=== PATIENT | male | born 1940 | race Caucasian/White ===

== ENCOUNTER 2020-05-16 15:42 | Observation (INO) | payer MEDICARE, BC ==
[2020-05-16] MEDS ORDERED: Glucagon,Human Recombinant 1 MG Vial IM PRN ×2 (16:26)
[2020-05-16] MEDS ORDERED: 50% Dextrose in Water 50 ML Syringe IV PRN (16:26)
[2020-05-16] MEDS ORDERED: Ondansetron 4 MG Tab.DIS PO PRN (16:26)
[2020-05-16] MEDS ORDERED: Ondansetron 4 MG/2 ML SDV IVPUSH PRN (16:26)
[2020-05-16] MEDS ORDERED: 50% Dextrose in Water 50 ML Syringe IVPUSH PRN (16:26)
[2020-05-16] MEDS ORDERED: Albuterol 0.083% 2.5 MG/3 ML Neb Soln NEB PRN (16:26)
[2020-05-16] MEDS ORDERED: Acetaminophen 325 MG Tab PO PRN (16:26)
[2020-05-16] MEDS ORDERED: LORazepam 1 MG Tab PO PRN (16:33)
[2020-05-16] MEDS ORDERED: Piperacillin/Tazobactam 3.375 GM in Sodium Chloride 0.9% 100 ML IV ONE (17:00)
--- NOTE | 2020-05-16 17:08 | PCM.HP ---
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 Patient reports that his symptoms started yesterday around about afternoon. States that he has felt weak and also started feeling bilateral lower abdominal pain last night that was about 5/10, constant, and nonradiating. Reports that he went to the bathroom multiple times to pee but could not empty his bladder. Reports that at baseline, he normally uses the bathroom twice a night. Denies any hematuria, dysuria, fevers, chills, cough, shortness of breath, chest pain, nausea, vomiting, rhinorrhea, sore throat, vision changes, lightheadedness, focal weakness, or focal loss of sensation. He reports that at baseline he has had tingling sensation in his fingers for 15 years. He otherwise denies any acute focal neurologic symptoms. Reports that he drinks 1 or 2 beers occasionally. Denies tobacco or illicit drug use. Per chart review, patient has MS with spasticity and was last seen by his neurologist about 3 and half years ago. Has no recent hospitalization. In the clinic, CT abdomen pelvis showed symmetric mild enlargement inhomogeneously dense prostate gland with dense midline calcifications elevating the base of the bladder and associated with mild ureterectasis bilaterally. Also showed distended urinary bladder with concern for bladder outlet obstruction. UA was negative for nitrites or leukocytes. CBC showed WBC count of 16.81 with neutrophil count of 84.3 and absolute neutrophil count of 14.19. Renal function was stable with creatinine of 1.2 which is baseline. Bicarb normal at 24.5 and anion gap normal at 12.5. LFTs were normal. - Related Data Allergies/Adverse Reactions: Allergies Allergy/AdvReac Type Severity Reaction Status Date / Time No Known Allergies Allergy Verified 02/01/17 10:26 Home Medications: Home Meds Ascorbic Acid [Vitamin C] 500 mg PO DAILY 05/16/20 [History] Aspirin [Aspirin EC] 81 mg PO DAILY 05/16/20 [History] Baclofen 10 mg PO TID 05/16/20 [History] Calcium Carb, Citrate/Vit D3 [Citracal + D ER] 1 tab PO DAILY 05/16/20 [History] Cyanocobalamin (Vitamin B-12) [Vitamin B12] 2,500 mcg PO DAILY 05/16/20 [History] Folic Acid 0.8 mg PO DAILY 05/16/20 [History] LORazepam [Lorazepam] 1 mg PO BEDTIME PRN 05/16/20 [History] Omeprazole 20 mg PO ACBREAKFAST 05/16/20 [History] Pravastatin [Pravachol] 20 mg PO BEDTIME 05/16/20 [History] Sulfamethoxazole/Trimethoprim [Bactrim Ds Tablet] 1 tab PO BID 05/16/20 [History] Vitamin B Complex [B Complex] 1 tab PO DAILY 05/16/20 [History] amLODIPine [Norvasc] 5 mg PO DAILY 05/16/20 [History] metFORMIN [Glucophage XR] 1,000 mg PO BIDMEALS 05/16/20 [History] H&P Review of Systems - Review of Systems: Review Of Systems: Comprehensive ROS is negative, except as noted in HPI. Exam - Exam Exam: See Below - Exam General: Alert, Oriented, Cooperative HEENT: Conjunctiva Clear, EOMI, Hearing Intact, Mucosa Moist & [place] Neck: Supple, Trachea Midline Lungs: Clear to Auscultation, Normal Respiratory Effort Cardiovascular: Regular Rate, Regular Rhythm GI/Abdominal Exam: Normal Bowel Sounds, Soft, Non-Tender, No Distention Extremities: Normal Inspection, Normal Range of Motion, Non-Tender, No Pedal Edema Peripheral Pulses: 2+: Radial (L), Radial (R), Dorsalis Pedis (L), Dorsalis Pedis (R) Skin: Warm, Dry, Intact Neuro Extensive - Mental Status: Alert, Oriented x3, Normal Mood/Affect Psychiatric: Alert, Normal Affect, Normal Mood - Patient Data Lab Results Last 24 hrs: Laboratory Results - last 24 hr 05/16/20 Range/Units 15:55 SARS-CoV-2 RNA ([facility]O) Negative (NEGATIVE) - Problem List (1) Acute urinary retention SNOMED Code(s): 625055631 ICD Code: R33.8 - OTHER RETENTION OF URINE Status: Acute Current Visit: Yes (2) SIRS (systemic inflammatory response syndrome) SNOMED Code(s): 585900684 ICD Code: R65.10 - SIRS OF NON-INFECTIOUS ORIGIN W/O ACUTE ORGAN DYSFUNCTION Status: Acute Current Visit: Yes (3) Multiple sclerosis SNOMED Code(s): 02965887 ICD Code: G35 - MULTIPLE SCLEROSIS Status: Acute Current Visit: Yes (4) Type II diabetes mellitus SNOMED Code(s): 68225028 ICD Code: E11.9 - TYPE 2 DIABETES MELLITUS WITHOUT COMPLICATIONS Status: Acute Current Visit: Yes (5) REGINO (obstructive sleep apnea) SNOMED Code(s): 53095525 ICD Code: G47.33 - OBSTRUCTIVE SLEEP APNEA (ADULT) (PEDIATRIC) Status: Acute Current Visit: Yes (6) Hypercholesteremia SNOMED Code(s): 43905500 ICD Code: E78.00 - PURE HYPERCHOLESTEROLEMIA, UNSPECIFIED Status: Acute Current Visit: Yes (7) Essential hypertension SNOMED Code(s): 86437628 ICD Code: I10 - ESSENTIAL (PRIMARY) HYPERTENSION Status: Acute Current Visit: Yes Problem List Initiated/Reviewed/Updated: Yes Orders Last 24hrs: Active Orders 24 hr Category Date Time Status Patient Status [ADT] Routine ADT 05/16/20 15:46 Active Blood Glucose Check, Bedside [RC] QIDACANDBED Care 05/16/20 16:26 Ordered Diabetes Education [RC] Click to Edit Care 05/16/20 16:28 Ordered Insert Urinary Catheter [OM.PC] Q24H Care 05/16/20 16:45 Ordered Notify Provider [RC] PRN Care 05/16/20 16:28 Ordered Oxygen Therapy [RC] PRN Care 05/16/20 16:28 Ordered RT Aerosol Therapy [RC] ASDIRECTED Care 05/16/20 16:32 Ordered Urinary Catheter Assessment [RC] ASDIRECTED Care 05/16/20 16:42 Ordered VTE/DVT Education [RC] PER UNIT ROUTINE Care 05/16/20 16:28 Ordered Vital Signs [RC] Q4H Care 05/16/20 16:28 Ordered OT Evaluation and Treatment [CONS] Routine Cons 05/16/20 16:26 Ordered PT Evaluation and Treatment [CONS] Routine Cons 05/16/20 16:26 Ordered Consistent Carbohydrate Diet [DIET] Diet 05/16/20 Dinner Ordered Lumbar Spine Comp w wo Cont [MR] Routine Exams 05/16/20 16:36 Ordered CULTURE BLOOD [BC] Stat Lab 05/16/20 16:42 Ordered CULTURE BLOOD [BC] Stat Lab 05/16/20 16:42 Ordered Acetaminophen [TylenoL] Med 05/16/20 16:26 Ordered 650 mg PO Q4H PRN Albuterol [Proventil Neb Soln] Med 05/16/20 16:26 Ordered 2.5 mg NEB Q2H PRN Ascorbic Acid [Vitamin C] Med 05/17/20 09:00 Ordered 500 mg PO DAILY Aspirin [Halfprin] Med 05/17/20 09:00 Ordered 81 mg PO DAILY Baclofen [Lioresal] Med 05/16/20 21:00 Ordered 10 mg PO TID Calcium Carb, Citrate/Vit D3 [Citracal + D ER] Med 05/17/20 09:00 Ordered 1 tab PO DAILY Cyanocobalamin (Vitamin B-12) [Vitamin B12] Med 05/17/20 09:00 Ordered 2,500 mcg PO DAILY Dextrose 50% in Water Med 05/16/20 16:26 Ordered 25 ml IVPUSH ASDIRECTED PRN Dextrose 50% in Water Med 05/16/20 16:26 Ordered 50 ml IV ASDIRECTED PRN Docusate Sodium/Sennosides [Senna Plus] Med 05/16/20 16:26 Ordered 1 tab PO BEDTIME PRN Enoxaparin [Lovenox] Med 05/17/20 09:00 Ordered 40 mg SUBCUT DAILY Folic Acid [Folic Acid] Med 05/17/20 09:00 Ordered 0.8 mg PO DAILY Glucagon,Human Recombinant [GlucaGen] Med 05/16/20 16:26 Ordered 1 mg IM ASDIRECTED PRN Insulin Lispro [HumaLOG] Med 05/16/20 21:00 Ordered See Protocol SUBCUT ACBED LORazepam [Ativan] Med 05/16/20 16:33 Ordered 1 mg PO BEDTIME PRN Omeprazole Med 05/17/20 06:00 Ordered 20 mg PO ACBREAKFAST Ondansetron [Zofran ODT] Med 05/16/20 16:26 Ordered 4 mg PO Q6H PRN Ondansetron [Zofran] Med 05/16/20 16:26 Ordered 4 mg IVPUSH Q6H PRN Piperacillin/Tazobactam [Zosyn] 3.375 gm Med 05/16/20 16:54 Ordered Sodium Chloride 0.9% [Normal Saline] 100 ml IV ONETIME Pravastatin [Pravachol] Med 05/16/20 21:00 Ordered 20 mg PO BEDTIME Vitamin B Complex [B Complex] Med 05/17/20 09:00 Ordered 1 tab PO DAILY amLODIPine [Norvasc] Med 05/17/20 09:00 Ordered 5 mg PO DAILY Blood Culture x2 Reflex Set [OM.PC] Stat Oth 05/16/20 16:35 Ordered Resuscitation Status Routine Resus Stat 05/16/20 16:26 Ordered Medication Orders Acetaminophen (Tylenol) 650 mg PO Q4H PRN PRN Reason: Pain Albuterol (Proventil Neb Soln) 2.5 mg NEB Q2H PRN PRN Reason: shortness of breath/wheezing Amlodipine Besylate (Norvasc) 5 mg PO DAILY [facility] Aspirin (Halfprin) 81 mg PO DAILY [facility] Baclofen (Lioresal) 10 mg PO TID [facility] Dextrose/Water (Dextrose 50% In Water) 25 ml IVPUSH ASDIRECTED PRN PRN Reason: Hypoglycemia Dextrose/Water (Dextrose 50% In Water) 50 ml IV ASDIRECTED PRN PRN Reason: Hypoglycemia Enoxaparin Sodium (Lovenox) 40 mg SUBCUT DAILY [facility] Glucagon (Glucagen) 1 mg IM ASDIRECTED PRN PRN Reason: Hypoglycemia Piperacillin Sod/Tazobactam (Sod 3.375 gm/ Sodium Chloride) 100 mls @ 200 mls/hr IV ONETIME ONE Stop: 05/16/20 17:29 Insulin Human Lispro (Humalog) 0 unit SUBCUT QIDACANDBED [facility]; Protocol Lorazepam (Ativan) 1 mg PO BEDTIME PRN PRN Reason: Sleep Non-Formulary Medication (Ascorbic Acid [Vitamin C]) 500 mg PO DAILY [facility] Non-Formulary Medication (Calcium Carb, Citrate/Vit D3 [Citracal + D Er]) 1 tab PO DAILY [facility] Non-Formulary Medication (Cyanocobalamin (Vitamin B-12) [Vitamin B12]) 2,500 mcg PO DAILY [facility] Non-Formulary Medication (Folic Acid [Folic Acid]) 0.8 mg PO DAILY [facility] Non-Formulary Medication (Vitamin B Complex [B Complex]) 1 tab PO DAILY [facility] Omeprazole (Omeprazole) 20 mg PO ACBREAKFAST [facility] Ondansetron HCl (Zofran Odt) 4 mg PO Q6H PRN PRN Reason: nausea, able to take PO Ondansetron HCl (Zofran) 4 mg IVPUSH Q6H PRN PRN Reason: Nausea/Vomiting Pravastatin Sodium (Pravachol) 20 mg PO BEDTIME [facility] Senna/Docusate Sodium (Senna Plus) 1 tab PO BEDTIME PRN PRN Reason: Constipation Assessment/Plan Comment:: Patient is a 80-year-old male with medical history significant for multiple sclerosis, 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 No definitive source of infection on physical exam, his tory, or imaging. #Acute urinary tension #Probable MS flare: Patient with urinary retention with dribbling and urinary frequency. CT scan shows mild prostate enlargement out of proportion with patient symptoms. He also reports weakness. UA is negative for leukocytes or nitrites. Patient had leukocytosis and tachycardia in clinic. Espinoza catheter placement Due to patient's presentation with acute urinary retention and negative UA and CT with no significant planning to explain his urinary retention, there was concern of probable MS flare. Especially given the context of weakness that started around the same time as his urinary retention. However, I am unable to obtain MRI and there is no neurology service available. Therefore patient needs to be transferred to higher level of care. #SIRS: Patient with WBC count of 16 and heart rate of 100 in the clinic. UA is negative. CT abdomen pelvis negative for source of infection. Lungs are clear. Patient denies any upper respiratory symptoms. He has been afebrile. Obtain blood cultures Empiric antibiotics #Type 2 diabetes Hold Metformin Cover with sliding scale insulin hypoglycemia protocol #Multiple sclerosis: Continue baclofen and Klonopin #REGINO: CPAP at night #Hypertension Continue home medication DVT prophylaxis: Heparin GI prophylaxis: Diabetic diet CODE STATUS: Full code per patient preference
--- NOTE | 2020-05-16 17:53 | PCM.DCSUM1 ---
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 Patient reports that his symptoms started yesterday around about afternoon. States that he has felt weak and also started feeling bilateral lower abdominal pain last night that was about 5/10, constant, and nonradiating. Reports that he went to the bathroom multiple times to pee but could not empty his bladder. Reports that at baseline, he normally uses the bathroom twice a night. Denies any hematuria, dysuria, fevers, chills, cough, shortness of breath, chest pain, nausea, vomiting, rhinorrhea, sore throat, vision changes, lightheadedness, focal weakness, or focal loss of sensation. In the clinic, CT abdomen pelvis showed symmetric mild enlargement inhomogeneously dense prostate gland with dense midline calcifications elevating the base of the bladder and associated with mild ureterectasis bilaterally. Also showed distended urinary bladder with concern for bladder outlet obstruction. UA was negative for nitrites or leukocytes. CBC showed WBC count of 16.81 with neutrophil count of 84.3 and absolute neutrophil count of 14.19. Renal function was stable with creatinine of 1.2 which is baseline. Bicarb normal at 24.5 and anion gap normal at 12.5. LFTs were normal. Patient was admitted for possible MS flare resulting in urinary retention. Also has leukocytosis with tachycardia. Blood cultures obtained. Unable to obtain MRI locally and there is no neurology service available. Espinoza was placed and patient was started on Zosyn. He is being transferred to higher level of care. 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 Patient reports that his symptoms started yesterday around about afternoon. States that he has felt weak and also started feeling bilateral lower abdominal pain last night that was about 5/10, constant, and nonradiating. Reports that he went to the bathroom multiple times to pee but could not empty his bladder. Reports that at baseline, he normally uses the bathroom twice a night. Denies any hematuria, dysuria, fevers, chills, cough, shortness of breath, chest pain, nausea, vomiting, rhinorrhea, sore throat, vision changes, lightheadedness, focal weakness, or focal loss of sensation. He reports that at baseline he has had tingling sensation in his fingers for 15 years. He otherwise denies any acute focal neurologic symptoms. Reports that he drinks 1 or 2 beers occasionally. Denies tobacco or illicit drug use. Per chart review, patient has MS with spasticity and was last seen by his neurologist about 3 and half years ago. Has no recent hospitalization. In the clinic, CT abdomen pelvis showed symmetric mild enlargement inhomogeneously dense prostate gland with dense midline calcifications elevating the base of the bladder and associated with mild ureterectasis bilaterally. Also showed distended urinary bladder with concern for bladder outlet obstructi on. UA was negative for nitrites or leukocytes. CBC showed WBC count of 16.81 with neutrophil count of 84.3 and absolute neutrophil count of 14.19. Renal function was stable with creatinine of 1.2 which is baseline. Bicarb normal at 24.5 and anion gap normal at 12.5. LFTs were normal. Diagnosis: Stroke: No - Discharge Data Discharge Date: 05/16/20 Discharge Disposition: DC/Tfer to Acute Hospital 02 Condition: Good - Referral to Home Health Primary Care Physician: Vandana Robertson NP - Discharge Diagnosis/Problem(s) (1) Acute urinary retention SNOMED Code(s): 452269295 ICD Code: R33.8 - OTHER RETENTION OF URINE Status: Acute Current Visit: Yes (2) SIRS (systemic inflammatory response syndrome) SNOMED Code(s): 167157338 ICD Code: R65.10 - SIRS OF NON-INFECTIOUS ORIGIN W/O ACUTE ORGAN DYSFUNCTION Status: Acute Current Visit: Yes (3) Multiple sclerosis SNOMED Code(s): 24879093 ICD Code: G35 - MULTIPLE SCLEROSIS Status: Acute Current Visit: Yes (4) Type II diabetes mellitus SNOMED Code(s): 27925729 ICD Code: E11.9 - TYPE 2 DIABETES MELLITUS WITHOUT COMPLICATIONS Status: Acute Current Visit: Yes (5) REGINO (obstructive sleep apnea) SNOMED Code(s): 25679012 ICD Code: G47.33 - OBSTRUCTIVE SLEEP APNEA (ADULT) (PEDIATRIC) Status: Acute Current Visit: Yes (6) Hypercholesteremia SNOMED Code(s): 78085096 ICD Code: E78.00 - PURE HYPERCHOLESTEROLEMIA, UNSPECIFIED Status: Acute Current Visit: Yes (7) Essential hypertension SNOMED Code(s): 52177709 ICD Code: I10 - ESSENTIAL (PRIMARY) HYPERTENSION Status: Acute Current Visit: Yes - Patient Summary/Data Consults: Consultations 05/16/20 16:26 OT Evaluation and Treatment [CONS] Routine PT Evaluation and Treatment [CONS] Routine - Discharge Plan *PRESCRIPTION DRUG MONITORING PROGRAM REVIEWED*: No *COPY OF PRESCRIPTION DRUG MONITORING REPORT IN PATIENT SASCHA: No Home Medications: Home Meds Ascorbic Acid [Vitamin C] 500 mg PO DAILY 05/16/20 [History] Aspirin [Aspirin EC] 81 mg PO DAILY 05/16/20 [History] Baclofen 10 mg PO TID 05/16/20 [History] Calcium Carb, Citrate/Vit D3 [Citracal + D ER] 1 tab PO DAILY 05/16/20 [History] Cyanocobalamin (Vitamin B-12) [Vitamin B12] 2,500 mcg PO DAILY 05/16/20 [History] Folic Acid 0.8 mg PO DAILY 05/16/20 [History] LORazepam [Lorazepam] 1 mg PO BEDTIME PRN 05/16/20 [History] Omeprazole 20 mg PO ACBREAKFAST 05/16/20 [History] Pravastatin [Pravachol] 20 mg PO BEDTIME 05/16/20 [History] Sulfamethoxazole/Trimethoprim [Bactrim Ds Tablet] 1 tab PO BID 05/16/20 [History] Vitamin B Complex [B Complex] 1 tab PO DAILY 05/16/20 [History] amLODIPine [Norvasc] 5 mg PO DAILY 05/16/20 [History] metFORMIN [Glucophage XR] 1,000 mg PO BIDMEALS 05/16/20 [History] Referrals: Vandana Robertson NP [Primary Care Provider] - - Discharge Summary/Plan Comment DC Time >30 min.: Yes - General Info Date of Service: 05/16/20 Admission Dx/Problem (Free Text: Admission Diagnosis/Problem Admission Diagnosis/Problem Urinary retention due to benign prostatic hyperplasia - Patient Data Vitals - Most Recent: Last Vital Signs Temp 98.9 F 05/16/20 16:28 Pulse 89 05/16/20 16:28 Resp 16 05/16/20 16:28 BP 155/66 H 05/16/20 16:28 Pulse Ox 98 05/16/20 16:28 Lab Results - Last 24 hrs: Laboratory Results - last 24 hr 05/16/20 05/16/20 Range/Units 15:55 17:23 POC Glucose 162 H (83-110) mg/dl SARS-CoV-2 RNA ([facility]) Negative (NEGATIVE) Med Orders - Current: Current Medications Acetaminophen (Tylenol) 650 mg PO Q4H PRN PRN Reason: Pain Albuterol (Proventil Neb Soln) 2.5 mg NEB Q2H PRN PRN Reason: shortness of breath/wheezing Amlodipine Besylate (Norvasc) 5 mg PO DAILY [facility] Aspirin (Halfprin) 81 mg PO DAILY [facility] Baclofen (Lioresal) 10 mg PO TID [facility] Dextrose/Water (Dextrose 50% In Water) 25 ml IVPUSH ASDIRECTED PRN PRN Reason: Hypoglycemia Dextrose/Water (Dextrose 50% In Water) 50 ml IV ASDIRECTED PRN PRN Reason: Hypoglycemia Enoxaparin Sodium (Lovenox) 40 mg SUBCUT DAILY [facility] Glucagon (Glucagen) 1 mg IM ASDIRECTED PRN PRN Reason: Hypoglycemia Insulin Human Lispro (Humalog) 0 unit SUBCUT QIDACANDBED [facility]; Protocol Lorazepam (Ativan) 1 mg PO BEDTIME PRN PRN Reason: Sleep Non-Formulary Medication (Ascorbic Acid [Vitamin C]) 500 mg PO DAILY [facility] Non-Formulary Medication (Calcium Carb, Citrate/Vit D3 [Citracal + D Er]) 1 tab PO DAILY [facility] Non-Formulary Medication (Cyanocobalamin (Vitamin B-12) [Vitamin B12]) 2,500 mcg PO DAILY [facility] Non-Formulary Medication (Folic Acid [Folic Acid]) 0.8 mg PO DAILY [facility] Non-Formulary Medication (Vitamin B Complex [B Complex]) 1 tab PO DAILY [facility] Omeprazole (Omeprazole) 20 mg PO ACBREAKFAST [facility] Ondansetron HCl (Zofran Odt) 4 mg PO Q6H PRN PRN Reason: nausea, able to take PO Ondansetron HCl (Zofran) 4 mg IVPUSH Q6H PRN PRN Reason: Nausea/Vomiting Pravastatin Sodium (Pravachol) 20 mg PO BEDTIME [facility] Senna/Docusate Sodium (Senna Plus) 1 tab PO BEDTIME PRN PRN Reason: Constipation Discontinued Medications Glucagon (Glucagen) 1 mg IM ONETIME PRN PRN Reason: Hypoglycemia Piperacillin Sod/Tazobactam (Sod 3.375 gm/ Sodium Chloride) 100 mls @ 200 mls/hr IV ONETIME ONE Stop: 05/16/20 17:29 - Exam General: Reports: Alert, Oriented, Cooperative, No Acute Distress HEENT: Reports: Pupils Equal, Pupils Reactive, Mucous Membr. Moist/[place] Neck: Reports: Supple Lungs: Reports: Clear to Auscultation, Normal Respiratory Effort Cardiovascular: Reports: Regular Rate, Regular Rhythm, No Murmurs GI/Abdominal Exam: Normal Bowel Sounds, Soft, Non-Tender, No Distention Extremities: Normal Inspection, Non-Tender, No Pedal Edema Skin: Reports: Warm, Dry, Intact Neurological: Reports: No New Focal Deficit Psy/Mental Status: Reports: Alert, Normal Affect, Normal Mood
[2020-05-16] MEDS ORDERED: Insulin Lispro 100 Units/ML 3 ML Vial SUBCUT SCH (21:00)
[2020-05-16] MEDS ORDERED: Pravastatin 20 MG Tab PO SCH (21:00)
[2020-05-16] MEDS ORDERED: Baclofen 10 MG Tab PO SCH (21:00)
[2020-05-17] MEDS ORDERED: Omeprazole 20 MG Cap.CR PO SCH (06:00)
[2020-05-17] MEDS ORDERED: VIT D3 PO SCH (09:00)
[2020-05-17] MEDS ORDERED: CALCIUM CARB CITRATE PO SCH (09:00)
[2020-05-17] MEDS ORDERED: VITAMIN B COMPLEX PO SCH (09:00)
[2020-05-17] MEDS ORDERED: Non-Formulary Medication 1 Each (Ascorbic Acid [Vitamin C] 500 MG) PO SCH (09:00)
[2020-05-17] MEDS ORDERED: Enoxaparin 40 MG/0.4 ML Syringe SUBCUT SCH (09:00)
[2020-05-17] MEDS ORDERED: amLODIPine 5 MG Tab PO SCH (09:00)
[2020-05-17] MEDS ORDERED: Aspirin 81 MG Tab.EC PO SCH (09:00)
[2020-05-17] MEDS ORDERED: Non-Formulary Medication 1 Each (Folic Acid [Folic Acid] 0.8 MG) PO SCH (09:00)
[2020-05-17] MEDS ORDERED: CYANOCOBALAMIN 2500 MCG PO SCH (09:00)
== END 2020-05-16 19:30 ==
LOC: DL.MS 15:42
PROVIDERS: ADMIT Internal Medicine; ATTEND Internal Medicine
DX: R33.9 Retention of urine, unspecified (principal); R65.10 Systemic inflammatory response syndrome (SIRS) of non-infectious origin without acute organ dysfunction; G35 Multiple sclerosis; I10 Essential (primary) hypertension; K21.9 Gastro-esophageal reflux disease without esophagitis; E11.9 Type 2 diabetes mellitus without complications; E78.00 Pure hypercholesterolemia, unspecified; G47.33 Obstructive sleep apnea (adult) (pediatric); E53.8 Deficiency of other specified B group vitamins; D72.829 Elevated white blood cell count, unspecified; Z20.828 Contact with and (suspected) exposure to other viral communicable diseases; Z79.82 Long term (current) use of aspirin; Z79.899 Other long term (current) drug therapy; Z79.84 Long term (current) use of oral hypoglycemic drugs
CPT/HCPCS: 36415; 51702; 82962; 87040; 87077; 87186; 96365; G0378; G0379; J2543; J7050; U0002

== ENCOUNTER 2021-02-05 23:06 | Emergency (ER) | payer MEDICARE, BC ==
--- NOTE | 2021-02-05 23:41 | EDM.PDOC ---
ED HPI GENERAL MEDICAL PROBLEM - General Chief Complaint: Fever Stated Complaint: PAIN IN NECK,HAD TEMP 104 AT HOME Time Seen by Provider: 02/05/21 23:16 Source of Information: Reports: Patient, Family, RN Notes Reviewed History Limitations: Reports: No Limitations - History of Present Illness INITIAL COMMENTS - FREE TEXT/NARRATIVE: Pt is here for a fever that started this evening. He was sitting in his recliner when he noted a pain in his neck. His gave him an aspirin. A little while later, his noted that he was flushed and glassy eyes. She called her sons to bring a thermometer and noted his temperature was 104*F temporally. She made him drink several large glasses of cold water and gave him 1000mg of tylenol. On arrival his temperature is 100.1 and he is looking and feeling better per him and his . He denies any pain anywhere. He has a suprapubic catheter that was placed in may of last year for a neurogenic bladder. He notes this is still draining properly. No cough or shortness of breath. No runny or stuffy nose. No cold symptoms. No diarrhea or constipation, no abdominal pain. No known exposure to COVID. He has been vaccinated. Onset: Today Onset Time: 21:00 Treatments SUPERINTENDENT OF GENERATION: Reports: Acetaminophen, Aspirin - Related Data Allergies Allergy/AdvReac Type Severity Reaction Status Date / Time No Known Allergies Allergy Verified 02/01/17 10:26 Home Meds: Home Meds Ascorbic Acid [Vitamin C] 500 mg PO DAILY 05/16/20 [History] Aspirin [Aspirin EC] 81 mg PO DAILY 05/16/20 [History] Baclofen 10 mg PO TID 05/16/20 [History] Calcium Carb, Citrate/Vit D3 [Citracal + D ER] 1 tab PO DAILY 05/16/20 [History] Cyanocobalamin (Vitamin B-12) [Vitamin B12] 2,500 mcg PO DAILY 05/16/20 [History] Folic Acid 0.8 mg PO DAILY 05/16/20 [History] LORazepam [Lorazepam] 1 mg PO BEDTIME PRN 05/16/20 [History] Omeprazole 20 mg PO ACBREAKFAST 05/16/20 [History] Pravastatin [Pravachol] 20 mg PO BEDTIME 05/16/20 [History] Sulfamethoxazole/Trimethoprim [Bactrim Ds Tablet] 1 tab PO BID 05/16/20 [History] Vitamin B Complex [B Complex] 1 tab PO DAILY 05/16/20 [History] amLODIPine [Norvasc] 5 mg PO DAILY 05/16/20 [History] metFORMIN [Glucophage XR] 1,000 mg PO BIDMEALS 05/16/20 [History] Past Medical History - Past Health History Medical/Surgical History: Denies Medical/Surgical History Gastrointestinal History: Reports: Chronic Constipation Genitourinary History: Reports: Neurogenic Bladder, Retention, Urinary, Urinary Incontinence Musculoskeletal History: Reports: Other (See Below) Other Musculoskeletal History: MS Neurological History: Reports: MS Endocrine/Metabolic History: Reports: Diabetes, Type I - Infectious Disease History Infectious Disease History: Reports: Chicken Pox, Measles, Mumps, Rubella - Past Surgical History Musculoskeletal Surgical History: Reports: None Dermatological Surgical History: Reports: None Social & Family History - Family History Family Medical History: No Pertinent Family History - Caffeine Use Caffeine Use: Reports: Coffee ED ROS GENERAL - Review of Systems Review Of Systems: Comprehensive ROS is negative, except as noted in HPI. ED EXAM, GENERAL - Physical Exam Exam: See Below Exam Limited By: No Limitations General Appearance: Alert, WD/WN, No Apparent Distress Eye Exam: Bilateral Eye: Normal Inspection Ears: Normal External Exam Throat/Mouth: Normal Inspection, Normal Voice, No Airway Compromise Head: Atraumatic, Normocephalic Neck: Normal Inspection, Supple, Non-Tender Respiratory/Chest: No Respiratory Distress, Lungs Clear, Normal Breath Sounds, No Accessory Muscle Use. No: Rales, Rhonchi, Wheezing Cardiovascular: Normal Peripheral Pulses, Regular Rate, Rhythm, No Murmur GI/Abdominal: Soft, Non-Tender, No Distention, Other (suprapubic catheter in place, no noted surrounding erythema, warmth or induration). No: Guarding, Rebound (Male) Exam: Deferred Rectal (Males) Exam: Deferred Back Exam: Normal Inspection, Full Range of Motion Extremities: Normal Inspection, No Pedal Edema, Normal Capillary Refill Neurological: Alert, Oriented, Normal Cognition, No Motor/Sensory Deficits Psychiatric: Normal Affect, Normal Mood Skin Exam: Warm, Dry, Intact, Normal Color, No Rash Lymphatic: No Adenopathy Course - Vital Signs Last Recorded V/S: Last Vital Signs Temp 100.1 F 02/05/21 23:28 Pulse 89 02/05/21 23:28 Resp 16 02/05/21 23:28 BP 126/49 L 02/05/21 23:28 Pulse Ox 95 02/05/21 23:28 - Orders/Labs/Meds Orders: Active Orders 24 hr Category Date Time Status CULTURE BLOOD [BC] Stat Lab 02/05/21 23:36 Ordered CULTURE BLOOD [BC] Stat Lab 02/05/21 23:36 Ordered CULTURE URINE [RM] Stat Lab 02/05/21 23:39 Received cefTRIAXone [Rocephin] 1 gm Med 02/06/21 00:37 Ordered Sodium Chloride 0.9% [Normal Saline] 50 ml IV ONETIME Blood Culture x2 Reflex Set [OM.PC] Stat Oth 02/05/21 23:35 Ordered Medication Orders Ceftriaxone Sodium 1 gm/ (Sodium Chloride) 50 mls @ 100 mls/hr IV ONETIME ONE Stop: 02/06/21 01:06 Labs: Laboratory Tests 02/05/21 02/05/21 02/05/21 Range/Units 23:39 23:50 23:50 WBC 15.0 H (5.0-10.0) 10^3/uL RBC 3.27 L (4.6-6.2) 10^6/uL Hgb 11.3 L (14.0-18.0) g/dL Hct 33.7 L (40.0-54.0) % MCV 103.1 H (80-100) fL MCH 34.6 H (27.0-34.0) pg MCHC 33.5 (33.0-35.0) g/dL Plt Count 162 (150-450) 10^3/uL Neut % (Auto) 80.2 H (42.2-75.2) % Lymph % (Auto) 8.3 L (20.5-50.1) % Haines % (Auto) 11.1 H (2-8) % Eos % (Auto) 0.1 L (1.0-3.0) % Baso % (Auto) 0.3 (0.0-1.0) % Sodium 136 (136-145) mmol/L Potassium 4.1 (3.5-5.1) mmol/L Chloride 100 (98-107) mmol/L Carbon Dioxide 26 (21-32) mmol/L Anion Gap 14.1 H (7-13) mEq/L BUN 18 (7-18) mg/dL Creatinine 1.23 (0.70-1.30) mg/dL Est Cr Clr Drug Dosing 54.33 mL/min Estimated GFR (MDRD) 57 BUN/Creatinine Ratio 14.6 (No establ ref range) Glucose 141 H (70-99) mg/dL Lactic Acid (0.4-2.0) mmol/L Calcium 8.0 L (8.5-10.1) mg/dL Total Bilirubin 0.5 (0.2-1.0) mg/dL AST 11 L (15-37) U/L ALT 17 (16-63) U/L Alkaline Phosphatase 63 (46-116) U/L Total Protein 6.2 L (6.4-8.2) g/dL Albumin 3.5 (3.4-5.0) g/dL Globulin 2.7 Albumin/Globulin Ratio 1.3 Urine Color Yellow (YELLOW) Urine Appearance Cloudy (CLEAR) Urine pH 6.0 (5.0-9.0) Ur Specific [place] 1.020 (1.005-1.030) Urine Protein 100 H (NEGATIVE) Urine Glucose (UA) Negative (NEGATIVE) Urine Ketones Negative (NEGATIVE) Urine Occult Blood Moderate H (NEGATIVE) Urine Nitrite Positive H (NEGATIVE) Urine Bilirubin Negative (NEGATIVE) Urine Urobilinogen 0.2 (0.2-1.0) mg/dL Ur Leukocyte Esterase Large H (NEGATIVE) Urine RBC 5-10 H (0-5) /HPF Urine WBC 75-100 H (0-5/HPF) /HPF Ur Epithelial Cells Rare (NOT SEEN) /HPF Amorphous Sediment Moderate (NOT SEEN) /HPF Urine Bacteria Many H (0-FEW/HPF) /HPF Urine Mucus Few H (NOT SEEN) /LPF 02/05/ Range/Units 23:50 WBC (5.0-10.0) 10^3/uL RBC (4.6-6.2) 10^6/uL Hgb (14.0-18.0) g/dL Hct (40.0-54.0) % MCV (80-100) fL MCH (27.0-34.0) pg MCHC (33.0-35.0) g/dL Plt Count (150-450) 10^3/uL Neut % (Auto) (42.2-75.2) % Lymph % (Auto) (20.5-50.1) % [place]aines % (Auto) (2-8) % Eos % (Auto) (1.0-3.0) % Baso % (Auto) (0.0-1.0) % Sodium (136-145) mmol/L Potassium (3.5-5.1) mmol/L Chloride (98-107) mmol/L Carbon Dioxide (21-32) mmol/L Anion Gap (7-13) mEq/L BUN (7-18) mg/dL Creatinine (0.70-1.30) mg/dL Est Cr Clr Drug Dosing mL/min Estimated GFR (MDRD) BUN/Creatinine Ratio (No establ ref range) Glucose (70-99) mg/dL Lactic Acid 1.7 (0.4-2.0) mmol/L Calcium (8.5-10.1) mg/dL Total Bilirubin (0.2-1.0) mg/dL AST (15-37) U/L ALT (16-63) U/L Alkaline Phosphatase (46-116) U/L Total Protein (6.4-8.2) g/dL Albumin (3.4-5.0) g/dL Globulin Albumin/Globulin Ratio Urine Color (YELLOW) Urine Appearance (CLEAR) Urine pH (5.0-9.0) Ur Specific [place] (1.005-1.030) Urine Protein (NEGATIVE) Urine Glucose (UA) (NEGATIVE) Urine Ketones (NEGATIVE) Urine Occult Blood (NEGATIVE) Urine Nitrite (NEGATIVE) Urine Bilirubin (NEGATIVE) Urine Urobilinogen (0.2-1.0) mg/dL Ur Leukocyte Esterase (NEGATIVE) Urine RBC (0-5) /HPF Urine WBC (0-5/HPF) /HPF Ur Epithelial Cells (NOT SEEN) /HPF Amorphous Sediment (NOT SEEN) /HPF Urine Bacteria (0-FEW/HPF) /HPF Urine Mucus (NOT SEEN) /LPF Meds: Medications Generic Name Dose Route Start Last Admin Trade Name Freq PRN Reason Stop Dose Admin Ceftriaxone Sodium 1 gm/ 50 mls @ 100 mls/hr 02/06/21 00:37 Sodium Chloride IV 02/06/21 01:06 ONETIME ONE - Re-Assessments/Exams Free Text/Narrative Re-Assessment/Exam: Reviewed labs and imaging with the pt and his . Rocephin given in the ER, sent home with Rx for keflex. 02/06/21 00:38 Departure - Departure Time of Disposition: 00:39 Disposition: Home, Self-Care 01 Condition: Fair Clinical Impression: UTI (urinary tract infection) Qualifiers: Urinary tract infection type: catheter-associated UTI Indwelling urinary catheter type: cystostomy catheter Encounter type: initial encounter Qualified Code(s): T83.510A - Infection and inflammatory reaction due to cystostomy catheter, initial encounter; N39.0 - Urinary tract infection, site not specified - Discharge Information *PRESCRIPTION DRUG MONITORING PROGRAM REVIEWED*: Not Applicable *COPY OF PRESCRIPTION DRUG MONITORING REPORT IN PATIENT SASCHA: Not Applicable Instructions: Urinary Tract Infection, Adult, [id number] Forms: ED Department Discharge Additional Instructions: Rocephin given in the ER Keflex three times daily for 10 days Over the counter medications as needed to keep down fevers Follow up with primary care provider and specialists as previously arranged, or sooner if needed. Sepsis Event Note (ED) - Evaluation Sepsis Screening Result: Possible Sepsis Risk - Focused Exam Vital Signs: Vital Signs Temp Pulse Resp BP Pulse Ox 02/05/21 23:28 100.1 F 89 16 126/49 L 95 - My Orders Last 24 Hours: My Active Orders 02/05/21 23:35 Blood Culture x2 Reflex Set [OM.PC] Stat 02/05/21 23:36 CULTURE BLOOD [BC] Stat CULTURE BLOOD [BC] Stat 02/05/21 23:39 CULTURE URINE [RM] Stat 02/06/21 00:37 cefTRIAXone [Rocephin] 1 gm Sodium Chloride 0.9% [Normal Saline] 50 ml IV ONETIME - Assessment/Plan Last 24 Hours: My Active Orders 02/05/21 23:35 Blood Culture x2 Reflex Set [OM.PC] Stat 02/05/21 23:36 CULTURE BLOOD [BC] Stat CULTURE BLOOD [BC] Stat 02/05/21 23:39 CULTURE URINE [RM] Stat 02/06/21 00:37 cefTRIAXone [Rocephin] 1 gm Sodium Chloride 0.9% [Normal Saline] 50 ml IV ONETIME
[2021-02-06 00:19] LABS: ANION GAP 14.1 mEq/L (7-13)
--- NOTE | 2021-02-06 00:26 | CR ---
PROCEDURE INFORMATION: Exam: XR Chest Exam date and time: 02/05/2021 11:56 PM Age: 80 years old Clinical indication: Fever TECHNIQUE: Imaging protocol: XR of the chest. Views: 1 view. COMPARISON: No relevant prior studies available. FINDINGS: Lungs: Small areas increased density at the lung bases consistent with subsegmental atelectasis. The remainder of the lung hernandez are clear. Pleural spaces: Slight pleural tenting is seen in the left base presumed from previous inflammatory changes. Heart/Mediastinum: Unremarkable. No cardiomegaly. Bones/joints: Unremarkable. IMPRESSION: Minimal changes at the lung bases only as above
[2021-02-06] MEDS ORDERED: cefTRIAXone 1 GM in Sodium Chloride 0.9% 50 ML IV ONE (00:37)
== END 2021-02-06 00:59 | disposition home or self-care (01) ==
LOC: DL.ED 23:06
DX: T83.510A Infection and inflammatory reaction due to cystostomy catheter, initial encounter (principal); N39.0 Urinary tract infection, site not specified; E10.9 Type 1 diabetes mellitus without complications; Z79.82 Long term (current) use of aspirin; Z79.899 Other long term (current) drug therapy
CPT/HCPCS: 36415; 71045; 80053; 81001; 83605; 85025; 87040; 87086; 87088; 87186; 96374; 99284; J0696

== ENCOUNTER 2021-02-08 23:45 | Emergency (ER) | payer MEDICARE, BC ==
--- NOTE | 2021-02-09 00:29 | EDM.PDOC ---
ED HPI GENERAL MEDICAL PROBLEM - General Chief Complaint: Genitourinary Problem Stated Complaint: BLADDER INFECTION, HIGH TEMP Time Seen by Provider: 02/09/21 00:27 Source of Information: Reports: Patient History Limitations: Reports: No Limitations - History of Present Illness INITIAL COMMENTS - FREE TEXT/NARRATIVE: ED with , reports continued fever. Seen on Saturday with UTI, Suprapubic catheter changed on Saturday. Hx MS and neurogenic bladder. Multiple UTIS in past but this is first since suprapubic catheter placed in May. Appetite fair. Tylenol not much relief today but ibuprofen helped tonight . notes diaphoresis. Patient denies significant c/o - Related Data Allergies Allergy/AdvReac Type Severity Reaction Status Date / Time No Known Allergies Allergy Verified 02/01/17 10:26 Home Meds: Home Meds Ascorbic Acid [Vitamin C] 500 mg PO DAILY 05/16/20 [History] Aspirin [Aspirin EC] 81 mg PO DAILY 05/16/20 [History] Baclofen 10 mg PO TID 05/16/20 [History] Calcium Carb, Citrate/Vit D3 [Citracal + D ER] 1 tab PO DAILY 05/16/20 [History] Cyanocobalamin (Vitamin B-12) [Vitamin B12] 2,500 mcg PO DAILY 05/16/20 [History] Folic Acid 0.8 mg PO DAILY 05/16/20 [History] LORazepam [Lorazepam] 1 mg PO BEDTIME PRN 05/16/20 [History] Omeprazole 20 mg PO ACBREAKFAST 05/16/20 [History] Pravastatin [Pravachol] 20 mg PO BEDTIME 05/16/20 [History] Sulfamethoxazole/Trimethoprim [Bactrim Ds Tablet] 1 tab PO BID 05/16/20 [History] Vitamin B Complex [B Complex] 1 tab PO DAILY 05/16/20 [History] amLODIPine [Norvasc] 5 mg PO DAILY 05/16/20 [History] metFORMIN [Glucophage XR] 1,000 mg PO BIDMEALS 05/16/20 [History] Past Medical History - Past Health History Medical/Surgical History: Denies Medical/Surgical History HEENT History: Reports: None Cardiovascular History: Reports: High Cholesterol, Hypertension Respiratory History: Reports: None Gastrointestinal History: Reports: Chronic Constipation Genitourinary History: Reports: Neurogenic Bladder, Retention, Urinary, Urinary Incontinence Musculoskeletal History: Reports: Other (See Below) Other Musculoskeletal History: MS Neurological History: Reports: MS Psychiatric History: Reports: None Endocrine/Metabolic History: Reports: Diabetes, Type I Hematologic History: Reports: None Immunologic History: Reports: None Oncologic (Cancer) History: Reports: None - Infectious Disease History Infectious Disease History: Reports: Chicken Pox, Measles, Mumps, Rubella - Past Surgical History Head Surgeries/Procedures: Reports: None Male Surgical History: Reports: Suprapubic Catheter Placement Musculoskeletal Surgical History: Reports: None Dermatological Surgical History: Reports: None Social & Family History - Family History Family Medical History: No Pertinent Family History - Tobacco Use Tobacco Use Status *Q: Never Tobacco User Second Hand Smoke Exposure: No - Caffeine Use Caffeine Use: Reports: Coffee - Recreational Drug Use Recreational Drug Use: No ED ROS GENERAL - Review of Systems Review Of Systems: Comprehensive ROS is negative, except as noted in HPI. ED EXAM, GI/ABD - Physical Exam Exam: See Below Exam Limited By: No Limitations General Appearance: Alert, No Apparent Distress Ears: Normal External Exam, Hearing Grossly Normal Nose: Normal Inspection Throat/Mouth: Normal Inspection, Normal Oropharynx, Inflammation Head: Normocephalic Neck: Normal Inspection, Supple, Full Range of Motion Respiratory/Chest: No Respiratory Distress, Lungs Clear, Normal Breath Sounds Cardiovascular: Regular Rate, Rhythm GI/Abdominal Exam: Normal Bowel Sounds, Soft. No: Distended, Guarding, Rebound, Tender, Abnormal Bowel Sounds Back Exam: No: CVA Tenderness (L), CVA Tenderness (R) Neurological: Alert, Oriented, Normal Cognition Psychiatric: Normal Affect Skin Exam: Warm, Dry, Normal Color Course - Vital Signs Last Recorded V/S: Last Vital Signs Temp 98.5 F 02/09/21 02:05 Pulse 88 02/09/21 00:04 Resp 18 02/09/21 00:04 BP 121/52 L 02/09/21 00:04 Pulse Ox 94 L 02/09/21 00:04 - Orders/Labs/Meds Orders: Active Orders 24 hr Category Date Time Status CULTURE BLOOD [BC] Stat Lab 02/09/21 00:40 Received CULTURE BLOOD [BC] Stat Lab 02/09/21 00:44 Received Blood Culture x2 Reflex Set [OM.PC] Stat Oth 02/09/21 00:27 Ordered Labs: Laboratory Tests 02/09/21 02/09/2102/09/21 Range/Units 00:40 00:40 00:40 WBC 6.1 (5.0-10.0) 10^3/uL RBC 3.37 L (4.6-6.2) 10^6/uL Hgb 11.7 L (14.0-18.0) g/dL Hct 34.3 L (40.0-54.0) % MCV 101.8 H (80-100) fL MCH 34.7 H (27.0-34.0) pg MCHC 34.1 (33.0-35.0) g/dL Plt Count 138 L (150-450) 10^3/uL Neut % (Auto) 80.1 H (42.2-75.2) % Lymph % (Auto) 11.1 L (20.5-50.1) % [place] % (Auto) 7.8 (2-8) % Eos % (Auto) 0.5 L (1.0-3.0) % Baso % (Auto) 0.5 (0.0-1.0) % Sodium 135 L (136-145) mmol/L Potassium 4.0 (3.5-5.1) mmol/L Chloride 99 (98-107) mmol/L Carbon Dioxide 24 (21-32) mmol/L Anion Gap 16.0 H (7-13) mEq/L BUN 19 H (7-18) mg/dL Creatinine 1.13 (0.70-1.30) mg/dL Est Cr Clr Drug Dosing 48.62 mL/min Estimated GFR (MDRD) > 60 BUN/Creatinine Ratio 16.8 (No establ ref range) Glucose 117 H (70-99) mg/dL Lactic Acid 1.1 (0.4-2.0) mmol/L Calcium 8.2 L (8.5-10.1) mg/dL Total Bilirubin 0.3 (0.2-1.0) mg/dL AST 32 (15-37) U/L ALT 35 (16-63) U/L Alkaline Phosphatase 75 (46-116) U/L Total Protein 6.5 (6.4-8.2) g/dL Albumin 3.1 L (3.4-5.0) g/dL Globulin 3.4 Albumin/Globulin Ratio 0.91 Amylase 73 (25-115) U/L Lipase 241 (73-393) U/L Meds: Medications Discontinued Medications Generic Name Dose Route Start Last Admin Trade Name Lyssa PRN Reason Stop Dose Admin Levofloxacin/Dextrose 500 mg/ 100 mls @ 100 mls/hr 02/09/21 00:44 02/09/21 00:52 Premix IV 02/09/21 01:43 100 mls/hr ONETIME ONE Administration Departure - Departure Time of Disposition: 01:40 Disposition: Home, Self-Care 01 Condition: Good Clinical Impression: UTI, Urinary tract infectious disease, History of urinary retention, Hx of multiple sclerosis - Discharge Information *PRESCRIPTION DRUG MONITORING PROGRAM REVIEWED*: No *COPY OF PRESCRIPTION DRUG MONITORING REPORT IN PATIENT SASCHA: No Instructions: Urinary Tract Infection, Adult, [id number] Forms: ED Department Discharge Additional Instructions: encourage fluids continue to monitor temperature tylenol 500mg every 4 hours as needed for fever/ discomfort, do not exceed 3000mg in 24 hour period limited use ibuprofen , may alternate with tylenol Clinic recheck on Saturday, sooner if symptoms worsen Sepsis Event Note (ED) - Focused Exam Vital Signs: Vital Signs Temp Pulse Resp BP Pulse Ox 02/09/21 02:05 98.5 F 02/09/21 00:04 98.5 F 88 18 121/52 L 94 L - My Orders Last 24 Hours: My Active Orders 02/09/21 00:27 Blood Culture x2 Reflex Set [OM.PC] Stat 02/09/21 00:40 CULTURE BLOOD [BC] Stat 02/09/21 00:44 CULTURE BLOOD [BC] Stat - Assessment/Plan Last 24 Hours: My Active Orders 02/09/21 00:27 Blood Culture x2 Reflex Set [OM.PC] Stat 02/09/21 00:40 CULTURE BLOOD [BC] Stat 02/09/21 00:44 CULTURE BLOOD [BC] Stat
[2021-02-09] MEDS ORDERED: Levofloxacin/Dextrose 5%-Water 500 MG in Premix Bag 1 BAG IV ONE (00:44)
[2021-02-09 01:27] LABS: CHLORIDE,CL 99 mmol/L (98-107); SODIUM,NA 135 mmol/L (136-145)
== END 2021-02-09 02:05 | disposition home or self-care (01) ==
LOC: DL.ED 23:45
DX: N39.0 Urinary tract infection, site not specified (principal); Z79.82 Long term (current) use of aspirin; E78.00 Pure hypercholesterolemia, unspecified; I10 Essential (primary) hypertension; E10.8 Type 1 diabetes mellitus with unspecified complications; Z79.899 Other long term (current) drug therapy; Z87.448 Personal history of other diseases of urinary system; Z86.69 Personal history of other diseases of the nervous system and sense organs
CPT/HCPCS: 36415; 80053; 82150; 83605; 83690; 85025; 87040; 96365; 99284; J1956

== ENCOUNTER 2021-03-14 17:17 | Emergency (ER) | payer MEDICARE, BC | END 2021-03-14 19:00 | disposition left against medical advice (07) | LOC: DL.ED 17:17 | DX: Z53.21 Procedure and treatment not carried out due to patient leaving prior to being seen by health care provider (principal) ==

== ENCOUNTER 2021-05-22 00:12 | Inpatient (IN) | payer MEDICARE, BC ==
--- NOTE | 2021-05-22 00:48 | CR ---
PROCEDURE INFORMATION: Exam: XR Chest Exam date and time: 05/22/2021 12:28 AM Age: 81 years old Clinical indication: Other: Fever TECHNIQUE: Imaging protocol: XR of the chest. Views: 1 view. COMPARISON: CR Chest 1V Frontal 02/05/2021 11:56 PM FINDINGS: Lungs: Unremarkable. No consolidation. Pleural spaces: Unremarkable. No pleural effusion. No pneumothorax. Heart/Mediastinum: Unremarkable. No cardiomegaly. Bones/joints: Unremarkable. IMPRESSION: No acute findings.
[2021-05-22 01:16] LABS: CHLORIDE,CL 96 mmol/L (98-107); SODIUM,NA 131 mmol/L (136-145)
[2021-05-22] MEDS ORDERED: Sodium Chloride 0.9% 1,000 ML IV ONE (01:28)
[2021-05-22] MEDS ORDERED: Levofloxacin/Dextrose 5%-Water 750 MG in Premix Bag 1 BAG IV ONE (01:32)
--- NOTE | 2021-05-22 01:45 | EDM.PDOC ---
ED HPI GENERAL MEDICAL PROBLEM - General Chief Complaint: General Stated Complaint: WEAKNESS, HIGH TEMP Time Seen by Provider: 05/22/21 01:05 Source of Information: Reports: Family, RN History Limitations: Reports: No Limitations - History of Present Illness INITIAL COMMENTS - FREE TEXT/NARRATIVE: ED with report of high fevers today up to 104.9. Hx MS, Supra pubic catheter x one year. Decreased urine output 2 days prior, , had to flush today to get to drain. Noted concentrated and lots of sediment. Due to change catheter tomorrow in clinic. reports past few times symptoms being noticed around 4-5 weeks and catheter due to be changed every 5 weeks. Increased weakness today. Usually able to walk on own or with walker, Required 2 tonight. Symptoms consistent with prior UTI's. Vomting this adán. No cough or difficulty breathing, Unsure if BM yesterday so care stool softner and mirlax. - Related Data Allergies Allergy/AdvReac Type Severity Reaction Status Date / Time No Known Allergies Allergy Verified 05/22/21 01:02 Home Meds: Home Meds Ascorbic Acid [Vitamin C] 500 mg PO DAILY 05/16/20 [History] Aspirin [Aspirin EC] 81 mg PO DAILY 05/16/20 [History] Baclofen 10 mg PO BID 05/16/20 [History] Calcium Carb, Citrate/Vit D3 [Citracal + D ER] 1 tab PO DAILY 05/16/20 [History] Cyanocobalamin (Vitamin B-12) [Vitamin B12] 2,500 mcg PO DAILY 05/16/20 [History] Folic Acid 0.8 mg PO DAILY 05/16/20 [History] LORazepam [Lorazepam] 0.5 tab PO BEDTIME PRN 05/16/20 [History] Omeprazole 20 mg PO BEDTIME 05/16/20 [History] Pravastatin [Pravachol] 20 mg PO BEDTIME 05/16/20 [History] Vitamin B Complex [B Complex] 1 tab PO DAILY 05/16/20 [History] amLODIPine [Norvasc] 5 mg PO DAILY 05/16/20 [History] metFORMIN [Glucophage XR] 1,000 mg PO BIDMEALS 05/16/20 [History] Past Medical History - Past Health History Medical/Surgical History: Denies Medical/Surgical History HEENT History: Reports: None Cardiovascular History: Reports: High Cholesterol, Hypertension Respiratory History: Reports: None Gastrointestinal History: Reports: Chronic Constipation Genitourinary History: Reports: Neurogenic Bladder, Retention, Urinary, Urinary Incontinence Musculoskeletal History: Reports: Other (See Below) Other Musculoskeletal History: MS Neurological History: Reports: MS Psychiatric History: Reports: None Endocrine/Metabolic History: Reports: Diabetes, Type I Hematologic History: Reports: None Immunologic History: Reports: None Oncologic (Cancer) History: Reports: None - Infectious Disease History Infectious Disease History: Reports: Chicken Pox, Measles, Mumps, Rubella - Past Surgical History Head Surgeries/Procedures: Reports: None Male Surgical History: Reports: Suprapubic Catheter Placement Musculoskeletal Surgical History: Reports: None Dermatological Surgical History: Reports: None Social & Family History - Family History Family Medical History: No Pertinent Family History - Tobacco Use Tobacco Use Status *Q: Former Tobacco User Used Tobacco, but Quit: Yes Month/Year Tobacco Last Used: 06/1961 - Caffeine Use Caffeine Use: Reports: Coffee Caffeine Use Comment: 1 cup coffee daily, then decaf. - Recreational Drug Use Recreational Drug Use: No ED ROS GENERAL - Review of Systems Constitutional: Reports: Fever, Chills, Malaise, Weakness, Fatigue, Decreased Appetite HEENT: Reports: No Symptoms Respiratory: Reports: No Symptoms. Denies: Cough Cardiovascular: Reports: No Symptoms GI/Abdominal: Reports: Constipation : Reports: Urinary Retention, Other (supropubic catheter.) Musculoskeletal: Reports: Muscle Stiffness Neurological: Reports: Weakness, Other (MS, sx worse when ill. more foregetful, seaker generalized stiffness following same pattern with prior infections sx worse when fever elevated. ) ED EXAM, GENERAL - Physical Exam Exam: See Below Exam Limited By: No Limitations General Appearance: Alert, Mild Distress, Other (movements stiff slow) Eye Exam: Bilateral Eye: Normal Fundi, PERRL Ears: Normal External Exam, Hearing Grossly Normal Nose: Normal Inspection Throat/Mouth: Normal Inspection Head: Atraumatic, Normocephalic Neck: Normal Inspection Cardiovascular: Normal Peripheral Pulses, Regular Rate, Rhythm GI/Abdominal: Normal Bowel Sounds, Soft, Other (suprapubic catheter) (Male) Exam: Other (indwelling ) Extremities: Limited Range of Motion Neurological: Alert, Oriented, Slow to Respond Psychiatric: Flat Affect Skin Exam: Warm, Dry, Intact, Increased Warmth, Pallor #1 Interpretation EKG Date: 05/22/21 Time: 00:38 Rhythm: NSR Rate (Beats/Min): 86 [place]: Normal P-Wave: Present QRS: Normal ST-T: Normal Comparison: NA - No Prior EKG Course - Vital Signs Last Recorded V/S: Last Vital Signs Temp 98.4 F 05/22/21 01:49 Pulse 80 05/22/21 02:00 Resp 16 05/22/21 02:00 BP 105/46 L 05/22/21 02:00 Pulse Ox 94 L 05/22/21 02:00 - Orders/Labs/Meds Orders: Active Orders 24 hr Category Date Time Status CULTURE BLOOD [BC] Stat Lab 05/22/21 00:40 Received CULTURE BLOOD [BC] Stat Lab 05/22/21 00:45 Received CULTURE URINE [RM] Routine Lab 05/22/21 02:05 Received Levofloxacin/Dextrose 5%-Water [Levaquin in D5W 750 MG/ Med 05/22/21 01:32 Active 150 ML] 750 mg Premix Bag 1 bag IV ONETIME Sodium Chloride 0.9% [Normal Saline] 1,000 ml Med 05/22/21 01:28 Active IV .BOLUS Blood Culture x2 Reflex Set [OM.PC] Stat Oth 05/22/21 00:18 Ordered Medication Orders Sodium Chloride (Normal Saline) 1,000 mls @ 200 mls/hr IV .BOLUS ONE Stop: 05/22/21 06:27 Last Admin: 05/22/21 01:38 Dose: 200 mls/hr Documented by: ERIN Levofloxacin/Dextrose 750 mg/ (Premix) 150 mls @ 100 mls/hr IV ONETIME ONE Stop: 05/22/21 03:01 Last Admin: 05/22/21 02:06 Dose: 100 mls/hr Documented by: ERIN Labs: Laboratory Tests 05/22/21 05/22/21 05/22/21 Range/Units 00:30 00:45 00:45 WBC 22.2 H (5.0-10.0) 10^3/uL RBC 3.07 L (4.6-6.2) 10^6/uL Hgb 10.4 L (14.0-18.0) g/dL Hct 31.6 L (40.0-54.0) % MCV 102.9 H (80-100) fL MCH 33.9 (27.0-34.0) pg MCHC 32.9 L (33.0-35.0) g/dL Plt Count 165 (150-450) 10^3/uL Neut % (Auto) 85.3 H (42.2-75.2) % Lymph % (Auto) 3.4 L (20.5-50.1) % [place] % (Auto) 11.0 H (2-8) % Eos % (Auto) 0.0 L (1.0-3.0) % Baso % (Auto) 0.3 (0.0-1.0) % PT (9.0-12.0) SEC INR (0.9-1.2) Sodium 131 L (136-145) mmol/L Potassium 4.0 (3.5-5.1) mmol/L Chloride 96 L (98-107) mmol/L Carbon Dioxide 25 (21-32) mmol/L Anion Gap 14.0 H (7-13) mEq/L BUN 20 H (7-18) mg/dL Creatinine 1.25 (0.70-1.30) mg/dL Est Cr Clr Drug Dosing TNP Estimated GFR (MDRD) 56 BUN/Creatinine Ratio 16.0 (No establ ref range) Glucose 176 H (70-99) mg/dL Lactic Acid (0.4-2.0) mmol/L Calcium 8.5 (8.5-10.1) mg/dL Magnesium 1.7 L (1.8-2.4) mg/dL Total Bilirubin 0.5 (0.2-1.0) mg/dL AST 11 L (15-37) U/L ALT 15 L (16-63) U/L Alkaline Phosphatase 64 (46-116) U/L Troponin I High Sens 18 (<=76) pg/mL B-Natriuretic Peptide 92 (0-100) pg/ml Total Protein 6.4 (6.4-8.2) g/dL Albumin 3.3 L (3.4-5.0) g/dL Globulin 3.1 Albumin/Globulin Ratio 1.06 Amylase 54 (25-115) U/L Lipase 168 (73-393) U/L Urine Color (YELLOW) Urine Appearance (CLEAR) Urine pH (5.0-9.0) Ur Specific [place] (1.005-1.030) Urine Protein (NEGATIVE) Urine Glucose (UA) (NEGATIVE) Urine Ketones (NEGATIVE) Urine Occult Blood (NEGATIVE) Urine Nitrite (NEGATIVE) Urine Bilirubin (NEGATIVE) Urine Urobilinogen (0.2-1.0) mg/dL Ur Leukocyte Esterase (NEGATIVE) Urine RBC (0-5) /HPF Urine WBC (0-5/HPF) /HPF Ur Epithelial Cells (NOT SEEN) /HPF Urine Bacteria (0-FEW/HPF) /HPF SARS-CoV-2 RNA ([place]) Negative (NEGATIVE) 05/22/21 05/22/21 05/22/21 Range/Units 00:45 00:45 02:05 WBC (5.0-10.0) 10^3/uL RBC (4.6-6.2) 10^6/uL Hgb (14.0-18.0) g/dL Hct (40.0-54.0) % MCV (80-100) fL MCH (27.0-34.0) pg MCHC (33.0-35.0) g/dL Plt Count (150-450) 10^3/uL Neut % (Auto) (42.2-75.2) % Lymph % (Auto) (20.5-50.1) % [place] % (Auto) (2-8) % Eos % (Auto) (1.0-3.0) % Baso % (Auto) (0.0-1.0) % PT 10.4 (9.0-12.0) SEC INR 1.0 (0.9-1.2) Sodium (136-145) mmol/L Potassium (3.5-5.1) mmol/L Chloride (98-107) mmol/L Carbon Dioxide (21-32) mmol/L Anion Gap (7-13) mEq/L BUN (7-18) mg/dL Creatinine (0.70-1.30) mg/dL Est Cr Clr Drug Dosing Estimated GFR (MDRD) BUN/Creatinine Ratio (No establ ref range) Glucose (70-99) mg/dL Lactic Acid 1.6 (0.4-2.0) mmol/L Calcium (8.5-10.1) mg/dL Magnesium (1.8-2.4) mg/dL Total Bilirubin (0.2-1.0) mg/dL AST (15-37) U/L ALT (16-63) U/L Alkaline Phosphatase (46-116) U/L Troponin I High Sens (<=76) pg/mL B-Natriuretic Peptide (0-100) pg/ml Total Protein (6.4-8.2) g/dL Albumin (3.4-5.0) g/dL Globulin Albumin/Globulin Ratio Amylase (25-115) U/L Lipase (73-393) U/L Urine Color Yellow (YELLOW) Urine Appearance Cloudy (CLEAR) Urine pH 5.5 (5.0-9.0) Ur Specific [place] 1.020 (1.005-1.030) Urine Protein 100 H (NEGATIVE) Urine Glucose (UA) Negative (NEGATIVE) Urine Ketones Negative (NEGATIVE) Urine Occult Blood Large H (NEGATIVE) Urine Nitrite Positive H (NEGATIVE) Urine Bilirubin Negative (NEGATIVE) Urine Urobilinogen 0.2 (0.2-1.0) mg/dL Ur Leukocyte Esterase Large H (NEGATIVE) Urine RBC 5-10 H (0-5) /HPF Urine WBC Packed H (0-5/HPF) /HPF Ur Epithelial Cells Occasional (NOT SEEN) /HPF Urine Bacteria Many H (0-FEW/HPF) /HPF SARS-CoV-2 RNA ([place]) (NEGATIVE) Meds: Medications Generic Name Dose Route Start Last Admin Trade Name Freq PRN Reason Stop Dose Admin Sodium Chloride 1,000 mls @ 200 mls/hr 05/22/21 01:28 05/22/21 01:38 Normal Saline IV 05/22/21 06:27 200 mls/hr .BOLUS ONE Administration Levofloxacin/Dextrose 750 mg/ 150 mls @ 100 mls/hr 05/22/21 01:32 05/22/21 02:06 Premix IV 05/22/21 03:01 100 mls/hr ONETIME ONE Administration - Re-Assessments/Exams Free Text/Narrative Re-Assessment/Exam: 05/22/21 02:[address] Aleman, agreeable patient is appropriate for admission. Departure - Departure Time of Disposition: 02:30 Disposition: Admitted As Inpatient 68 Condition: Fair Clinical Impression: UTI, Urinary tract infectious disease, Multiple sclerosis, Hypomagnesemia, Indwelling catheter present on admission - Discharge Information *PRESCRIPTION DRUG MONITORING PROGRAM REVIEWED*: No *COPY OF PRESCRIPTION DRUG MONITORING REPORT IN PATIENT SASCHA: No Forms: ED Department Discharge Sepsis Event Note (ED) - Focused Exam Vital Signs: Vital Signs Temp Pulse Resp BP Pulse Ox 05/22/21 02:00 80 16 105/46 L 94 L 05/22/21 01:49 98.4 F 05/22/21 01:15 82 19 107/47 L 93 L 05/22/21 01:01 86 20 105/48 L 93 L 05/22/21 00:50 98.9 F 88 22 H 102/46 L 92 L - My Orders Last 24 Hours: My Active Orders 05/22/21 00:18 Blood Culture x2 Reflex Set [OM.PC] Stat 05/22/21 00:40 CULTURE BLOOD [BC] Stat 05/22/21 00:45 CULTURE BLOOD [BC] Stat 05/22/21 01:28 Sodium Chloride 0.9% [Normal Saline] 1,000 ml IV .BOLUS 05/22/21 01:32 Levofloxacin/Dextrose 5%-Water [Levaquin in D5W 750 MG/150 ML] 750 mg Premix Bag 1 bag IV ONETIME 05/22/21 02:05 CULTURE URINE [RM] Routine - Assessment/Plan Last 24 Hours: My Active Orders 05/22/21 00:18 Blood Culture x2 Reflex Set [OM.PC] Stat 05/22/21 00:40 CULTURE BLOOD [BC] Stat 05/22/21 00:45 CULTURE BLOOD [BC] Stat 05/22/21 01:28 Sodium Chloride 0.9% [Normal Saline] 1,000 ml IV .BOLUS 05/22/21 01:32 Levofloxacin/Dextrose 5%-Water [Levaquin in D5W 750 MG/150 ML] 750 mg Premix Bag 1 bag IV ONETIME 05/22/21 02:05 CULTURE URINE [RM] Routine
[2021-05-22] MEDS ORDERED: Sodium Chloride 0.9% 1,000 ML IV SCH (03:00)
--- NOTE | 2021-05-22 03:05 | PCM.HP ---
H&P History of Present Illness - General Date of Service: 05/22/21 Admit Problem/Dx: Admission Diagnosis/Problem Admission Diagnosis/Problem UTI, Urinary tract infectious disease Source of Information: Patient, EMS History Limitations: Reports: Altered Mental Status - History of Present Illness Initial Comments - Free Text/Narative: Patient is a 81-year-old male with a history of MS, urinary retention secondary to MS, suprapubic catheter with recurrent urinary tract infections, type 2 diabetes mellitus not on insulin, hypertension who presents with weakness, fever and was found to have a UTI giving a second. When I talk to patient he was orientated to person, was able to have the year 2020 but thought he was in [facility] and could not tell me the month. Patient could not tell me why he was in the hospital. Attempted to call patient's but was unable to get a hold of her. Per EMS reports patient had been having increased malaise for last 3 to 4 days with increasing fevers over the last 24 to 48 hours per patient's . She brought him in for further evaluation. Patient denies any current abdominal pain, nausea, vomiting. States he does not ever having fevers at home. States that he does have his suprapubic catheter for at least 5 years. States he does gets frequent urinary tract infections and remembers being in the hospital within the last year for this. He does not know his home medications. Patient denies any chest pains or pressures, shortness of breath, back pain. Remainder review systems negative except as listed above. Patient arrived emergency department he was hypotensive blood pressure 105/46, heart rate regular at 80, oxygen saturation 94 to 95% on room air. Laboratory values included a WBC of 22 with most recent being 6, hemoglobin of 10.4, sodium 131, potassium 4.0, creatinine 1.25, AST and ALT within normal notes, troponin XVIII, lipase 168, lactate 1.6, UA concerning for infection with positive n itrates, positive leukocyte esterase, large number of WBCs. Patient was given IV Levaquin given his weakness, elevated white count request was made for admission. - Related Data Allergies/Adverse Reactions: Allergies Allergy/AdvReac Type Severity Reaction Status Date / Time No Known Allergies Allergy Verified 05/22/21 03:09 Home Medications: Home Meds Ascorbic Acid [Vitamin C] 500 mg PO DAILY 05/16/20 [History] Aspirin [Aspirin EC] 81 mg PO DAILY 05/16/20 [History] Baclofen 10 mg PO BID 05/16/20 [History] Calcium Carb, Citrate/Vit D3 [Citracal + D ER] 1 tab PO DAILY 05/16/20 [History] Cyanocobalamin (Vitamin B-12) [Vitamin B12] 2,500 mcg PO DAILY 05/16/20 [History] Folic Acid 0.8 mg PO DAILY 05/16/20 [History] LORazepam [Lorazepam] 0.5 tab PO BEDTIME PRN 05/16/20 [History] Omeprazole 20 mg PO BEDTIME 05/16/20 [History] Pravastatin [Pravachol] 20 mg PO BEDTIME 05/16/20 [History] Vitamin B Complex [B Complex] 1 tab PO DAILY 05/16/20 [History] amLODIPine [Norvasc] 5 mg PO DAILY 05/16/20 [History] metFORMIN [Glucophage XR] 1,000 mg PO BIDMEALS 05/16/20 [History] Sennosides/Docusate Sodium [Senna-Docusate Sodium Tablet] 1 tab PO BID 05/22/21 [History] Past Medical History - Past Health History Medical/Surgical History: Denies Medical/Surgical History HEENT History: Reports: None Cardiovascular History: Reports: High Cholesterol, Hypertension Respiratory History: Reports: None Gastrointestinal History: Reports: Chronic Constipation Genitourinary History: Reports: Neurogenic Bladder, Retention, Urinary, Urinary Incontinence Musculoskeletal History: Reports: Other (See Below) Other Musculoskeletal History: MS Neurological History: Reports: MS Psychiatric History: Reports: None Endocrine/Metabolic History: Reports: Diabetes, Type I Hematologic History: Reports: None Immunologic History: Reports: None Oncologic (Cancer) History: Reports: None - Infectious Disease History Infectious Disease History: Reports: Chicken Pox, Measles, Mumps, Rubella - Past Surgical History Head Surgeries/Procedures: Reports: None Male Surgical History: Reports: Suprapubic Catheter Placement Musculoskeletal Surgical History: Reports: None Dermatological Surgical History: Reports: None Social & Family History - Family History Family Medical History: No Pertinent Family History - Tobacco Use Tobacco Use Status *Q: Former Tobacco User Used Tobacco, but Quit: Yes Month/Year Tobacco Last Used: 06/1961 - Caffeine Use Caffeine Use: Reports: Coffee Caffeine Use Comment: 1 cup coffee daily, then decaf. - Recreational Drug Use Recreational Drug Use: No H&P Review of Systems - Review of Systems: Review Of Systems: Comprehensive ROS is negative, except as noted in HPI. Exam - Exam Exam: See Below - Vital Signs Vital Signs: Last Vital Signs Temp 98.4 F 05/22/21 01:49 Pulse 80 05/22/21 02:00 Resp 16 05/22/21 02:00 BP 105/46 L 05/22/21 02:00 Pulse Ox 94 L 05/22/21 02:00 Weight: 169 lb - Exam General: Alert, Other (Orientated to person, year, not orientated to month and believe you were in [place] and could not tell you why he was in the hospital. Unclear baseline mental status, was unable to go to the patient's ) HEENT: Conjunctiva Clear Neck: Supple Lungs: Clear to Auscultation, Normal Respiratory Effort Cardiovascular: Regular Rate, Regular Rhythm GI/Abdominal Exam: Normal Bowel Sounds, Other (Suprapubic catheter placement, no obvious pus or erythema noted, no significant abdominal pain on palpation) Back Exam: Normal Inspection Extremities: Normal Inspection, Normal Range of Motion Peripheral Pulses: 2+: Radial (L), Radial (R) Skin: Warm Neurological: Cranial Nerves Intact, Normal Tone (Slightly increased tone and decreased strength) Neuro Extensive - Mental Status: Alert Neuro Extensive - Motor, Sensory, Reflexes: CN II-XII Intact Psychiatric: Alert - Patient Data Lab Results Last 24 hrs: Laboratory Results - last 24 hr 05/22/21 05/22/21 05/22/21 Range/Units 00:30 00:45 00:45 WBC 22.2 H (5.0-10.0) 10^3/uL RBC 3.07 L (4.6-6.2) 10^6/uL Hgb 10.4 L (14.0-18.0) g/dL Hct 31.6 L (40.0-54.0) % MCV 102.9 H (80-100) fL MCH 33.9 (27.0-34.0) pg MCHC 32.9 L (33.0-35.0) g/dL Plt Count 165 (150-450) 10^3/uL Neut % (Auto) 85.3 H (42.2-75.2) % Lymph % (Auto) 3.4 L (20.5-50.1) % [place] % (Auto) 11.0 H (2-8) % Eos % (Auto) 0.0 L (1.0-3.0) % Baso % (Auto) 0.3 (0.0-1.0) % PT (9.0-12.0) SEC INR (0.9-1.2) Sodium 131 L (136-145) mmol/L Potassium 4.0 (3.5-5.1) mmol/L Chloride 96 L (98-107) mmol/L Carbon Dioxide 25 (21-32) mmol/L Anion Gap 14.0 H (7-13) mEq/L BUN 20 H (7-18) mg/dL Creatinine 1.25 (0.70-1.30) mg/dL Est Cr Clr Drug Dosing TNP Estimated GFR (MDRD) 56 BUN/Creatinine Ratio 16.0 (No establ ref range) Glucose 176 H (70-99) mg/dL Lactic Acid (0.4-2.0) mmol/L Calcium 8.5 (8.5-10.1) mg/dL Magnesium 1.7 L (1.8-2.4) mg/dL Total Bilirubin 0.5 (0.2-1.0) mg/dL AST 11 L (15-37) U/L ALT 15 L (16-63) U/L Alkaline Phosphatase 64 (46-116) U/L Troponin I High Sens 18 (<=76) pg/mL B-Natriuretic Peptide 92 (0-100) pg/ml Total Protein 6.4 (6.4-8.2) g/dL Albumin 3.3 L (3.4-5.0) g/dL Globulin 3.1 Albumin/Globulin Ratio 1.06 Amylase 54 (25-115) U/L Lipase 168 (73-393) U/L Urine Color (YELLOW) Urine Appearance (CLEAR) Urine pH (5.0-9.0) Ur Specific Martin (1.005-1.030) Urine Protein (NEGATIVE) Urine Glucose (UA) (NEGATIVE) Urine Ketones (NEGATIVE) Urine Occult Blood (NEGATIVE) Urine Nitrite (NEGATIVE) Urine Bilirubin (NEGATIVE) Urine Urobilinogen (0.2-1.0) mg/dL Ur Leukocyte Esterase (NEGATIVE) Urine RBC (0-5) /HPF Urine WBC (0-5/HPF) /HPF Ur Epithelial Cells (NOT SEEN) /HPF Urine Bacteria (0-FEW/HPF) /HPF SARS-CoV-2 RNA (SONIDO) Negative (NEGATIVE) 05/22/21 05/22/21 05/22/21 Range/Units 00:45 00:45 02:05 WBC (5.0-10.0) 10^3/uL RBC (4.6-6.2) 10^6/uL Hgb (14.0-18.0) g/dL Hct (40.0-54.0) % MCV (80-100) fL MCH (27.0-34.0) pg MCHC (33.0-35.0) g/dL Plt Count (150-450) 10^3/uL Neut % (Auto) (42.2-75.2) % Lymph % (Auto) (20.5-50.1) % [place] % (Auto) (2-8) % Eos % (Auto) (1.0-3.0) % Baso % (Auto) (0.0-1.0) % PT 10.4 (9.0-12.0) SEC INR 1.0 (0.9-1.2) Sodium (136-145) mmol/L Potassium (3.5-5.1) mmol/L Chloride (98-107) mmol/L Carbon Dioxide (21-32) mmol/L Anion Gap (7-13) mEq/L BUN (7-18) mg/dL Creatinine (0.70-1.30) mg/dL Est Cr Clr Drug Dosing Estimated GFR (MDRD) BUN/Creatinine Ratio (No establ ref range) Glucose (70-99) mg/dL Lactic Acid 1.6 (0.4-2.0) mmol/L Calcium (8.5-10.1) mg/dL Magnesium (1.8-2.4) mg/dL Total Bilirubin (0.2-1.0) mg/dL AST (15-37) U/L ALT (16-63) U/L Alkaline Phosphatase (46-116) U/L Troponin I High Sens (<=76) pg/mL B-Natriuretic Peptide (0-100) pg/ml Total Protein (6.4-8.2) g/dL Albumin (3.4-5.0) g/dL Globulin Albumin/Globulin Ratio Amylase (25-115) U/L Lipase (73-393) U/L Urine Color Yellow (YELLOW) Urine Appearance Cloudy (CLEAR) Urine pH 5.5 (5.0-9.0) Ur Specific Martin 1.020 (1.005-1.030) Urine Protein 100 H (NEGATIVE) Urine Glucose (UA) Negative (NEGATIVE) Urine Ketones Negative (NEGATIVE) Urine Occult Blood Large H (NEGATIVE) Urine Nitrite Positive H (NEGATIVE) Urine Bilirubin Negative (NEGATIVE) Urine Urobilinogen 0.2 (0.2-1.0) mg/dL Ur Leukocyte Esterase Large H (NEGATIVE) Urine RBC 5-10 H (0-5) /HPF Urine WBC Packed H (0-5/HPF) /HPF Ur Epithelial Cells Occasional (NOT SEEN) /HPF Urine Bacteria Many H (0-FEW/HPF) /HPF SARS-CoV-2 RNA (SONIDO) (NEGATIVE) Result Diagrams: 05/22/21 00:45 05/22/21 00:45 - Problem List (1) Essential hypertension SNOMED Code(s): 10977882 ICD Code: I10 - ESSENTIAL (PRIMARY) HYPERTENSION Status: Acute Current Visit: No (2) History of urinary retention SNOMED Code(s): 683790028 ICD Code: Z87.898 - PERSONAL HISTORY OF OTHER SPECIFIED CONDITIONS Status: Acute Current Visit: No (3) Hx of multiple sclerosis SNOMED Code(s): 945382008 ICD Code: G35 - MULTIPLE SCLEROSIS Status: Acute Current Visit: Yes (4) Hypercholesteremia SNOMED Code(s): 00526559 ICD Code: E78.00 - PURE HYPERCHOLESTEROLEMIA, UNSPECIFIED Status: Acute Current Visit: No (5) Indwelling catheter present on admission SNOMED Code(s): 212666408 ICD Code: Z96.0 - PRESENCE OF UROGENITAL IMPLANTS Status: Acute Current Visit: Yes (6) Type II diabetes mellitus SNOMED Code(s): 57066997 ICD Code: E11.9 - TYPE 2 DIABETES MELLITUS WITHOUT COMPLICATIONS Status: Acute Current Visit: Yes (7) UTI (urinary tract infection) SNOMED Code(s): 98047979 ICD Code: N39.0 - URINARY TRACT INFECTION, SITE NOT SPECIFIED Status: Acute Current Visit: Yes Qualifiers: Urinary tract infection type: catheter-associated UTI Indwelling urinary catheter type: cystostomy catheter Encounter type: initial encounter Qualified Code(s): T83.510A - Infection and inflammatory reaction due to cystostomy catheter, initial encounter; N39.0 - Urinary tract infection, site not specified Problem List Initiated/Reviewed/Updated: Yes Orders Last 24hrs: Active Orders 24 hr Category Date Time Status Admission Diagnosis [ADT] Stat ADT 05/22/21 02:27 Ordered Admission Status [Patient Status] [ADT] Stat ADT 05/22/21 02:27 Active Oxygen Therapy [RC] PRN Care 05/22/21 02:56 Ordered Up With Assistance [RC] ASDIRECTED Care 05/22/21 02:56 Ordered VTE/DVT Education [RC] PER UNIT ROUTINE Care 05/22/21 02:56 Ordered Vital Signs [RC] Q4H Care 05/22/21 02:56 Ordered Consistent Carbohydrate Diet [DIET] Diet 05/22/21 Breakfast Ordered CULTURE BLOOD [BC] Stat Lab 05/22/21 00:40 Received CULTURE BLOOD [BC] Stat Lab 05/22/21 00:45 Received CULTURE URINE [RM] Routine Lab 05/22/21 02:05 Received Acetaminophen [TylenoL] Med 05/22/21 02:56 Ordered 650 mg PO Q4H PRN Enoxaparin [Lovenox] Med 05/22/21 09:00 Ordered 40 mg SUBCUT DAILY Levofloxacin/Dextrose 5%-Water [Levaquin in D5W 750 MG/ Med 05/22/21 01:32 Active 150 ML] 750 mg Premix Bag 1 bag IV ONETIME Levofloxacin/Dextrose 5%-Water [Levaquin in D5W 750 MG/ Med 05/23/21 05:00 Ordered 150 ML] 750 mg Premix Bag 1 bag IV Q24H Sodium Chloride 0.9% @ 75 MLS/HR(1000ml) Med 05/22/21 03:00 Ordered Sodium Chloride 0.9% [Normal Saline] 1,000 ml IV ASDIRECTED Sodium Chloride 0.9% [Normal Saline] 1,000 ml Med 05/22/21 01:28 Active IV .BOLUS Blood Culture x2 Reflex Set [OM.PC] Stat Oth 05/22/21 00:18 Ordered Code Status [Resuscitation Status] Stat Resus Stat 05/22/21 02:39 Ordered Medication Orders Acetaminophen (Acetaminophen 325 Mg Tab) 650 mg PO Q4H PRN PRN Reason: Pain (Mild 1-3)/fever Enoxaparin Sodium (Enoxaparin 40 Mg/0.4 Ml Syringe) 40 mg SUBCUT DAILY [facility] Sodium Chloride (Normal Saline) 1,000 mls @ 200 mls/hr IV .BOLUS ONE Stop: 05/22/21 06:27 Last Admin: 05/22/21 01:38 Dose: 200 mls/hr Documented by: DIERSAM Levofloxacin/Dextrose 750 mg/ (Premix) 150 mls @ 100 mls/hr IV ONETIME ONE Stop: 05/22/21 03:01 Last Admin: 05/22/21 02:06 Dose: 100 mls/hr Documented by: DIERSAM Levofloxacin/Dextrose 750 mg/ (Premix) 150 mls @ 100 mls/hr IV Q24H [facility] Assessment/Plan Comment:: Patient is a 81-year-old male with a history of multiple sclerosis, urinary retention secondary to multiple sclerosis status post chronic suprapubic catheter placement, history of recurrent UTIs, type 2 diabetes not on insulin, hypertension who presents with fevers, chills and was found to have a urinary tract infection. # UTI, complicated -Patient noted to have fevers at home, change in urine color, UA obviously suspicious for infection given suprapubic catheter -Blood cultures in process, patient was given a dose of IV Levaquin in the emergency department -pressures softer this appears chronic not tachycardic, lactic acid normal -Patient has a history of Pseudomonas noted in urine cultures, based on sensitivities I agree with Levaquin 750 mg every 24 hours, likely transition to p.o. after 24 to 48 hours and negative blood cultures for a total of 5 to 7 days of therapy -Recommended changing of suprapubic catheter although nursing staff nathan is not comfortable currently with this, will discuss with nursing staff during a.m. or attempt change once brings in supplies # Multiple sclerosis -Continue baclofen, PT/OT given patient's worsening weakness likely secondary to above # Type 2 diabetes mellitus -Hold Metformin, carb controlled diet twice daily glucose checks #Chronic medical conditions #GERDcontinue omeprazole #Hypertensionhold amlodipine #Hyperlipidemiacontinue simvastatin [id number] mL an hour NS Electrolyteswithin normal limits Dietcarb controlled DVT prophylaxis- Lovenox
--- NOTE | 2021-05-22 06:35 | PCM.PN ---
- General Info Date of Service: 05/22/21 Admission Dx/Problem (Free Text): Admission Diagnosis/Problem Admission Diagnosis/Problem UTI, Urinary tract infectious disease Subjective Update: Patient is alert this a.m. Again believed he was in [place] which was simil ar to the prior night. Was able to tell me the month however today which is improved. Again patient does not recall why he is in the hospital. He denies any fevers or chills overnight, denies any abdominal pain, back pain, nausea, vomiting, diarrhea. Again will discuss with family when they get here if patient is close to baseline mental status. Remainder review systems negative except those listed above. - Patient Data Vitals - Most Recent: Last Vital Signs Temp 98.2 F 05/22/21 03:00 Pulse 82 05/22/21 03:00 Resp 18 05/22/21 03:00 BP 109/50 L 05/22/21 03:00 Pulse Ox 95 05/22/21 03:00 Weight - Most Recent: 167 lb 1.6 oz I&O - Last 24 Hours: Intake & Output 05/21/21 05/21/21 05/22/21 14:59 22:59 06:59 Output Total 1025 Balance -1025 Lab Results Last 24 Hours: Laboratory Results - last 24 hr 05/22/21 05/22/21 05/22/21 Range/Units 00:30 00:45 00:45 WBC 22.2 H (5.0-10.0) 10^3/uL RBC 3.07 L (4.6-6.2) 10^6/uL Hgb 10.4 L (14.0-18.0) g/dL Hct 31.6 L (40.0-54.0) % MCV 102.9 H (80-100) fL MCH 33.9 (27.0-34.0) pg MCHC 32.9 L (33.0-35.0) g/dL Plt Count 165 (150-450) 10^3/uL Neut % (Auto) 85.3 H (42.2-75.2) % Lymph % (Auto) 3.4 L (20.5-50.1) % [place] % (Auto) 11.0 H (2-8) % Eos % (Auto) 0.0 L (1.0-3.0) % Baso % (Auto) 0.3 (0.0-1.0) % PT (9.0-12.0) SEC INR (0.9-1.2) Sodium 131 L (136-145) mmol/L Potassium 4.0 (3.5-5.1) mmol/L Chloride 96 L (98-107) mmol/L Carbon Dioxide 25 (21-32) mmol/L Anion Gap 14.0 H (7-13) mEq/L BUN 20 H (7-18) mg/dL Creatinine 1.25 (0.70-1.30) mg/dL Est Cr Clr Drug Dosing TNP Estimated GFR (MDRD) 56 BUN/Creatinine Ratio 16.0 (No establ ref range) Glucose 176 H (70-99) mg/dL Lactic Acid (0.4-2.0) mmol/L Calcium 8.5 (8.5-10.1) mg/dL Magnesium 1.7 L (1.8-2.4) mg/dL Total Bilirubin 0.5 (0.2-1.0) mg/dL AST 11 L (15-37) U/L ALT 15 L (16-63) U/L Alkaline Phosphatase 64 (46-116) U/L Troponin I High Sens 18 (<=76) pg/mL B-Natriuretic Peptide 92 (0-100) pg/ml Total Protein 6.4 (6.4-8.2) g/dL Albumin 3.3 L (3.4-5.0) g/dL Globulin 3.1 Albumin/Globulin Ratio 1.06 Amylase 54 (25-115) U/L Lipase 168 (73-393) U/L Urine Color (YELLOW) Urine Appearance (CLEAR) Urine pH (5.0-9.0) Ur Specific [place] (1.005-1.030) Urine Protein (NEGATIVE) Urine Glucose (UA) (NEGATIVE) Urine Ketones (NEGATIVE) Urine Occult Blood (NEGATIVE) Urine Nitrite (NEGATIVE) Urine Bilirubin (NEGATIVE) Urine Urobilinogen (0.2-1.0) mg/dL Ur Leukocyte Esterase (NEGATIVE) Urine RBC (0-5) /HPF Urine WBC (0-5/HPF) /HPF Ur Epithelial Cells (NOT SEEN) /HPF Urine Bacteria (0-FEW/HPF) /HPF SARS-CoV-2 RNA ([facility]) Negative (NEGATIVE) 05/22/21 05/22/21 05/22/21 Range/Units 00:45 00:45 02:05 WBC (5.0-10.0) 10^3/uL RBC (4.6-6.2) 10^6/uL Hgb (14.0-18.0) g/dL Hct (40.0-54.0) % MCV (80-100) fL MCH (27.0-34.0) pg MCHC (33.0-35.0) g/dL Plt Count (150-450) 10^3/uL Neut % (Auto) (42.2-75.2) % Lymph % (Auto) (20.5-50.1) % [place] % (Auto) (2-8) % Eos % (Auto) (1.0-3.0) % Baso % (Auto) (0.0-1.0) % PT 10.4 (9.0-12.0) SEC INR 1.0 (0.9-1.2) Sodium (136-145) mmol/L Potassium (3.5-5.1) mmol/L Chloride (98-107) mmol/L Carbon Dioxide (21-32) mmol/L Anion Gap (7-13) mEq/L BUN (7-18) mg/dL Creatinine (0.70-1.30) mg/dL Est Cr Clr Drug Dosing Estimated GFR (MDRD) BUN/Creatinine Ratio (No establ ref range) Glucose (70-99) mg/dL Lactic Acid 1.6 (0.4-2.0) mmol/L Calcium (8.5-10.1) mg/dL Magnesium (1.8-2.4) mg/dL Total Bilirubin (0.2-1.0) mg/dL AST (15-37) U/L ALT (16-63) U/L Alkaline Phosphatase (46-116) U/L Troponin I High Sens (<=76) pg/mL B-Natriuretic Peptide (0-100) pg/ml Total Protein (6.4-8.2) g/dL Albumin (3.4-5.0) g/dL Globulin Albumin/Globulin Ratio Amylase (25-115) U/L Lipase (73-393) U/L Urine Color Yellow (YELLOW) Urine Appearance Cloudy (CLEAR) Urine pH 5.5 (5.0-9.0) Ur Specific [place] 1.020 (1.005-1.030) Urine Protein 100 H (NEGATIVE) Urine Glucose (UA) Negative (NEGATIVE) Urine Ketones Negative (NEGATIVE) Urine Occult Blood Large H (NEGATIVE) Urine Nitrite Positive H (NEGATIVE) Urine Bilirubin Negative (NEGATIVE) Urine Urobilinogen 0.2 (0.2-1.0) mg/dL Ur Leukocyte Esterase Large H (NEGATIVE) Urine RBC 5-10 H (0-5) /HPF Urine WBC Packed H (0-5/HPF) /HPF Ur Epithelial Cells Occasional (NOT SEEN) /HPF Urine Bacteria Many H (0-FEW/HPF) /HPF SARS-CoV-2 RNA ([facility]) (NEGATIVE) Med Orders - Current: Current Medications Acetaminophen (Acetaminophen 325 Mg Tab) 650 mg PO Q4H PRN PRN Reason: Pain (Mild 1-3)/fever Aspirin (Aspirin 81 Mg Tab.Ec) 81 mg PO DAILY [facility] Baclofen (Baclofen 10 Mg Tab) 10 mg PO BID [facility] Enoxaparin Sodium (Enoxaparin 40 Mg/0.4 Ml Syringe) 40 mg SUBCUT DAILY [facility] Levofloxacin/Dextrose 750 mg/ (Premix) 150 mls @ 100 mls/hr IV Q24H [facility] Sodium Chloride (Normal Saline) 1,000 mls @ 75 mls/hr IV ASDIRECTED [facility] Magnesium Sulfate 2 gm/ Premix 50 mls @ 25 mls/hr IV ONETIME ONE Stop: 05/22/21 09:59 Omeprazole (Omeprazole 20 Mg Cap.Cr) 20 mg PO BEDTIME [facility] Pravastatin Sodium (Pravastatin 20 Mg Tab) 20 mg PO BEDTIME [facility] Senna/Docusate Sodium (Docusate Sodium/Sennosides 50-8.6 Mg Tab) 1 tab PO BID [facility] Discontinued Medications Sodium Chloride (Normal Saline) 1,000 mls @ 200 mls/hr IV .BOLUS ONE Stop: 05/22/21 06:27 Last Admin: 05/22/21 01:38 Dose: 200 mls/hr Documented by: Levofloxacin/Dextrose 750 mg/ (Premix) 150 mls @ 100 mls/hr IV ONETIME ONE Stop: 05/22/21 03:01 Last Admin: 05/22/21 02:06 Dose: 100 mls/hr Documented by: - Exam General: Alert HEENT: Pupils Equal Neck: Supple Lungs: Clear to Auscultation, Normal Respiratory Effort Cardiovascular: Regular Rate, Regular Rhythm GI/Abdominal Exam: Normal Bowel Sounds, Soft, Non-Tender, Other (suprapubic catheter - no erythema ) Back Exam: Normal Inspection Extremities: Normal Inspection Peripheral Pulses: 2+: Radial (L), Radial (R) Skin: Warm, Dry Neurological: No New Focal Deficit Psy/Mental Status: Alert - Patient Data Lab Results Last 24 hrs: Laboratory Results - last 24 hr 05/22/21 05/22/21 05/22/21 Range/Units 00:30 00:45 00:45 WBC 22.2 H (5.0-10.0) 10^3/uL RBC 3.07 L (4.6-6.2) 10^6/uL Hgb 10.4 L (14.0-18.0) g/dL Hct 31.6 L (40.0-54.0) % MCV 102.9 H (80-100) fL MCH 33.9 (27.0-34.0) pg MCHC 32.9 L (33.0-35.0) g/dL Plt Count 165 (150-450) 10^3/uL Neut % (Auto) 85.3 H (42.2-75.2) % Lymph % (Auto) 3.4 L (20.5-50.1) % [place] % (Auto) 11.0 H (2-8) % Eos % (Auto) 0.0 L (1.0-3.0) % Baso % (Auto) 0.3 (0.0-1.0) % PT (9.0-12.0) SEC INR (0.9-1.2) Sodium 131 L (136-145) mmol/L Potassium 4.0 (3.5-5.1) mmol/L Chloride 96 L (98-107) mmol/L Carbon Dioxide 25 (21-32) mmol/L Anion Gap 14.0 H (7-13) mEq/L BUN 20 H (7-18) mg/dL Creatinine 1.25 (0.70-1.30) mg/dL Est Cr Clr Drug Dosing TNP Estimated GFR (MDRD) 56 BUN/Creatinine Ratio 16.0 (No establ ref range) Glucose 176 H (70-99) mg/dL Lactic Acid (0.4-2.0) mmol/L Calcium 8.5 (8.5-10.1) mg/dL Magnesium 1.7 L (1.8-2.4) mg/dL Total Bilirubin 0.5 (0.2-1.0) mg/dL AST 11 L (15-37) U/L ALT 15 L (16-63) U/L Alkaline Phosphatase 64 (46-116) U/L Troponin I High Sens 18 (<=76) pg/mL B-Natriuretic Peptide 92 (0-100) pg/ml Total Protein 6.4 (6.4-8.2) g/dL Albumin 3.3 L (3.4-5.0) g/dL Globulin 3.1 Albumin/Globulin Ratio 1.06 Amylase 54 (25-115) U/L Lipase 168 (73-393) U/L Urine Color (YELLOW) Urine Appearance (CLEAR) Urine pH (5.0-9.0) Ur Specific [place] (1.005-1.030) Urine Protein (NEGATIVE) Urine Glucose (UA) (NEGATIVE) Urine Ketones (NEGATIVE) Urine Occult Blood (NEGATIVE) Urine Nitrite (NEGATIVE) Urine Bilirubin (NEGATIVE) Urine Urobilinogen (0.2-1.0) mg/dL Ur Leukocyte Esterase (NEGATIVE) Urine RBC (0-5) /HPF Urine WBC (0-5/HPF) /HPF Ur Epithelial Cells (NOT SEEN) /HPF Urine Bacteria (0-FEW/HPF) /HPF SARS-CoV-2 RNA ([place]) Negative (NEGATIVE) 05/22/21 05/22/21 05/22/21 Range/Units 00:45 00:45 02:05 WBC (5.0-10.0) 10^3/uL RBC (4.6-6.2) 10^6/uL Hgb (14.0-18.0) g/dL Hct (40.0-54.0) % MCV (80-100) fL MCH (27.0-34.0) pg MCHC (33.0-35.0) g/dL Plt Count (150-450) 10^3/uL Neut % (Auto) (42.2-75.2) % Lymph % (Auto) (20.5-50.1) % [place] % (Auto) (2-8) % Eos % (Auto) (1.0-3.0) % Baso % (Auto) (0.0-1.0) % PT 10.4 (9.0-12.0) SEC INR 1.0 (0.9-1.2) Sodium (136-145) mmol/L Potassium (3.5-5.1) mmol/L Chloride (98-107) mmol/L Carbon Dioxide (21-32) mmol/L Anion Gap (7-13) mEq/L BUN (7-18) mg/dL Creatinine (0.70-1.30) mg/dL Est Cr Clr Drug Dosing Estimated GFR (MDRD) BUN/Creatinine Ratio (No establ ref range) Glucose (70-99) mg/dL Lactic Acid 1.6 (0.4-2.0) mmol/L Calcium (8.5-10.1) mg/dL Magnesium (1.8-2.4) mg/dL Total Bilirubin (0.2-1.0) mg/dL AST (15-37) U/L ALT (16-63) U/L Alkaline Phosphatase (46-116) U/L Troponin I High Sens (<=76) pg/mL B-Natriuretic Peptide (0-100) pg/ml Total Protein (6.4-8.2) g/dL Albumin (3.4-5.0) g/dL Globulin Albumin/Globulin Ratio Amylase (25-115) U/L Lipase (73-393) U/L Urine Color Yellow (YELLOW) Urine Appearance Cloudy (CLEAR) Urine pH 5.5 (5.0-9.0) Ur Specific [place] 1.020 (1.005-1.030) Urine Protein 100 H (NEGATIVE) Urine Glucose (UA) Negative (NEGATIVE) Urine Ketones Negative (NEGATIVE) Urine Occult Blood Large H (NEGATIVE) Urine Nitrite Positive H (NEGATIVE) Urine Bilirubin Negative (NEGATIVE) Urine Urobilinogen 0.2 (0.2-1.0) mg/dL Ur Leukocyte Esterase Large H (NEGATIVE) Urine RBC 5-10 H (0-5) /HPF Urine WBC Packed H (0-5/HPF) /HPF Ur Epithelial Cells Occasional (NOT SEEN) /HPF Urine Bacteria Many H (0-FEW/HPF) /HPF SARS-CoV-2 RNA ([facility]) (NEGATIVE) Result Diagrams: 05/22/21 00:45 05/22/21 00:45 Sepsis Event Note - Evaluation Sepsis Screening Result: No Definite Risk - Focused Exam Vital Signs: Vital Signs Temp Pulse Resp BP Pulse Ox 05/22/21 03:00 98.2 F 82 18 109/50 L 95 05/22/21 02:00 80 16 105/46 L 94 L 05/22/21 01:49 98.4 F 05/22/21 01:15 82 19 107/47 L 93 L 05/22/21 01:01 86 20 105/48 L 93 L 05/22/21 00:50 98.9 F 88 22 H 102/46 L 92 L - Problem List & Annotations (1) Essential hypertension SNOMED Code(s): 03360235 Code(s): I10 - ESSENTIAL (PRIMARY) HYPERTENSION Status: Acute Current Visit: No (2) History of urinary retention SNOMED Code(s): 616005803 Code(s): Z87.898 - PERSONAL HISTORY OF OTHER SPECIFIED CONDITIONS Status: Acute Current Visit: No (3) Hx of multiple sclerosis SNOMED Code(s): 983969321 Code(s): G35 - MULTIPLE SCLEROSIS Status: Acute Current Visit: Yes (4) Hypercholesteremia SNOMED Code(s): 82469634 Code(s): E78.00 - PURE HYPERCHOLESTEROLEMIA, UNSPECIFIED Status: Acute Current Visit: No (5) Indwelling catheter present on admission SNOMED Code(s): 620718267 Code(s): Z96.0 - PRESENCE OF UROGENITAL IMPLANTS Status: Acute Current Visit: Yes (6) Type II diabetes mellitus SNOMED Code(s): 93477402 Code(s): E11.9 - TYPE 2 DIABETES MELLITUS WITHOUT COMPLICATIONS Status: Acute Current Visit: Yes (7) UTI (urinary tract infection) SNOMED Code(s): 09669128 Code(s): N39.0 - URINARY TRACT INFECTION, SITE NOT SPECIFIED Status: Acute Current Visit: Yes Qualifiers: Urinary tract infection type: catheter-associated UTI Indwelling urinary catheter type: cystostomy catheter Encounter type: initial encounter Qualified Code(s): T83.510A - Infection and inflammatory reaction due to cystostomy catheter, initial encounter; N39.0 - Urinary tract infection, site not specified - Problem List Review Problem List Initiated/Reviewed/Updated: Yes - My Orders Last 24 Hours: My Active Orders 05/22/21 02:56 Oxygen Therapy [RC] PRN Up With Assistance [RC] ASDIRECTED VTE/DVT Education [RC] 10 Vital Signs [RC] Q4H Acetaminophen [TylenoL] 650 mg PO Q4H PRN 05/22/21 03:00 Sodium Chloride 0.9% [Normal Saline] 1,000 ml IV ASDIRECTED 05/22/21 03:19 POC Glucose [Blood Glucose Check, Bedside] [RC] BIDMEALS 05/22/21 03:29 Consult to Occupational Therapy [OT Evaluation and Treatment] [CONS] Routine PT Evaluation and Treatment [CONS] Routine 05/22/21 Breakfast Consistent Carbohydrate Diet [DIET] 05/22/21 08:00 Magnesium Sulfate/Water [Magnesium Sulfate in Water 2 GM/50 ML] 2 gm Premix Bag 1 bag IV ONETIME 05/22/21 09:00 Aspirin [Halfprin] 81 mg PO DAILY Baclofen [Lioresal] 10 mg PO BID Docusate Sodium/Sennosides [Senna Plus] 1 tab PO BID Enoxaparin [Lovenox] 40 mg SUBCUT DAILY 05/22/21 21:00 Omeprazole 20 mg PO BEDTIME Pravastatin [Pravachol] 20 mg PO BEDTIME 05/23/21 05:00 Levofloxacin/Dextrose 5%-Water [Levaquin in D5W 750 MG/150 ML] 750 mg Premix Bag 1 bag IV Q24H - Plan Plan:: Patient is a 81-year-old male with a history of multiple sclerosis, urinary retention secondary to multiple sclerosis status post chronic suprapubic catheter placement, history of recurrent UTIs, type 2 diabetes not on insulin, hypertension who presents with fevers, chills and was found to have a urinary tract infection. # UTI, complicated -Patient noted to have fevers at home, change in urine color, UA obviously suspicious for infection given suprapubic catheter -Blood cultures in process, patient was given a dose of IV Levaquin in the emergency department -lactic acid normal on admission -Patient has a history of Pseudomonas noted in urine cultures, based on sensitivities I agree with Levaquin 750 mg every 24 hours, likely transition to p.o. after 24 to 48 hours and negative blood cultures for a total of 5 to 7 days of therapy -Recommended changing of suprapubic catheter -currently nursing staff is working with insurance to get supplies # Multiple sclerosis -Continue baclofen, PT/OT given patient's worsening weakness likely secondary to above # Type 2 diabetes mellitus -Hold Metformin, carb controlled diet twice daily glucose checks #Chronic medical conditions #GERDcontinue omeprazole #Hypertensionhold amlodipine #Hyperlipidemiacontinue simvastatin [id number] mL an hour NS - will d/c if good oral intake Electrolyteswithin normal limits Dietcarb controlled DVT prophylaxis- Lovenox
[2021-05-22] MEDS ORDERED: Magnesium Sulfate/Water 2 GM in Premix Bag 1 BAG IV ONE (08:00)
[2021-05-22] MEDS: Acetaminophen 325 MG Tab PO PRN ×2 (08:23→16:13)
[2021-05-22] MEDS: Enoxaparin 40 MG/0.4 ML Syringe SUBCUT SCH (09:14)
[2021-05-22] MEDS: Aspirin 81 MG Tab.EC PO SCH (09:14)
[2021-05-22] MEDS: Baclofen 10 MG Tab PO SCH ×2 (09:14→21:30)
[2021-05-22] MEDS: Omeprazole 20 MG Cap.CR PO SCH (22:47)
[2021-05-22] MEDS: Pravastatin 20 MG Tab PO SCH (22:47)
[2021-05-23] MEDS: Acetaminophen 325 MG Tab PO PRN (00:22)
[2021-05-23] MEDS: Levofloxacin/Dextrose 5%-Water 150 ML IV ONE ×2 (04:37→05:32)
--- NOTE | 2021-05-23 05:12 | PCM.PN ---
- General Info Date of Service: 05/23/21 Admission Dx/Problem (Free Text): Admission Diagnosis/Problem Admission Diagnosis/Problem UTI, Urinary tract infectious disease Subjective Update: Patient is alert this a.m. patient is more oriented this a.m. and knows that he is in [place]. States that he was able to remember he was here for an infection. . Again patient does not recall why he is in the hospital. He denies any fevers or chills overnight, denies any abdominal pain, back pain, nausea, vomiting, diarrhea. Remainder review systems negative except those listed above. - Patient Data Vitals - Most Recent: Last Vital Signs Temp 98.2 F 05/23/21 00:52 Pulse 101 H 05/23/21 00:00 Resp 18 05/23/21 00:00 BP 110/58 L 05/23/21 00:00 Pulse Ox 96 05/23/21 00:00 Weight - Most Recent: 167 lb 1.6 oz I&O - Last 24 Hours: Intake & Output 05/22/21 05/22/21 05/23/21 14:59 22:59 06:59 Intake Total 50 Output Total 700 25 Balance -650 -25 Lab Results Last 24 Hours: Laboratory Results - last 24 hr 05/22/21 Range/Units 07:57 POC Glucose 124 H (70-99) mg/dL [facility] Results Last 24 Hours: Microbiology 05/22/21 00:40 Aerobic Blood Culture - Preliminary Blood - Arm, Right NO GROWTH AFTER 1 DAY Anaerobic Blood Culture - Preliminary NO GROWTH AFTER 1 DAY 05/22/21 00:45 Aerobic Blood Culture - Preliminary Blood - Arm, Left NO GROWTH AFTER 1 DAY Anaerobic Blood Culture - Preliminary NO GROWTH AFTER 1 DAY Med Orders - Current: Current Medications Acetaminophen (Acetaminophen 325 Mg Tab) 650 mg PO Q4H PRN PRN Reason: Pain (Mild 1-3)/fever Last Admin: 05/23/21 00:22 Dose: 650 mg Documented by: Aspirin (Aspirin 81 Mg Tab.Ec) 81 mg PO DAILY [facility] Last Admin: 05/22/21 09:14 Dose: 81 mg Documented by: Baclofen (Baclofen 10 Mg Tab) 10 mg PO BID [facility] Last Admin: 05/22/21 21:30 Dose: 10 mg Documented by: Enoxaparin Sodium (Enoxaparin 40 Mg/0.4 Ml Syringe) 40 mg SUBCUT DAILY [facility] Last Admin: 05/22/21 09:14 Dose: 40 mg Documented by: Levofloxacin/Dextrose 750 mg/ (Premix) 150 mls @ 100 mls/hr IV Q24H [facility] Last Admin: 05/23/21 04:39 Dose: 100 mls/hr Documented by: Omeprazole (Omeprazole 20 Mg Cap.Cr) 20 mg PO BEDTIME [facility] Last Admin: 05/22/21 22:47 Dose: 20 mg Documented by: Pravastatin Sodium (Pravastatin 20 Mg Tab) 20 mg PO BEDTIME [facility] Last Admin: 05/22/21 22:47 Dose: 20 mg Documented by: Senna/Docusate Sodium (Docusate Sodium/Sennosides 50-8.6 Mg Tab) 1 tab PO BID [facility] Last Admin: 05/22/21 22:47 Dose: 1 tab Documented by: Discontinued Medications Sodium Chloride (Normal Saline) 1,000 mls @ 200 mls/hr IV .BOLUS ONE Stop: 05/22/21 06:27 Last Admin: 05/22/21 01:38 Dose: 200 mls/hr Documented by: Levofloxacin/Dextrose 750 mg/ (Premix) 150 mls @ 100 mls/hr IV ONETIME ONE Stop: 05/22/21 03:01 Last Admin: 05/22/21 02:06 Dose: 100 mls/hr Documented by: Sodium Chloride (Normal Saline) 1,000 mls @ 75 mls/hr IV ASDIRECTED [facility] Stop: 05/22/21 14:00 Magnesium Sulfate 2 gm/ Premix 50 mls @ 25 mls/hr IV ONETIME ONE Stop: 05/22/21 09:59 Last Admin: 05/22/21 08:24 Dose: 25 mls/hr Documented by: Levofloxacin/Dextrose (Levaquin In D5w 750 Mg/150 Ml) Confirm Administered Dose 150 mls @ as directed IV .STK-MED ONE Stop: 05/23/21 04:30 Last Admin: 05/23/21 04:37 Dose: 100 mls/hr Documented by: - Exam Urinary Catheter Total Time: 0Days 10Hours General: Alert, No Acute Distress HEENT: Pupils Equal, Pupils Reactive Neck: Supple Lungs: Clear to Auscultation, Normal Respiratory Effort Cardiovascular: Regular Rate, Regular Rhythm GI/Abdominal Exam: Normal Bowel Sounds, Soft, Non-Tender, Other (suprapubic catheter - no erythema or pain on palpation ) Back Exam: Normal Inspection Extremities: Normal Inspection Peripheral Pulses: 2+: Radial (L), Radial (R) Skin: Warm Neurological: No New Focal Deficit Psy/Mental Status: Alert - Patient Data Lab Results Last 24 hrs: Laboratory Results - last 24 hr 05/22/21 Range/Units 07:57 POC Glucose 124 H (70-99) mg/dL Result Diagrams: 05/23/21 05:15 05/23/21 05:15 Adam Results Last 24 hrs: Microbiology 05/22/21 00:40 Aerobic Blood Culture - Preliminary Blood - Arm, Right NO GROWTH AFTER 1 DAY Anaerobic Blood Culture - Preliminary NO GROWTH AFTER 1 DAY 05/22/21 00:45 Aerobic Blood Culture - Preliminary Blood - Arm, Left NO GROWTH AFTER 1 DAY Anaerobic Blood Culture - Preliminary NO GROWTH AFTER 1 DAY Sepsis Event Note - Evaluation Sepsis Screening Result: No Definite Risk - Focused Exam Vital Signs: Vital Signs Temp Temp Pulse Resp BP BP Pulse Ox 05/23/21 00:52 98.2 F 05/23/21 00:22 102.4 F H 05/23/21 00:00 102.6 F H 101 H 18 110/58 L 96 05/22/21 20:32 100.5 F 86 20 117/51 L 96 - Problem List & Annotations (1) Essential hypertension SNOMED Code(s): 68096521 Code(s): I10 - ESSENTIAL (PRIMARY) HYPERTENSION Status: Acute Current Visit: No (2) History of urinary retention SNOMED Code(s): 496016237 Code(s): Z87.898 - PERSONAL HISTORY OF OTHER SPECIFIED CONDITIONS Status: Acute Current Visit: No (3) Hx of multiple sclerosis SNOMED Code(s): 864017086 Code(s): G35 - MULTIPLE SCLEROSIS Status: Acute Current Visit: Yes (4) Hypercholesteremia SNOMED Code(s): 52698257 Code(s): E78.00 - PURE HYPERCHOLESTEROLEMIA, UNSPECIFIED Status: Acute Current Visit: No (5) Indwelling catheter present on admission SNOMED Code(s): 363288720 Code(s): Z96.0 - PRESENCE OF UROGENITAL IMPLANTS Status: Acute Current Visit: Yes (6) Type II diabetes mellitus SNOMED Code(s): 46751553 Code(s): E11.9 - TYPE 2 DIABETES MELLITUS WITHOUT COMPLICATIONS Status: Acute Current Visit: Yes (7) UTI (urinary tract infection) SNOMED Code(s): 21511849 Code(s): N39.0 - URINARY TRACT INFECTION, SITE NOT SPECIFIED Status: Acute Current Visit: Yes Qualifiers: Urinary tract infection type: catheter-associated UTI Indwelling urinary catheter type: cystostomy catheter Encounter type: initial encounter Qualified Code(s): T83.510A - Infection and inflammatory reaction due to cystostomy catheter, initial encounter; N39.0 - Urinary tract infection, site not specified - Problem List Review Problem List Initiated/Reviewed/Updated: Yes - My Orders Last 24 Hours: My Active Orders 05/22/21 Breakfast Consistent Carbohydrate Diet [DIET] 05/22/21 09:00 Aspirin [Halfprin] 81 mg PO DAILY Baclofen [Lioresal] 10 mg PO BID Docusate Sodium/Sennosides [Senna Plus] 1 tab PO BID Enoxaparin [Lovenox] 40 mg SUBCUT DAILY 05/22/21 21:00 Omeprazole 20 mg PO BEDTIME Pravastatin [Pravachol] 20 mg PO BEDTIME 05/23/21 05:00 Levofloxacin/Dextrose 5%-Water [Levaquin in D5W 750 MG/150 ML] 750 mg Premix Bag 1 bag IV Q24H 05/23/21 05:11 BASIC METABOLIC PANEL,BMP [CHEM] AM WHITE BLOOD CELL COUNT,WBC [HEME] DAILY - Plan Plan:: Patient is a 81-year-old male with a history of multiple sclerosis, urinary retention secondary to multiple sclerosis status post chronic suprapubic catheter placement, history of recurrent UTIs, type 2 diabetes not on insulin, hypertension who presents with fevers, chills and was found to have a urinary tract infection. # UTI, complicated -Patient noted to have fevers at home, change in urine color, UA obviously suspicious for infection given suprapubic catheter -Febrile overnight 05/22/21 -Blood cultures negative for growth at 24 hours, urine cultures growing 100,000 colonies gram negative rods -Patient was given a dose of IV Levaquin in the emergency department -lactic acid normal on admission -Patient has a history of Pseudomonas noted in urine cultures, based on urine culture sensitivities I agree with Levaquin 750 mg every 24 hours, likely transition to p.o. after 24 to 48 hours and negative blood cultures for a total of 5 to 7 days of therapy -Suprapubic catheter changed 05/22/21 # Multiple sclerosis -Continue baclofen, PT/OT given patient's worsening weakness likely secondary to above # Type 2 diabetes mellitus -Hold Metformin, carb controlled diet twice daily glucose checks #Chronic medical conditions #GERDcontinue omeprazole #Hypertensionhold amlodipine #Hyperlipidemiacontinue simvastatin Fluidsnone Electrolyteswithin normal limits Dietcarb controlled DVT prophylaxis- Lovenox
[2021-05-23] MEDS: Levofloxacin/Dextrose 5%-Water 750 MG in Premix Bag 1 BAG IV SCH (05:15)
[2021-05-23 06:51] LABS: ANION GAP 14.6 mEq/L (7-13); CHLORIDE,CL 103 mmol/L (98-107); SODIUM,NA 140 mmol/L (136-145)
[2021-05-23] MEDS: Baclofen 10 MG Tab PO SCH ×2 (08:36→20:48)
[2021-05-23] MEDS: Aspirin 81 MG Tab.EC PO SCH (08:36)
[2021-05-23] MEDS: Enoxaparin 40 MG/0.4 ML Syringe SUBCUT SCH (08:36)
[2021-05-23] MEDS: Pravastatin 20 MG Tab PO SCH (20:47)
[2021-05-23] MEDS: Omeprazole 20 MG Cap.CR PO SCH (20:48)
[2021-05-24] MEDS: Levofloxacin/Dextrose 5%-Water 750 MG in Premix Bag 1 BAG IV SCH (05:00)
[2021-05-24] MEDS: Enoxaparin 40 MG/0.4 ML Syringe SUBCUT SCH (08:27)
[2021-05-24] MEDS: Aspirin 81 MG Tab.EC PO SCH (08:27)
[2021-05-24] MEDS: Baclofen 10 MG Tab PO SCH (08:27)
--- NOTE | 2021-05-24 12:16 | PCM.DCSUM1 ---
Discharge Summary - Hospital Course Free Text/Narrative:: Patient is a 81-year-old male with a history of multiple sclerosis, urinary retention secondary to multiple sclerosis status post chronic suprapubic catheter placement, history of recurrent UTIs, type 2 diabetes not on insulin, hypertension who presented with fevers, chills and was found to have a urinary tract infection. # UTI, complicated with chronic indwelling suprapubic catheter -Patient noted to have fevers at home, change in urine color -Febrile overnight 05/22/21 -Blood cultures negative for growth , urine cultures growing pseudomonas - sens to cipro, levo -Patient was given a dose of IV Levaquin in the emergency department -lactic acid normal on admission treat with ciprofloxacin -Suprapubic catheter changed 05/22/21 f/up with urology in 4 weeks # Multiple sclerosis -Continue baclofen, PT/OT will refer the patient to home care custodial for evaluation of sign and symptoms of recurrent infection, catheter care pt for strengthening ot for home safety eval and improving ADLs # Type 2 diabetes mellitus -resume Metformin, #Chronic medical conditions #GERDcontinue omeprazole #Hypertension - Bp was on the lower sidehold amlodipine #Hyperlipidemiacontinue simvastatin Diagnosis: Stroke: No - Discharge Data Discharge Date: 05/24/21 Discharge Disposition: Home, Self-Care 01 Condition: Stable - Referral to Home Health Date of Face to Face Encounter: 05/24/21 Reason for Homebound Status: weakness, ambulating with walker and one person assist Primary Care Physician: PCP None - Patient Summary/Data Consults: Consultations 05/22/21 03:29 Consult to Occupational Therapy [OT Evaluation and Treatment] [CONS] Routine PT Evaluation and Treatment [CONS] Routine - Patient Instructions Diet: Heart Healthy Diet Activity: As Tolerated - Discharge Plan *PRESCRIPTION DRUG MONITORING PROGRAM REVIEWED*: No *COPY OF PRESCRIPTION DRUG MONITORING REPORT IN PATIENT SASCHA: No Prescriptions/Med Rec: Ciprofloxacin [Ciprofloxacin HCl] 500 mg PO BID #20 tab Home Medications: Home Meds Ascorbic Acid [Vitamin C] 500 mg PO DAILY 05/16/20 [History] Aspirin [Aspirin EC] 81 mg PO DAILY 05/16/20 [History] Baclofen 10 mg PO BID 05/16/20 [History] Calcium Carb, Citrate/Vit D3 [Citracal + D ER] 1 tab PO DAILY 05/16/20 [History] Cyanocobalamin (Vitamin B-12) [Vitamin B12] 2,500 mcg PO DAILY 05/16/20 [History] Folic Acid 0.8 mg PO DAILY 05/16/20 [History] LORazepam [Lorazepam] 0.5 tab PO BEDTIME PRN 05/16/20 [History] Omeprazole 20 mg PO BEDTIME 05/16/20 [History] Pravastatin [Pravachol] 20 mg PO BEDTIME 05/16/20 [History] Vitamin B Complex [B Complex] 1 tab PO DAILY 05/16/20 [History] metFORMIN [Glucophage XR] 1,000 mg PO BIDMEALS 05/16/20 [History] Sennosides/Docusate Sodium [Senna-Docusate Sodium Tablet] 1 tab PO BID 05/22/21 [History] Ciprofloxacin [Ciprofloxacin HCl] 500 mg PO BID #20 tab 05/24/21 [Rx] Oxygen Therapy Mode: Room Air Forms: ED Department Discharge Referrals: Vandana Robertson NP [Ordering Only Provider] - - Discharge Summary/Plan Comment DC Time >30 min.: Yes (referral to home care, d/w ) Total # of Minutes for Discharge Time: 35 min - General Info Date of Service: 05/24/21 - Review of Systems General: Reports: Weakness. Denies: Fever Pulmonary: Denies: Shortness of Breath Cardiovascular: Denies: Chest Pain, Edema Genitourinary: Denies: Hematuria - Patient Data Vitals - Most Recent: Last Vital Signs Temp 97.4 F 05/24/21 11:56 Pulse 66 05/24/21 11:56 Resp 18 05/24/21 11:56 BP 106/47 L 05/24/21 11:56 Pulse Ox 97 05/24/21 11:56 Weight - Most Recent: 167 lb 1.6 oz I&O - Last 24 hours: Intake & Output 05/23/21 05/24/21 05/24/21 22:59 06:59 14:59 Intake Total 250 Output Total 500 750 Balance -500 -750 250 Lab Results - Last 24 hrs: Laboratory Results - last 24 hr 05/23/21 05/24/21 05/24/21 Range/Units 16:56 07:00 11:23 POC Glucose 103 H 130 H 174 H (70-99) mg/dL GHANSHAYM Results - Last 24 hrs: Microbiology 05/22/21 02:05 Urine Culture - Final Urine, Suprapubic Bladder Asp Pseudomonas Aeruginosa 05/22/21 00:40 Aerobic Blood Culture - Preliminary Blood - Arm, Right NO GROWTH AFTER 2 DAYS Anaerobic Blood Culture - Preliminary NO GROWTH AFTER 2 DAYS 05/22/21 00:45 Aerobic Blood Culture - Preliminary Blood - Arm, Left NO GROWTH AFTER 2 DAYS Anaerobic Blood Culture - Preliminary NO GROWTH AFTER 2 DAYS Med Orders - Current: Current Medications Acetaminophen (Acetaminophen 325 Mg Tab) 650 mg PO Q4H PRN PRN Reason: Pain (Mild 1-3)/fever Last Admin: 05/23/21 00:22 Dose: 650 mg Documented by: Aspirin (Aspirin 81 Mg Tab.Ec) 81 mg PO DAILY [facility] Last Admin: 05/24/21 08:27 Dose: 81 mg Documented by: Baclofen (Baclofen 10 Mg Tab) 10 mg PO BID [facility] Last Admin: 05/24/21 08:27 Dose: 10 mg Documented by: Enoxaparin Sodium (Enoxaparin 40 Mg/0.4 Ml Syringe) 40 mg SUBCUT DAILY [facility] Last Admin: 05/24/21 08:27 Dose: 40 mg Documented by: Levofloxacin/Dextrose 750 mg/ (Premix) 150 mls @ 100 mls/hr IV Q24H [facility] Last Admin: 05/24/21 05:00 Dose: 100 mls/hr Documented by: Omeprazole (Omeprazole 20 Mg Cap.Cr) 20 mg PO BEDTIME [facility] Last Admin: 05/23/21 20:48 Dose: 20 mg Documented by: Pravastatin Sodium (Pravastatin 20 Mg Tab) 20 mg PO BEDTIME [facility] Last Admin: 05/23/21 20:47 Dose: 20 mg Documented by: Senna/Docusate Sodium (Docusate Sodium/Sennosides 50-8.6 Mg Tab) 1 tab PO BID [facility] Last Admin: 05/24/21 08:27 Dose: 1 tab Documented by: Discontinued Medications Sodium Chloride (Normal Saline) 1,000 mls @ 200 mls/hr IV .BOLUS ONE Stop: 05/22/21 06:27 Last Admin: 05/22/21 01:38 Dose: 200 mls/hr Documented by: Levofloxacin/Dextrose 750 mg/ (Premix) 150 mls @ 100 mls/hr IV ONETIME ONE Stop: 05/22/21 03:01 Last Admin: 05/22/21 02:06 Dose: 100 mls/hr Documented by: Sodium Chloride (Normal Saline) 1,000 mls @ 75 mls/hr IV ASDIRECTED SOREN Stop: 05/22/21 14:00 Magnesium Sulfate 2 gm/ Premix 50 mls @ 25 mls/hr IV ONETIME ONE Stop: 05/22/21 09:59 Last Admin: 05/22/21 08:24 Dose: 25 mls/hr Documented by: Levofloxacin/Dextrose (Levaquin In D5w 750 Mg/150 Ml) Confirm Administered Dose 150 mls @ as directed IV .STK-MED ONE Stop: 05/23/21 04:30 Last Admin: 05/23/21 05:32 Dose: Not Given Documented by: - Exam General: Reports: Alert, Oriented Neck: Reports: Supple Lungs: Reports: Clear to Auscultation, Normal Respiratory Effort Cardiovascular: Reports: Regular Rate, Regular Rhythm GI/Abdominal Exam: Normal Bowel Sounds, Soft, Non-Tender Skin: Reports: Warm, Dry Neurological: Reports: No New Focal Deficit
== END 2021-05-24 13:00 | disposition home or self-care (01) | DRG 699 ==
LOC: DL.ED 00:12 → DL.MS 02:27 → DL.ED 02:50
PROVIDERS: ADMIT Internal Medicine; ATTEND Internal Medicine
DX: T83.510A Infection and inflammatory reaction due to cystostomy catheter, initial encounter (principal); N39.0 Urinary tract infection, site not specified; E83.42 Hypomagnesemia; Z93.6 Other artificial openings of urinary tract status; G35 Multiple sclerosis; R33.9 Retention of urine, unspecified; E11.9 Type 2 diabetes mellitus without complications; I10 Essential (primary) hypertension; K21.9 Gastro-esophageal reflux disease without esophagitis; E78.5 Hyperlipidemia, unspecified; E10.8 Type 1 diabetes mellitus with unspecified complications; Z20.822 Contact with and (suspected) exposure to COVID-19; E78.00 Pure hypercholesterolemia, unspecified; K59.09 Other constipation; N31.9 Neuromuscular dysfunction of bladder, unspecified; R32 Unspecified urinary incontinence; Z86.19 Personal history of other infectious and parasitic diseases; Z87.891 Personal history of nicotine dependence; Z87.440 Personal history of urinary (tract) infections; Z79.84 Long term (current) use of oral hypoglycemic drugs; Z79.899 Other long term (current) drug therapy; Z79.82 Long term (current) use of aspirin
CPT/HCPCS: 36415; 71045; 80053; 81001; 82150; 83605; 83690; 83735; 83880; 84484; 85025; 85610; 87040 ×2; 87086; 87088; 87186; 93005; J1956; J7030; U0002; 80048; 82947; 85048; 97116-GP; 97161-GP; 97165-GO; 97530-GO; 97535-GO; A9270-GY; J1650; J3475

== ENCOUNTER 2021-07-15 19:41 | Emergency (ER) | payer MEDICARE, BC ==
[2021-07-15] MEDS ORDERED: Sodium Chloride 0.9% 1,000 ML IV ONE (20:07)
[2021-07-15 20:53] LABS: ANION GAP 12.9 mEq/L (7-13); CHLORIDE,CL 101 mmol/L (98-107); SODIUM,NA 134 mmol/L (136-145)
[2021-07-15 21:16] LABS: CORONAVIRUS COVID-19 NAA NEGATIVE (NEGATIVE)
[2021-07-15] MEDS ORDERED: Levofloxacin/Dextrose 5%-Water 750 MG in Premix Bag 1 BAG IV ONE (21:27)
== END 2021-07-15 23:25 | disposition home or self-care (01) ==
LOC: DL.ED 19:41
DX: N39.0 Urinary tract infection, site not specified (principal); E78.00 Pure hypercholesterolemia, unspecified; I10 Essential (primary) hypertension; E11.9 Type 2 diabetes mellitus without complications; G35 Multiple sclerosis; Z79.82 Long term (current) use of aspirin; Z79.84 Long term (current) use of oral hypoglycemic drugs; Z79.899 Other long term (current) drug therapy; Z20.822 Contact with and (suspected) exposure to COVID-19
CPT/HCPCS: 0240U; 36415; 80053; 81001; 83605; 83735; 85025; 87040; 87086; 87088; 87186; 96365; 96366; 99284-25; J1956; J7030

== ENCOUNTER 2021-07-16 18:54 | Inpatient (IN) | payer MEDICARE, BC ==
[2021-07-16 19:24] LABS: ANION GAP 13.8 mEq/L (7-13); CHLORIDE,CL 100 mmol/L (98-107); SODIUM,NA 133 mmol/L (136-145)
[2021-07-16] MEDS ORDERED: Sodium Chloride 0.9% 1,000 ML IV ONE (19:30)
[2021-07-16] MEDS ORDERED: Sodium Chloride 0.9% 10 ML Syringe FLUSH PRN (22:25)
[2021-07-16] MEDS ORDERED: Ondansetron 4 MG/2 ML SDV IVPUSH PRN (22:25)
[2021-07-16] MEDS ORDERED: oxyCODONE 5 MG Tab PO PRN (22:25)
[2021-07-16] MEDS: NS + KCl 20mEq/L 1,000 ML IV SCH (22:39)
[2021-07-16] MEDS ORDERED: LORazepam 1 MG Tab PO PRN (23:00)
[2021-07-16] MEDS: Ciprofloxacin in D5W 400 MG in Premix Bag 1 BAG IV SCH ×2 (23:33)
[2021-07-17] MEDS: Acetaminophen 325 MG Tab PO PRN ×2 (02:43→06:42)
[2021-07-17] MEDS: Heparin Sodium 5,000 Units/ML Vial SUBCUT SCH ×3 (05:41→21:08)
[2021-07-17 07:04] LABS: ANION GAP 14.1 mEq/L (7-13)
[2021-07-17] MEDS: Ciprofloxacin in D5W 400 MG in Premix Bag 1 BAG IV SCH ×4 (09:34→21:07)
[2021-07-17] MEDS: Aspirin 81 MG Tab.EC PO SCH (09:34)
[2021-07-17] MEDS: Baclofen 10 MG Tab PO SCH ×2 (09:34→21:07)
[2021-07-17] MEDS: Sodium Chloride 0.9% 10 ML Syringe FLUSH SCH ×2 (09:34→23:39)
[2021-07-17] MEDS ORDERED: 50% Dextrose in Water 50 ML Syringe IVPUSH PRN (12:07)
[2021-07-17] MEDS: Ibuprofen 400 MG Tab PO PRN (12:52)
[2021-07-17] MEDS: NS + KCl 20mEq/L 1,000 ML IV SCH (14:25)
[2021-07-17] MEDS: Insulin Lispro 100 Units/ML 3 ML Vial SUBCUT SCH ×2 (17:52→23:37)
[2021-07-17] MEDS: Omeprazole 20 MG Cap.CR PO SCH (21:07)
[2021-07-17] MEDS: Pravastatin 20 MG Tab PO SCH (21:08)
[2021-07-18] MEDS: Ibuprofen 400 MG Tab PO PRN (00:49)
[2021-07-18] MEDS: NS + KCl 20mEq/L 1,000 ML IV SCH (04:45)
[2021-07-18] MEDS: Heparin Sodium 5,000 Units/ML Vial SUBCUT SCH ×3 (04:59→21:14)
[2021-07-18 07:21] LABS: ANION GAP 14.1 mEq/L (7-13); CHLORIDE,CL 107 mmol/L (98-107); SODIUM,NA 142 mmol/L (136-145)
[2021-07-18] MEDS: Insulin Lispro 100 Units/ML 3 ML Vial SUBCUT SCH ×4 (08:57→20:08)
[2021-07-18] MEDS: Ciprofloxacin in D5W 400 MG in Premix Bag 1 BAG IV SCH ×4 (08:59→21:12)
[2021-07-18] MEDS: Baclofen 10 MG Tab PO SCH ×2 (09:00→21:13)
[2021-07-18] MEDS: Sodium Chloride 0.9% 10 ML Syringe FLUSH SCH ×2 (09:00→21:17)
[2021-07-18] MEDS: Aspirin 81 MG Tab.EC PO SCH (09:00)
[2021-07-18] MEDS: Acetaminophen 325 MG Tab PO PRN (20:10)
[2021-07-18] MEDS: Omeprazole 20 MG Cap.CR PO SCH (21:13)
[2021-07-18] MEDS: Pravastatin 20 MG Tab PO SCH (21:13)
[2021-07-18] MEDS: Temazepam 15 MG Cap PO PRN (21:14)
[2021-07-19] MEDS: Heparin Sodium 5,000 Units/ML Vial SUBCUT SCH ×4 (06:03→21:50)
[2021-07-19 07:59] LABS: ANION GAP 12.3 mEq/L (7-13); CHLORIDE,CL 106 mmol/L (98-107); SODIUM,NA 141 mmol/L (136-145)
[2021-07-19] MEDS: Baclofen 10 MG Tab PO SCH ×2 (08:41→21:48)
[2021-07-19] MEDS: Aspirin 81 MG Tab.EC PO SCH (08:41)
[2021-07-19] MEDS: Sodium Chloride 0.9% 10 ML Syringe FLUSH SCH ×2 (08:42→21:54)
[2021-07-19] MEDS: Ciprofloxacin in D5W 400 MG in Premix Bag 1 BAG IV SCH ×4 (08:42→21:50)
[2021-07-19] MEDS: Insulin Lispro 100 Units/ML 3 ML Vial SUBCUT SCH ×4 (08:42→21:46)
[2021-07-19] MEDS: Omeprazole 20 MG Cap.CR PO SCH (21:48)
[2021-07-19] MEDS: Pravastatin 20 MG Tab PO SCH (21:48)
[2021-07-19] MEDS: Temazepam 15 MG Cap PO PRN (21:48)
[2021-07-20] MEDS: Heparin Sodium 5,000 Units/ML Vial SUBCUT SCH (06:16)
[2021-07-20] MEDS: Insulin Lispro 100 Units/ML 3 ML Vial SUBCUT SCH (09:08)
[2021-07-20] MEDS: Aspirin 81 MG Tab.EC PO SCH (09:08)
[2021-07-20] MEDS: Baclofen 10 MG Tab PO SCH (09:08)
[2021-07-20] MEDS: Ciprofloxacin in D5W 400 MG in Premix Bag 1 BAG IV SCH ×2 (09:09)
[2021-07-20] MEDS: Sodium Chloride 0.9% 10 ML Syringe FLUSH SCH (09:14)
== END 2021-07-20 11:10 | disposition home or self-care (01) | DRG 698 ==
LOC: DL.ED 18:54 → DL.MS 19:45
PROVIDERS: ADMIT Internal Medicine; ATTEND Internal Medicine
DX: T83.510A Infection and inflammatory reaction due to cystostomy catheter, initial encounter (principal); A41.9 Sepsis, unspecified organism; N39.0 Urinary tract infection, site not specified; N17.9 Acute kidney failure, unspecified; E87.1 Hypo-osmolality and hyponatremia; Z96.0 Presence of urogenital implants; E11.9 Type 2 diabetes mellitus without complications; G35 Multiple sclerosis; R33.8 Other retention of urine; I10 Essential (primary) hypertension; E78.00 Pure hypercholesterolemia, unspecified; Z79.82 Long term (current) use of aspirin; Z79.899 Other long term (current) drug therapy; Z79.84 Long term (current) use of oral hypoglycemic drugs; K59.09 Other constipation; N31.9 Neuromuscular dysfunction of bladder, unspecified; R32 Unspecified urinary incontinence; Z86.19 Personal history of other infectious and parasitic diseases; Z87.891 Personal history of nicotine dependence
CPT/HCPCS: 36415; 71045; 80048; 80053; 82150; 82947; 83605; 83690; 83735; 85025; 85027; 87040; 93005; 97110-GP; 97116-GP; 97161-GP; 97165-GO; 99285-25; A9270-GY; J0744; J1644; J1815-GY; J3480; J7030

== ENCOUNTER 2022-10-01 10:43 | Emergency (ER) | payer MEDICARE, BC ==
[2022-10-01] MEDS ORDERED: Sodium Chloride 0.9% 10 ML Syringe FLUSH PRN (11:16)
[2022-10-01] MEDS ORDERED: Sodium Chloride 0.9% 1,000 ML IV ONE (12:20)
[2022-10-01 12:25] LABS: ANION GAP 11.6 mEq/L (7-13)
== END 2022-10-01 13:35 | disposition home or self-care (01) ==
LOC: DL.ED 10:43
DX: E86.0 Dehydration (principal); R31.9 Hematuria, unspecified; E11.9 Type 2 diabetes mellitus without complications; I10 Essential (primary) hypertension; E78.00 Pure hypercholesterolemia, unspecified; Z79.84 Long term (current) use of oral hypoglycemic drugs; Z88.8 Allergy status to other drugs, medicaments and biological substances; Z79.82 Long term (current) use of aspirin; Z79.899 Other long term (current) drug therapy
CPT/HCPCS: 36415; 80053; 81001; 83605; 83735; 85025; 86140; 87040; 96360; 99283; J7030; J3490

== ENCOUNTER 2022-11-06 18:57 | Emergency (ER) | payer MEDICARE, BC ==
[2022-11-06] MEDS ORDERED: Sodium Chloride 0.9% 1,000 ML IV ONE ×2 (20:17→20:26)
[2022-11-06] MEDS ORDERED: Sodium Chloride 0.9% 10 ML Syringe FLUSH PRN ×2 (20:17→20:26)
[2022-11-06] MEDS ORDERED: Piperacillin/Tazobactam 4.5 GM in Sodium Chloride 0.9% 100 ML IV ONE (20:21)
[2022-11-06] MEDS ORDERED: Levofloxacin/Dextrose 5%-Water 750 MG in Premix Bag 1 BAG IV ONE (20:30)
[2022-11-06 20:50] LABS: BASOPHILS PERCENT AUTO 0.3 % (0.0-1.0); HEMATOCRIT 31.3 % (40.0-54.0); HEMOGLOBIN 10.3 g/dL (14.0-18.0); LYMPHOCYTES PERCENT AUTO 5.7 % (20.5-50.1); MEAN CORPUSCULAR HEMOGLOBIN 35.3 pg (27.0-34.0); MEAN CORPUSCULAR HGB CONC 32.9 g/dL (33.0-35.0); MEAN CORPUSCULAR VOLUME 107.2 fL (80-100); MONOCYTES PERCENT AUTO 10.8 % (2-8); NEUTROPHILS PERCENT AUTO 83.2 % (42.2-75.2); PLATELET COUNT,PLT 190 10^3/uL (150-450); RED BLOOD CELL COUNT 2.92 10^6/uL (4.6-6.2); WHITE BLOOD CELL COUNT,WBC 20.4 10^3/uL (5.0-10.0)
[2022-11-06 20:59] LABS: APPEARANCE,URINE CLOUDY (CLEAR); BILIRUBIN,URINE NEGATIVE (NEGATIVE); COLOR,URINE YELLOW (YELLOW); GLUCOSE,URINE NEGATIVE (NEGATIVE); KETONES,URINE TRACE (NEGATIVE); LEUKOCYTE ESTERASE,URINE LARGE (NEGATIVE); NITRITE,URINE NEGATIVE (NEGATIVE); OCCULT BLOOD,URINE LARGE (NEGATIVE); PROTEIN,URINE 100 (NEGATIVE); UROBILINOGEN,URINE 0.2 mg/dL (0.2-1.0)
[2022-11-06 21:09] LABS: BACTERIA,URINE MANY /HPF (0-FEW/HPF); EPITHELIAL CELLS,URINE FEW /HPF (NOT SEEN); RBC,URINE 30-40 /HPF (0-5); WBC,URINE >100 /HPF (0-5/HPF)
[2022-11-06 21:12] LABS: A/G RATIO 1.03; ALBUMIN 3.3 g/dL (3.4-5.0); ANION GAP 11.4 mEq/L (7-13); BILIRUBIN TOTAL 0.5 mg/dL (0.2-1.0); CALCIUM 8.6 mg/dL (8.5-10.1); CREATININE 1.53 mg/dL (0.70-1.30); EST CRCL DRUG DOSING (CG) 32.24 mL/min; POTASSIUM,K 4.4 mmol/L (3.5-5.1); PROTEIN TOTAL,TP 6.5 g/dL (6.4-8.2)
[2022-11-06 21:15] LABS: LACTIC ACID 1.1 mmol/L (0.4-2.0)
== END 2022-11-06 22:53 ==
LOC: DL.ED 18:57
DX: T83.511A Infection and inflammatory reaction due to indwelling urethral catheter, initial encounter (principal); N30.90 Cystitis, unspecified without hematuria; R65.10 Systemic inflammatory response syndrome (SIRS) of non-infectious origin without acute organ dysfunction; E78.00 Pure hypercholesterolemia, unspecified; I10 Essential (primary) hypertension; E11.9 Type 2 diabetes mellitus without complications; Z88.8 Allergy status to other drugs, medicaments and biological substances; Z79.84 Long term (current) use of oral hypoglycemic drugs; Z79.82 Long term (current) use of aspirin; Z79.899 Other long term (current) drug therapy
CPT/HCPCS: 36415; 71045; 80053; 81001; 83605; 84145; 85025; 87040; 93005; 93010; 96365; 96367; 99291; 99291-25; 99292; J1956; J2543; J3490; J7030

== ENCOUNTER 2023-01-22 16:59 | Inpatient (IN) | payer MEDICARE, BC ==
[2023-01-22] MEDS ORDERED: Acetaminophen 500 MG Tab PO ONE (17:12)
[2023-01-22] MEDS ORDERED: Lactated Ringers 1,000 ML IV SCH (17:15)
[2023-01-22] MEDS ORDERED: Sodium Chloride 0.9% 1,000 ML IV ONE ×2 (17:23→18:32)
[2023-01-22] MEDS: Sodium Chloride 0.9% 10 ML Syringe FLUSH PRN ×2 (17:25→21:30)
[2023-01-22 17:27] LABS: BASOPHILS PERCENT AUTO 0.2 % (0.0-1.0); EOSINOPHILS PERCENT AUTO 0.1 % (1.0-3.0); HEMOGLOBIN 10.8 g/dL (14.0-18.0); LYMPHOCYTES PERCENT AUTO 7.3 % (20.5-50.1); MEAN CORPUSCULAR HEMOGLOBIN 33.3 pg (27.0-34.0); MEAN CORPUSCULAR HGB CONC 32.7 g/dL (33.0-35.0); MEAN CORPUSCULAR VOLUME 101.9 fL (80-100); MONOCYTES PERCENT AUTO 10.9 % (2-8); NEUTROPHILS PERCENT AUTO 81.5 % (42.2-75.2); PLATELET COUNT,PLT 165 10^3/uL (150-450); RED BLOOD CELL COUNT 3.24 10^6/uL (4.6-6.2); WHITE BLOOD CELL COUNT,WBC 21.3 10^3/uL (5.0-10.0)
[2023-01-22 17:50] LABS: A/G RATIO 0.9; ALBUMIN 3.5 g/dL (3.4-5.0); ANION GAP 16.7 mEq/L (7-13); BILIRUBIN TOTAL 0.6 mg/dL (0.2-1.0); BUN/CREATININE RATIO 19.8 (No establ ref range); CALCIUM 8.9 mg/dL (8.5-10.1); CREATININE 1.67 mg/dL (0.70-1.30); EST CRCL DRUG DOSING (CG) 34.13 mL/min; POTASSIUM,K 4.7 mmol/L (3.5-5.1); PROTEIN TOTAL,TP 7.2 g/dL (6.4-8.2)
[2023-01-22] MEDS ORDERED: Piperacillin/Tazobactam 4.5 GM in Sodium Chloride 0.9% 100 ML IV ONE (18:11)
[2023-01-22 18:14] LABS: C-REACTIVE PROTEIN 11.3 mg/dL (0.0-0.9); MAGNESIUM 1.9 mg/dL (1.8-2.4)
[2023-01-22] MEDS ORDERED: Sodium Chloride 0.9% 100 ML ONE (18:20)
[2023-01-22 18:29] LABS: APPEARANCE,URINE SLIGHTLY CLOUDY (CLEAR); BILIRUBIN,URINE NEGATIVE (NEGATIVE); COLOR,URINE YELLOW (YELLOW); GLUCOSE,URINE NEGATIVE (NEGATIVE); KETONES,URINE TRACE (NEGATIVE); LEUKOCYTE ESTERASE,URINE LARGE (NEGATIVE); NITRITE,URINE POSITIVE (NEGATIVE); OCCULT BLOOD,URINE LARGE (NEGATIVE); PROTEIN,URINE 100 (NEGATIVE); UROBILINOGEN,URINE 0.2 mg/dL (0.2-1.0)
[2023-01-22 18:36] LABS: RBC,URINE 20-30 /HPF (0-5); WBC,URINE SEMI-PACKED /HPF (0-5/HPF)
[2023-01-22 18:37] LABS: BACTERIA,URINE MANY /HPF (0-FEW/HPF); EPITHELIAL CELLS,URINE FEW /HPF (NOT SEEN); MUCUS,URINE FEW /LPF (NOT SEEN)
[2023-01-22] MEDS ORDERED: Magnesium Hydroxide 400 MG/5 ML Susp 30 ML Cup PO PRN (19:34)
[2023-01-22] MEDS ORDERED: Ondansetron 4 MG/2 ML SDV IVPUSH PRN (19:34)
[2023-01-22] MEDS ORDERED: Bisacodyl 5 MG Tab PO PRN (19:34)
[2023-01-22] MEDS ORDERED: Polyethylene Glycol 3350 Powder 17 GM Packet PO PRN (19:34)
[2023-01-22] MEDS ORDERED: Albuterol/Ipratropium 3.0-0.5 MG/3 ML Neb Soln NEB PRN (19:34)
[2023-01-22] MEDS ORDERED: Acetaminophen/oxyCODONE 325-5 MG Tab PO PRN (19:34)
[2023-01-22] MEDS ORDERED: 50% Dextrose in Water 50 ML Syringe IVPUSH PRN (19:42)
[2023-01-22] MEDS ORDERED: Glucagon,Human Recombinant 1 MG Vial IM PRN (19:42)
[2023-01-22] MEDS ORDERED: Melatonin 3 MG Tab PO PRN (20:31)
[2023-01-22] MEDS: LORazepam 1 MG Tab PO PRN (21:20)
[2023-01-22] MEDS: Saccharomyces Boulardii (Probiotic) 250 MG Cap PO SCH (21:20)
[2023-01-22] MEDS: Baclofen 10 MG Tab PO SCH (21:20)
[2023-01-22] MEDS: Sennosides/Docusate Sodium 50-8.6 MG Tab PO SCH (21:20)
[2023-01-22] MEDS: Omeprazole 20 MG Cap.CR PO SCH (21:20)
[2023-01-22] MEDS: Heparin Sodium 5,000 Units/ML Vial SUBCUT SCH (21:21)
[2023-01-22] MEDS: Sodium Chloride 0.9% 1,000 ML IV SCH (21:48)
[2023-01-22] MEDS: Ciprofloxacin in D5W 400 MG in Premix Bag 1 BAG IV SCH ×2 (21:50)
[2023-01-22] MEDS ORDERED: Cefepime 2 GM Vial IVPUSH ONE (22:00)
[2023-01-22] MEDS: HYDROmorphone 0.5 MG/0.5 ML Syringe IVPUSH PRN (23:15)
[2023-01-23] MEDS: Acetaminophen 325 MG Tab PO PRN ×2 (00:06→11:13)
[2023-01-23 06:25] LABS: BASOPHILS PERCENT AUTO 0.2 % (0.0-1.0); EOSINOPHILS PERCENT AUTO 0.3 % (1.0-3.0); HEMATOCRIT 29.3 % (40.0-54.0); HEMOGLOBIN 9.5 g/dL (14.0-18.0); LYMPHOCYTES PERCENT AUTO 7.7 % (20.5-50.1); MEAN CORPUSCULAR HEMOGLOBIN 33.5 pg (27.0-34.0); MEAN CORPUSCULAR HGB CONC 32.4 g/dL (33.0-35.0); MEAN CORPUSCULAR VOLUME 103.2 fL (80-100); MONOCYTES PERCENT AUTO 10.4 % (2-8); NEUTROPHILS PERCENT AUTO 81.4 % (42.2-75.2); PLATELET COUNT,PLT 134 10^3/uL (150-450); RED BLOOD CELL COUNT 2.84 10^6/uL (4.6-6.2); WHITE BLOOD CELL COUNT,WBC 18.9 10^3/uL (5.0-10.0)
[2023-01-23 06:45] LABS: ALBUMIN 2.7 g/dL (3.4-5.0); ANION GAP 14.4 mEq/L (7-13); BILIRUBIN TOTAL 0.5 mg/dL (0.2-1.0); BUN/CREATININE RATIO 18.3 (No establ ref range); CREATININE 1.53 mg/dL (0.70-1.30); POTASSIUM,K 4.4 mmol/L (3.5-5.1); PROTEIN TOTAL,TP 5.9 g/dL (6.4-8.2)
[2023-01-23 07:01] LABS: A/G RATIO 0.84; C-REACTIVE PROTEIN 19.7 mg/dL (0.0-0.9)
[2023-01-23] MEDS: Sennosides/Docusate Sodium 50-8.6 MG Tab PO SCH ×2 (09:47→21:35)
[2023-01-23] MEDS: Saccharomyces Boulardii (Probiotic) 250 MG Cap PO SCH ×2 (09:47→21:20)
[2023-01-23] MEDS: Baclofen 10 MG Tab PO SCH ×2 (09:48→21:21)
[2023-01-23] MEDS: Ciprofloxacin in D5W 400 MG in Premix Bag 1 BAG IV SCH ×4 (09:48→21:16)
[2023-01-23] MEDS: Heparin Sodium 5,000 Units/ML Vial SUBCUT SCH ×2 (09:48→21:22)
[2023-01-23] MEDS: Insulin Lispro 100 Units/ML 3 ML Vial SUBCUT SCH ×3 (09:50→17:58)
[2023-01-23] MEDS ORDERED: Phenazopyridine 95 MG Tab PO ONE (11:30)
[2023-01-23] MEDS: Cefepime 2 GM in Sodium Chloride 0.9% 100 ML IV SCH ×2 (12:05→21:22)
[2023-01-23] MEDS: Thiamine 100 MG Tab PO SCH (21:20)
[2023-01-23] MEDS: Phenazopyridine 95 MG Tab PO SCH (21:21)
[2023-01-23] MEDS: Folic Acid 1 MG Tab PO SCH (21:21)
[2023-01-23] MEDS: Tolterodine 2 MG Tab PO SCH (21:22)
[2023-01-23] MEDS: Omeprazole 20 MG Cap.CR PO SCH (21:22)
[2023-01-23] MEDS ORDERED: FOSFOMYCIN 3 GM PO ONE (21:30)
[2023-01-23] MEDS ORDERED: FOSFOMYCIN 3 GM PO PRN (21:33)
[2023-01-23] MEDS: Multivitamin Tab PO SCH (21:35)
[2023-01-23] MEDS: Sodium Chloride 0.9% 1,000 ML IV SCH (23:19)
[2023-01-24 06:18] LABS: BASOPHILS PERCENT AUTO 0.3 % (0.0-1.0); EOSINOPHILS PERCENT AUTO 2.3 % (1.0-3.0); HEMATOCRIT 30.3 % (40.0-54.0); HEMOGLOBIN 9.7 g/dL (14.0-18.0); LYMPHOCYTES PERCENT AUTO 15.5 % (20.5-50.1); MEAN CORPUSCULAR HEMOGLOBIN 33.2 pg (27.0-34.0); MEAN CORPUSCULAR VOLUME 103.8 fL (80-100); MONOCYTES PERCENT AUTO 11.8 % (2-8); NEUTROPHILS PERCENT AUTO 70.1 % (42.2-75.2); PLATELET COUNT,PLT 133 10^3/uL (150-450); RED BLOOD CELL COUNT 2.92 10^6/uL (4.6-6.2); WHITE BLOOD CELL COUNT,WBC 12.1 10^3/uL (5.0-10.0)
[2023-01-24 06:50] LABS: ALBUMIN 2.5 g/dL (3.4-5.0); ANION GAP 12.3 mEq/L (7-13); BILIRUBIN TOTAL 0.3 mg/dL (0.2-1.0); BUN/CREATININE RATIO 16.9 (No establ ref range); CALCIUM 8.4 mg/dL (8.5-10.1); CREATININE 1.42 mg/dL (0.70-1.30); EST CRCL DRUG DOSING (CG) 38.79 mL/min; POTASSIUM,K 4.3 mmol/L (3.5-5.1); PROTEIN TOTAL,TP 5.9 g/dL (6.4-8.2)
[2023-01-24 07:07] LABS: A/G RATIO 0.74
[2023-01-24] MEDS: Folic Acid 1 MG Tab PO SCH ×2 (08:36→20:52)
[2023-01-24] MEDS: Saccharomyces Boulardii (Probiotic) 250 MG Cap PO SCH ×2 (08:36→20:47)
[2023-01-24] MEDS: Sennosides/Docusate Sodium 50-8.6 MG Tab PO SCH ×2 (08:36→20:51)
[2023-01-24] MEDS: Phenazopyridine 95 MG Tab PO SCH ×2 (08:37→20:47)
[2023-01-24] MEDS: Tolterodine 2 MG Tab PO SCH ×2 (08:37→20:48)
[2023-01-24] MEDS: amLODIPine 5 MG Tab PO SCH (08:38)
[2023-01-24] MEDS: Heparin Sodium 5,000 Units/ML Vial SUBCUT SCH ×2 (08:41→20:48)
[2023-01-24] MEDS: Insulin Lispro 100 Units/ML 3 ML Vial SUBCUT SCH ×3 (08:44→17:02)
[2023-01-24] MEDS: Baclofen 10 MG Tab PO SCH ×2 (08:48→20:52)
[2023-01-24] MEDS: Ciprofloxacin in D5W 400 MG in Premix Bag 1 BAG IV SCH ×4 (08:50→20:46)
[2023-01-24] MEDS: Aspirin 81 MG Tab.EC PO SCH (09:07)
[2023-01-24] MEDS: Cefepime 2 GM in Sodium Chloride 0.9% 100 ML IV SCH (12:09)
[2023-01-24] MEDS: HYDROmorphone 0.5 MG/0.5 ML Syringe IVPUSH PRN (18:27)
[2023-01-24] MEDS: Thiamine 100 MG Tab PO SCH (20:47)
[2023-01-24] MEDS: Omeprazole 20 MG Cap.CR PO SCH (20:48)
[2023-01-24] MEDS: Multivitamin Tab PO SCH (20:48)
[2023-01-24] MEDS: Sodium Chloride 0.9% 10 ML Syringe FLUSH PRN (20:48)
[2023-01-24] MEDS: Cefepime 2 GM Vial IVPUSH SCH (20:49)
[2023-01-25] MEDS: LORazepam 1 MG Tab PO PRN (03:21)
[2023-01-25] MEDS: Acetaminophen 325 MG Tab PO PRN (04:47)
[2023-01-25 06:08] LABS: BASOPHILS PERCENT AUTO 0.2 % (0.0-1.0); EOSINOPHILS PERCENT AUTO 3.3 % (1.0-3.0); HEMATOCRIT 29.9 % (40.0-54.0); HEMOGLOBIN 9.7 g/dL (14.0-18.0); LYMPHOCYTES PERCENT AUTO 13.6 % (20.5-50.1); MEAN CORPUSCULAR HEMOGLOBIN 33.1 pg (27.0-34.0); MEAN CORPUSCULAR HGB CONC 32.4 g/dL (33.0-35.0); MONOCYTES PERCENT AUTO 8.3 % (2-8); NEUTROPHILS PERCENT AUTO 74.6 % (42.2-75.2); PLATELET COUNT,PLT 157 10^3/uL (150-450); RED BLOOD CELL COUNT 2.93 10^6/uL (4.6-6.2); WHITE BLOOD CELL COUNT,WBC 10.4 10^3/uL (5.0-10.0)
[2023-01-25 06:28] LABS: ALBUMIN 2.6 g/dL (3.4-5.0); ANION GAP 12.8 mEq/L (7-13); BILIRUBIN TOTAL 0.3 mg/dL (0.2-1.0); BUN/CREATININE RATIO 14.3 (No establ ref range); CALCIUM 8.3 mg/dL (8.5-10.1); CREATININE 1.26 mg/dL (0.70-1.30); EST CRCL DRUG DOSING (CG) 43.72 mL/min; MAGNESIUM 1.8 mg/dL (1.8-2.4); POTASSIUM,K 3.8 mmol/L (3.5-5.1); PROTEIN TOTAL,TP 6.2 g/dL (6.4-8.2)
[2023-01-25 06:34] LABS: A/G RATIO 0.72; C-REACTIVE PROTEIN 16.6 mg/dL (0.0-0.9)
[2023-01-25] MEDS: Insulin Lispro 100 Units/ML 3 ML Vial SUBCUT SCH ×2 (09:26→12:20)
[2023-01-25] MEDS: Ciprofloxacin in D5W 400 MG in Premix Bag 1 BAG IV SCH ×2 (09:37)
[2023-01-25] MEDS: Saccharomyces Boulardii (Probiotic) 250 MG Cap PO SCH (09:41)
[2023-01-25] MEDS: Sennosides/Docusate Sodium 50-8.6 MG Tab PO SCH (09:41)
[2023-01-25] MEDS: Phenazopyridine 95 MG Tab PO SCH (09:41)
[2023-01-25] MEDS: Tolterodine 2 MG Tab PO SCH (09:41)
[2023-01-25] MEDS: Baclofen 10 MG Tab PO SCH (09:42)
[2023-01-25] MEDS: Folic Acid 1 MG Tab PO SCH (09:42)
[2023-01-25] MEDS: Heparin Sodium 5,000 Units/ML Vial SUBCUT SCH (09:42)
[2023-01-25] MEDS: amLODIPine 5 MG Tab PO SCH (09:42)
[2023-01-25] MEDS: Aspirin 81 MG Tab.EC PO SCH (09:42)
[2023-01-25] MEDS: Cefepime 2 GM Vial IVPUSH SCH (12:48)
[2023-01-30] MEDS ORDERED: FOSFOMYCIN 3 GM PO SCH (11:00)
[2023-02-06] MEDS ORDERED: FOSFOMYCIN 3 GM PO SCH (11:00)
== END 2023-01-25 15:00 | disposition home or self-care (01) | DRG 698 ==
LOC: DL.ED 16:59 → UNDOADMIN 18:34 → DL.MS 18:34
PROVIDERS: ADMIT Internal Medicine; ATTEND Internal Medicine
DX: T83.511A Infection and inflammatory reaction due to indwelling urethral catheter, initial encounter (principal); A41.9 Sepsis, unspecified organism; A41.52 Sepsis due to Pseudomonas; R65.20 Severe sepsis without septic shock; N17.9 Acute kidney failure, unspecified; E87.20 Acidosis, unspecified; N39.0 Urinary tract infection, site not specified; N31.9 Neuromuscular dysfunction of bladder, unspecified; G35 Multiple sclerosis; K59.09 Other constipation; G47.33 Obstructive sleep apnea (adult) (pediatric); K21.9 Gastro-esophageal reflux disease without esophagitis; I16.0 Hypertensive urgency; D50.9 Iron deficiency anemia, unspecified; E11.65 Type 2 diabetes mellitus with hyperglycemia; D69.6 Thrombocytopenia, unspecified; Z88.8 Allergy status to other drugs, medicaments and biological substances; E11.9 Type 2 diabetes mellitus without complications; I10 Essential (primary) hypertension; E78.00 Pure hypercholesterolemia, unspecified; Z79.2 Long term (current) use of antibiotics; Z79.82 Long term (current) use of aspirin; Z79.84 Long term (current) use of oral hypoglycemic drugs; Z79.899 Other long term (current) drug therapy; Z87.440 Personal history of urinary (tract) infections; Y84.6 Urinary catheterization as the cause of abnormal reaction of the patient, or of later complication, without mention of misadventure at the time of the procedure
CPT/HCPCS: 36415; 71045; 80053; 81001; 83605; 83735; 84145; 85025; 86140; 87040 ×2; 87086; 87088; 87186; 93005; A9270; J2543; J3490; J7030; 76770; 81003; 82947; 93010; 97161-GP; 97165-GO; 97530-GP; 99233; 99238; 99285; J0692; J0744; J1170; J1644; J1815-GY

== ENCOUNTER 2023-03-10 11:44 | Inpatient (IN) | payer MEDICARE, BC ==
[2023-03-10 12:22] LABS: BILIRUBIN,URINE NEGATIVE (NEGATIVE); COLOR,URINE YELLOW (YELLOW); GLUCOSE,URINE NEGATIVE (NEGATIVE); KETONES,URINE NEGATIVE (NEGATIVE); LEUKOCYTE ESTERASE,URINE SMALL (NEGATIVE); NITRITE,URINE NEGATIVE (NEGATIVE); OCCULT BLOOD,URINE MODERATE (NEGATIVE); PROTEIN,URINE >=300 (NEGATIVE); UROBILINOGEN,URINE 0.2 mg/dL (0.2-1.0)
[2023-03-10 12:23] LABS: APPEARANCE,URINE SLIGHTLY CLOUDY (CLEAR)
[2023-03-10 12:35] LABS: BACTERIA,URINE MANY /HPF (0-FEW/HPF); EPITHELIAL CELLS,URINE OCCASIONAL /HPF (NOT SEEN); RBC,URINE 0-5 /HPF (0-5); YEAST,URINE FEW /HPF (NOT SEEN)
[2023-03-10 12:35] LABS: BASOPHILS PERCENT AUTO 0.3 % (0.0-1.0); EOSINOPHILS PERCENT AUTO 0.1 % (1.0-3.0); HEMATOCRIT 30.4 % (40.0-54.0); HEMOGLOBIN 10.2 g/dL (14.0-18.0); LYMPHOCYTES PERCENT AUTO 7.6 % (20.5-50.1); MEAN CORPUSCULAR HEMOGLOBIN 33.8 pg (27.0-34.0); MEAN CORPUSCULAR HGB CONC 33.6 g/dL (33.0-35.0); MEAN CORPUSCULAR VOLUME 100.7 fL (80-100); MONOCYTES PERCENT AUTO 7.7 % (2-8); NEUTROPHILS PERCENT AUTO 84.3 % (42.2-75.2); PLATELET COUNT,PLT 275 10^3/uL (150-450); RED BLOOD CELL COUNT 3.02 10^6/uL (4.6-6.2); WHITE BLOOD CELL COUNT,WBC 22.8 10^3/uL (5.0-10.0)
[2023-03-10 12:54] LABS: ALBUMIN 3.2 g/dL (3.4-5.0); BILIRUBIN TOTAL 0.3 mg/dL (0.2-1.0); BUN/CREATININE RATIO 14.2 (No establ ref range); CALCIUM 9.7 mg/dL (8.5-10.1); CREATININE 2.61 mg/dL (0.70-1.30); EST CRCL DRUG DOSING (CG) 19.64 mL/min; PROTEIN TOTAL,TP 7.2 g/dL (6.4-8.2)
[2023-03-10] MEDS ORDERED: cefTRIAXone 1 GM Vial IVPUSH ONE (12:54)
[2023-03-10] MEDS ORDERED: Sodium Chloride 0.9% 10 ML Syringe FLUSH PRN (12:54)
[2023-03-10 12:55] LABS: A/G RATIO 0.8
[2023-03-10 12:57] LABS: LACTIC ACID 1.3 mmol/L (0.4-2.0)
[2023-03-10] MEDS ORDERED: LORazepam 1 MG Tab PO PRN (15:32)
[2023-03-10] MEDS ORDERED: Polyethylene Glycol 3350 Powder 17 GM Packet PO PRN (15:32)
[2023-03-10] MEDS ORDERED: Acetaminophen/HYDROcodone 325-5 MG Tab PO PRN (15:43)
[2023-03-10] MEDS ORDERED: Ondansetron 4 MG/2 ML SDV IVPUSH PRN (15:43)
[2023-03-10] MEDS ORDERED: Acetaminophen 325 MG Tab PO PRN (15:43)
[2023-03-10] MEDS: Pravastatin 20 MG Tab PO SCH ×2 (20:58→21:13)
[2023-03-10] MEDS: Docusate Sodium 100 MG Cap PO SCH ×2 (20:58→21:12)
[2023-03-10] MEDS: Omeprazole 20 MG Cap.CR PO SCH ×2 (20:58→21:13)
[2023-03-10] MEDS: Baclofen 10 MG Tab PO SCH ×2 (20:58→21:12)
[2023-03-10] MEDS: Saccharomyces Boulardii (Probiotic) 250 MG Cap PO SCH ×2 (20:58→21:12)
[2023-03-10] MEDS: Heparin Sodium 5,000 Units/ML Vial SUBCUT SCH (20:59)
[2023-03-10] MEDS: Meropenem 1 GM SDV IVPUSH SCH (21:07)
[2023-03-10] MEDS ORDERED: Cefepime 1 GM Vial IVPUSH SCH (22:00)
[2023-03-10] MEDS ORDERED: Acetaminophen 650 MG Supp RECTAL PRN (22:00)
[2023-03-11 06:38] LABS: BASOPHILS PERCENT AUTO 0.3 % (0.0-1.0); EOSINOPHILS PERCENT AUTO 0.8 % (1.0-3.0); HEMATOCRIT 29.7 % (40.0-54.0); HEMOGLOBIN 9.9 g/dL (14.0-18.0); LYMPHOCYTES PERCENT AUTO 15.1 % (20.5-50.1); MEAN CORPUSCULAR HEMOGLOBIN 33.8 pg (27.0-34.0); MEAN CORPUSCULAR HGB CONC 33.3 g/dL (33.0-35.0); MEAN CORPUSCULAR VOLUME 101.4 fL (80-100); MONOCYTES PERCENT AUTO 10.9 % (2-8); NEUTROPHILS PERCENT AUTO 72.9 % (42.2-75.2); PLATELET COUNT,PLT 253 10^3/uL (150-450); RED BLOOD CELL COUNT 2.93 10^6/uL (4.6-6.2); WHITE BLOOD CELL COUNT,WBC 14.7 10^3/uL (5.0-10.0)
[2023-03-11 06:52] LABS: ANION GAP 14.6 mEq/L (7-13); CALCIUM 9.6 mg/dL (8.5-10.1); CREATININE 2.44 mg/dL (0.70-1.30); EST CRCL DRUG DOSING (CG) 22.58 mL/min; POTASSIUM,K 4.6 mmol/L (3.5-5.1)
[2023-03-11] MEDS ORDERED: MIRABEGRON 25 MG PO SCH (09:00)
[2023-03-11] MEDS: Aspirin 81 MG Tab.EC PO SCH (09:23)
[2023-03-11] MEDS: Docusate Sodium 100 MG Cap PO SCH ×2 (09:23→21:51)
[2023-03-11] MEDS: Folic Acid 1 MG Tab PO SCH (09:23)
[2023-03-11] MEDS: Baclofen 10 MG Tab PO SCH ×2 (09:23→21:51)
[2023-03-11] MEDS: amLODIPine 5 MG Tab PO SCH (09:23)
[2023-03-11] MEDS: Heparin Sodium 5,000 Units/ML Vial SUBCUT SCH ×2 (09:24→21:56)
[2023-03-11] MEDS: Saccharomyces Boulardii (Probiotic) 250 MG Cap PO SCH ×2 (09:24→21:50)
[2023-03-11] MEDS: Meropenem 1 GM SDV IVPUSH SCH ×2 (09:24→21:57)
[2023-03-11] MEDS: TROSPIUM 20 MG PO SCH ×4 (11:46→22:03)
[2023-03-11] MEDS: MIRABEGRON 25 MG PO SCH (12:28)
[2023-03-11] MEDS: Omeprazole 20 MG Cap.CR PO SCH (21:51)
[2023-03-11] MEDS: Pravastatin 20 MG Tab PO SCH (21:51)
[2023-03-12 06:37] LABS: BASOPHILS PERCENT AUTO 0.3 % (0.0-1.0); EOSINOPHILS PERCENT AUTO 0.8 % (1.0-3.0); HEMATOCRIT 32.9 % (40.0-54.0); HEMOGLOBIN 10.8 g/dL (14.0-18.0); MEAN CORPUSCULAR HEMOGLOBIN 33.4 pg (27.0-34.0); MEAN CORPUSCULAR HGB CONC 32.8 g/dL (33.0-35.0); MEAN CORPUSCULAR VOLUME 101.9 fL (80-100); MONOCYTES PERCENT AUTO 10.2 % (2-8); NEUTROPHILS PERCENT AUTO 77.7 % (42.2-75.2); PLATELET COUNT,PLT 271 10^3/uL (150-450); RED BLOOD CELL COUNT 3.23 10^6/uL (4.6-6.2); WHITE BLOOD CELL COUNT,WBC 17.4 10^3/uL (5.0-10.0)
[2023-03-12 06:49] LABS: ANION GAP 12.5 mEq/L (7-13); CALCIUM 9.3 mg/dL (8.5-10.1); CREATININE 2.11 mg/dL (0.70-1.30); EST CRCL DRUG DOSING (CG) 26.11 mL/min; POTASSIUM,K 4.5 mmol/L (3.5-5.1)
[2023-03-12] MEDS: Aspirin 81 MG Tab.EC PO SCH (08:57)
[2023-03-12] MEDS: Saccharomyces Boulardii (Probiotic) 250 MG Cap PO SCH ×2 (08:57→21:01)
[2023-03-12] MEDS: Docusate Sodium 100 MG Cap PO SCH ×2 (08:57→21:02)
[2023-03-12] MEDS: Baclofen 10 MG Tab PO SCH ×2 (08:57→21:01)
[2023-03-12] MEDS: Folic Acid 1 MG Tab PO SCH (08:58)
[2023-03-12] MEDS: Heparin Sodium 5,000 Units/ML Vial SUBCUT SCH ×2 (08:58→21:00)
[2023-03-12] MEDS: TROSPIUM 20 MG PO SCH ×2 (08:59→21:01)
[2023-03-12] MEDS: MIRABEGRON 25 MG PO SCH (08:59)
[2023-03-12] MEDS: amLODIPine 5 MG Tab PO SCH (09:00)
[2023-03-12] MEDS: Meropenem 1 GM SDV IVPUSH SCH ×2 (09:00→21:03)
[2023-03-12] MEDS: Carboxymethylcellulose Sodium 1% Ophth Gel 0.4 ML UD EYEBOTH PRN ×2 (16:15→21:02)
[2023-03-12] MEDS: Omeprazole 20 MG Cap.CR PO SCH (21:01)
[2023-03-12] MEDS: Pravastatin 20 MG Tab PO SCH (21:02)
[2023-03-13 06:34] LABS: BASOPHILS PERCENT AUTO 0.3 % (0.0-1.0); HEMATOCRIT 31.9 % (40.0-54.0); HEMOGLOBIN 10.7 g/dL (14.0-18.0); LYMPHOCYTES PERCENT AUTO 17.5 % (20.5-50.1); MEAN CORPUSCULAR HEMOGLOBIN 33.9 pg (27.0-34.0); MEAN CORPUSCULAR HGB CONC 33.5 g/dL (33.0-35.0); MEAN CORPUSCULAR VOLUME 100.9 fL (80-100); MONOCYTES PERCENT AUTO 10.9 % (2-8); NEUTROPHILS PERCENT AUTO 69.3 % (42.2-75.2); PLATELET COUNT,PLT 257 10^3/uL (150-450); RED BLOOD CELL COUNT 3.16 10^6/uL (4.6-6.2); WHITE BLOOD CELL COUNT,WBC 13.1 10^3/uL (5.0-10.0)
[2023-03-13 06:53] LABS: ANION GAP 15.4 mEq/L (7-13); CALCIUM 9.1 mg/dL (8.5-10.1); CREATININE 2.02 mg/dL (0.70-1.30); EST CRCL DRUG DOSING (CG) 27.27 mL/min; POTASSIUM,K 4.4 mmol/L (3.5-5.1)
[2023-03-13] MEDS ORDERED: FLU (Fluad Quad) 2023-24(65UP)/MF59C/PF 60 MCG/0.5 ML Syringe IM ONE (09:00)
[2023-03-13] MEDS: amLODIPine 5 MG Tab PO SCH (09:17)
[2023-03-13] MEDS: Saccharomyces Boulardii (Probiotic) 250 MG Cap PO SCH (09:17)
[2023-03-13] MEDS: Docusate Sodium 100 MG Cap PO SCH (09:17)
[2023-03-13] MEDS: Baclofen 10 MG Tab PO SCH (09:17)
[2023-03-13] MEDS: Aspirin 81 MG Tab.EC PO SCH (09:17)
[2023-03-13] MEDS: Folic Acid 1 MG Tab PO SCH (09:18)
[2023-03-13] MEDS: Meropenem 1 GM SDV IVPUSH SCH (09:21)
[2023-03-13] MEDS: Heparin Sodium 5,000 Units/ML Vial SUBCUT SCH (09:25)
== END 2023-03-13 10:12 | DRG 698 ==
LOC: DL.ED 11:44 → DL.MS 13:22 → DL.ED 13:41
PROVIDERS: ADMIT Internal Medicine; ATTEND Internal Medicine
DX: T83.510A Infection and inflammatory reaction due to cystostomy catheter, initial encounter (principal); A41.9 Sepsis, unspecified organism; N17.9 Acute kidney failure, unspecified; N13.6 Pyonephrosis; N18.9 Chronic kidney disease, unspecified; N30.00 Acute cystitis without hematuria; R31.9 Hematuria, unspecified; E11.22 Type 2 diabetes mellitus with diabetic chronic kidney disease; G47.30 Sleep apnea, unspecified; I12.9 Hypertensive chronic kidney disease with stage 1 through stage 4 chronic kidney disease, or unspecified chronic kidney disease; G35 Multiple sclerosis; E78.00 Pure hypercholesterolemia, unspecified; K59.09 Other constipation; N40.0 Benign prostatic hyperplasia without lower urinary tract symptoms; D64.9 Anemia, unspecified; I10 Essential (primary) hypertension; Z90.49 Acquired absence of other specified parts of digestive tract; Z98.890 Other specified postprocedural states; Z88.8 Allergy status to other drugs, medicaments and biological substances; Z87.891 Personal history of nicotine dependence; Z79.84 Long term (current) use of oral hypoglycemic drugs; Z79.82 Long term (current) use of aspirin; Z79.899 Other long term (current) drug therapy
CPT/HCPCS: 36415; 51703; 76770; 80048; 80053; 81001; 82947; 83605; 85025; 87086; 87088; 87186; 96374; 97161-GP; 97165-GO; 99223; 99233; 99239; 99285; 99285-25; A9270-GY; J0696; J1644; J2185; J3490

== ENCOUNTER 2023-03-13 08:53 | Inpatient (IN) | payer MEDICARE, BC ==
[2023-03-13] MEDS ORDERED: Polyethylene Glycol 3350 Powder 17 GM Packet PO PRN (10:12)
[2023-03-13] MEDS ORDERED: Carboxymethylcellulose Sodium 1% Ophth Gel 0.4 ML UD EYEBOTH PRN (10:12)
[2023-03-13] MEDS ORDERED: Acetaminophen 650 MG Supp RECTAL PRN (10:12)
[2023-03-13] MEDS ORDERED: Ondansetron 4 MG/2 ML SDV IVPUSH PRN (10:12)
[2023-03-13] MEDS ORDERED: Sodium Chloride 0.9% 10 ML Syringe FLUSH PRN ×2 (10:12)
[2023-03-13] MEDS ORDERED: Ertapenem 1 GM Vial IVPUSH SCH (11:00)
[2023-03-13] MEDS: Ertapenem 1 GM Vial IVPUSH SCH (12:47)
[2023-03-13] MEDS: Saccharomyces Boulardii (Probiotic) 250 MG Cap PO SCH (20:57)
[2023-03-13] MEDS: Omeprazole 20 MG Cap.CR PO SCH (20:58)
[2023-03-13] MEDS: Docusate Sodium 100 MG Cap PO SCH (20:58)
[2023-03-13] MEDS: Baclofen 10 MG Tab PO SCH (20:58)
[2023-03-13] MEDS: Pravastatin 20 MG Tab PO SCH (20:58)
[2023-03-13] MEDS: Sodium Chloride 0.9% 10 ML Syringe FLUSH SCH (20:59)
[2023-03-13] MEDS: Heparin Sodium 5,000 Units/ML Vial SUBCUT SCH (20:59)
[2023-03-13] MEDS: LORazepam 1 MG Tab PO PRN (21:00)
[2023-03-13] MEDS ORDERED: Meropenem 1 GM SDV IVPUSH SCH (21:00)
[2023-03-13] MEDS: TROSPIUM 20 MG PO SCH (21:07)
[2023-03-14 06:12] LABS: BASOPHILS PERCENT AUTO 0.5 % (0.0-1.0); EOSINOPHILS PERCENT AUTO 2.3 % (1.0-3.0); HEMATOCRIT 32.9 % (40.0-54.0); HEMOGLOBIN 10.8 g/dL (14.0-18.0); LYMPHOCYTES PERCENT AUTO 15.5 % (20.5-50.1); MEAN CORPUSCULAR HEMOGLOBIN 33.3 pg (27.0-34.0); MEAN CORPUSCULAR HGB CONC 32.8 g/dL (33.0-35.0); MEAN CORPUSCULAR VOLUME 101.5 fL (80-100); MONOCYTES PERCENT AUTO 10.8 % (2-8); NEUTROPHILS PERCENT AUTO 70.9 % (42.2-75.2); PLATELET COUNT,PLT 270 10^3/uL (150-450); RED BLOOD CELL COUNT 3.24 10^6/uL (4.6-6.2); WHITE BLOOD CELL COUNT,WBC 15.4 10^3/uL (5.0-10.0)
[2023-03-14 06:25] LABS: ANION GAP 16.3 mEq/L (7-13); CALCIUM 9.4 mg/dL (8.5-10.1); CREATININE 1.95 mg/dL (0.70-1.30); EST CRCL DRUG DOSING (CG) 28.25 mL/min; POTASSIUM,K 4.3 mmol/L (3.5-5.1)
[2023-03-14] MEDS: Aspirin 81 MG Tab.EC PO SCH (09:45)
[2023-03-14] MEDS: Saccharomyces Boulardii (Probiotic) 250 MG Cap PO SCH ×2 (09:45→21:11)
[2023-03-14] MEDS: amLODIPine 5 MG Tab PO SCH (09:45)
[2023-03-14] MEDS: Docusate Sodium 100 MG Cap PO SCH ×2 (09:45→21:11)
[2023-03-14] MEDS: Baclofen 10 MG Tab PO SCH ×2 (09:46→21:11)
[2023-03-14] MEDS: Folic Acid 1 MG Tab PO SCH (09:46)
[2023-03-14] MEDS: Heparin Sodium 5,000 Units/ML Vial SUBCUT SCH ×2 (09:46→21:12)
[2023-03-14] MEDS: MIRABEGRON 25 MG PO SCH (09:47)
[2023-03-14] MEDS: TROSPIUM 20 MG PO SCH ×2 (09:48→21:12)
[2023-03-14] MEDS: Sodium Chloride 0.9% 10 ML Syringe FLUSH SCH ×2 (09:49→21:14)
[2023-03-14] MEDS: Ertapenem 1 GM Vial IVPUSH SCH (11:39)
[2023-03-14] MEDS: Pravastatin 20 MG Tab PO SCH (21:10)
[2023-03-14] MEDS: Omeprazole 20 MG Cap.CR PO SCH (21:11)
[2023-03-15] MEDS: Acetaminophen/HYDROcodone 325-5 MG Tab PO PRN (03:45)
[2023-03-15 06:06] LABS: BASOPHILS PERCENT AUTO 0.3 % (0.0-1.0); EOSINOPHILS PERCENT AUTO 2.3 % (1.0-3.0); HEMATOCRIT 31.4 % (40.0-54.0); HEMOGLOBIN 10.4 g/dL (14.0-18.0); LYMPHOCYTES PERCENT AUTO 14.2 % (20.5-50.1); MEAN CORPUSCULAR HEMOGLOBIN 33.7 pg (27.0-34.0); MEAN CORPUSCULAR HGB CONC 33.1 g/dL (33.0-35.0); MEAN CORPUSCULAR VOLUME 101.6 fL (80-100); MONOCYTES PERCENT AUTO 9.7 % (2-8); NEUTROPHILS PERCENT AUTO 73.5 % (42.2-75.2); PLATELET COUNT,PLT 264 10^3/uL (150-450); RED BLOOD CELL COUNT 3.09 10^6/uL (4.6-6.2); WHITE BLOOD CELL COUNT,WBC 15.6 10^3/uL (5.0-10.0)
[2023-03-15 06:18] LABS: ANION GAP 13.6 mEq/L (7-13); CALCIUM 9.3 mg/dL (8.5-10.1); CREATININE 1.83 mg/dL (0.70-1.30); EST CRCL DRUG DOSING (CG) 30.1 mL/min; POTASSIUM,K 4.6 mmol/L (3.5-5.1)
[2023-03-15] MEDS: amLODIPine 5 MG Tab PO SCH (09:00)
[2023-03-15] MEDS: Saccharomyces Boulardii (Probiotic) 250 MG Cap PO SCH ×2 (09:00→21:35)
[2023-03-15] MEDS: Folic Acid 1 MG Tab PO SCH (09:01)
[2023-03-15] MEDS: Docusate Sodium 100 MG Cap PO SCH ×2 (09:01→21:35)
[2023-03-15] MEDS: Heparin Sodium 5,000 Units/ML Vial SUBCUT SCH ×2 (09:01→21:32)
[2023-03-15] MEDS: Baclofen 10 MG Tab PO SCH ×2 (09:01→21:36)
[2023-03-15] MEDS: Aspirin 81 MG Tab.EC PO SCH (09:01)
[2023-03-15] MEDS: MIRABEGRON 25 MG PO SCH (10:25)
[2023-03-15] MEDS: TROSPIUM 20 MG PO SCH ×2 (10:25→21:37)
[2023-03-15] MEDS: Sodium Chloride 0.9% 10 ML Syringe FLUSH SCH ×2 (10:25→21:30)
[2023-03-15] MEDS: Ertapenem 1 GM Vial IVPUSH SCH (11:31)
[2023-03-15] MEDS ORDERED: Magnesium Hydroxide 400 MG/5 ML Susp 30 ML Cup PO PRN (13:41)
[2023-03-15] MEDS ORDERED: Bisacodyl 5 MG Tab PO PRN (13:42)
[2023-03-15] MEDS: Omeprazole 20 MG Cap.CR PO SCH (21:35)
[2023-03-15] MEDS: Pravastatin 20 MG Tab PO SCH (21:36)
[2023-03-16 06:34] LABS: BASOPHILS PERCENT AUTO 0.4 % (0.0-1.0); EOSINOPHILS PERCENT AUTO 2.3 % (1.0-3.0); HEMATOCRIT 31.6 % (40.0-54.0); HEMOGLOBIN 10.4 g/dL (14.0-18.0); LYMPHOCYTES PERCENT AUTO 16.1 % (20.5-50.1); MEAN CORPUSCULAR HEMOGLOBIN 33.5 pg (27.0-34.0); MEAN CORPUSCULAR HGB CONC 32.9 g/dL (33.0-35.0); MEAN CORPUSCULAR VOLUME 101.9 fL (80-100); MONOCYTES PERCENT AUTO 9.3 % (2-8); NEUTROPHILS PERCENT AUTO 71.9 % (42.2-75.2); PLATELET COUNT,PLT 249 10^3/uL (150-450); WHITE BLOOD CELL COUNT,WBC 15.3 10^3/uL (5.0-10.0)
[2023-03-16 06:50] LABS: ANION GAP 12.5 mEq/L (7-13); CALCIUM 9.5 mg/dL (8.5-10.1); CREATININE 1.76 mg/dL (0.70-1.30); EST CRCL DRUG DOSING (CG) 31.3 mL/min; POTASSIUM,K 4.5 mmol/L (3.5-5.1)
[2023-03-16] MEDS: Saccharomyces Boulardii (Probiotic) 250 MG Cap PO SCH ×2 (08:20→21:59)
[2023-03-16] MEDS: Aspirin 81 MG Tab.EC PO SCH (08:22)
[2023-03-16] MEDS: amLODIPine 5 MG Tab PO SCH (08:22)
[2023-03-16] MEDS: Baclofen 10 MG Tab PO SCH ×2 (08:22→21:59)
[2023-03-16] MEDS: Docusate Sodium 100 MG Cap PO SCH ×2 (08:22→21:59)
[2023-03-16] MEDS: Folic Acid 1 MG Tab PO SCH (08:22)
[2023-03-16] MEDS: TROSPIUM 20 MG PO SCH ×2 (08:23→22:00)
[2023-03-16] MEDS: Heparin Sodium 5,000 Units/ML Vial SUBCUT SCH ×2 (08:24→22:01)
[2023-03-16] MEDS: MIRABEGRON 25 MG PO SCH (08:24)
[2023-03-16] MEDS: Acetaminophen 325 MG Tab PO PRN (08:25)
[2023-03-16] MEDS: Sodium Chloride 0.9% 10 ML Syringe FLUSH SCH ×2 (08:49→22:01)
[2023-03-16] MEDS: Ertapenem 1 GM Vial IVPUSH SCH (12:15)
[2023-03-16] MEDS: Omeprazole 20 MG Cap.CR PO SCH (21:59)
[2023-03-16] MEDS: Pravastatin 20 MG Tab PO SCH (21:59)
[2023-03-17] MEDS: Docusate Sodium 100 MG Cap PO SCH ×2 (08:48→20:02)
[2023-03-17] MEDS: Heparin Sodium 5,000 Units/ML Vial SUBCUT SCH ×2 (08:48→20:02)
[2023-03-17] MEDS: Baclofen 10 MG Tab PO SCH ×2 (08:48→20:02)
[2023-03-17] MEDS: Aspirin 81 MG Tab.EC PO SCH (08:48)
[2023-03-17] MEDS: Folic Acid 1 MG Tab PO SCH (08:49)
[2023-03-17] MEDS: Saccharomyces Boulardii (Probiotic) 250 MG Cap PO SCH ×2 (08:49→20:02)
[2023-03-17] MEDS: amLODIPine 5 MG Tab PO SCH (08:49)
[2023-03-17] MEDS: MIRABEGRON 25 MG PO SCH (08:50)
[2023-03-17] MEDS: TROSPIUM 20 MG PO SCH ×2 (08:50→20:01)
[2023-03-17] MEDS: Sodium Chloride 0.9% 10 ML Syringe FLUSH SCH ×2 (08:51→20:03)
[2023-03-17] MEDS: Acetaminophen 325 MG Tab PO PRN (08:56)
[2023-03-17] MEDS: LORazepam 1 MG Tab PO PRN (20:00)
[2023-03-17] MEDS: Acetaminophen/HYDROcodone 325-5 MG Tab PO PRN (20:02)
[2023-03-17] MEDS: Pravastatin 20 MG Tab PO SCH (20:02)
[2023-03-17] MEDS: Omeprazole 20 MG Cap.CR PO SCH (20:02)
[2023-03-18] MEDS: Saccharomyces Boulardii (Probiotic) 250 MG Cap PO SCH ×2 (08:50→20:06)
[2023-03-18] MEDS: Baclofen 10 MG Tab PO SCH ×2 (08:50→20:06)
[2023-03-18] MEDS: Docusate Sodium 100 MG Cap PO SCH ×2 (08:50→20:06)
[2023-03-18] MEDS: Folic Acid 1 MG Tab PO SCH (08:51)
[2023-03-18] MEDS: Aspirin 81 MG Tab.EC PO SCH (08:51)
[2023-03-18] MEDS: amLODIPine 5 MG Tab PO SCH (08:51)
[2023-03-18] MEDS: Sodium Chloride 0.9% 10 ML Syringe FLUSH SCH ×3 (08:51→20:17)
[2023-03-18] MEDS: Heparin Sodium 5,000 Units/ML Vial SUBCUT SCH ×2 (08:51→20:09)
[2023-03-18] MEDS: TROSPIUM 20 MG PO SCH ×2 (08:53→20:05)
[2023-03-18] MEDS: MIRABEGRON 25 MG PO SCH (08:53)
[2023-03-18] MEDS: Pravastatin 20 MG Tab PO SCH (20:06)
[2023-03-18] MEDS: LORazepam 1 MG Tab PO PRN (20:07)
[2023-03-18] MEDS: Acetaminophen/HYDROcodone 325-5 MG Tab PO PRN (20:07)
[2023-03-18] MEDS: Omeprazole 20 MG Cap.CR PO SCH (20:07)
[2023-03-19 06:48] LABS: BASOPHILS PERCENT AUTO 0.6 % (0.0-1.0); EOSINOPHILS PERCENT AUTO 3.4 % (1.0-3.0); HEMATOCRIT 28.3 % (40.0-54.0); HEMOGLOBIN 9.3 g/dL (14.0-18.0); LYMPHOCYTES PERCENT AUTO 26.2 % (20.5-50.1); MEAN CORPUSCULAR HEMOGLOBIN 33.7 pg (27.0-34.0); MEAN CORPUSCULAR HGB CONC 32.9 g/dL (33.0-35.0); MEAN CORPUSCULAR VOLUME 102.5 fL (80-100); MONOCYTES PERCENT AUTO 9.6 % (2-8); NEUTROPHILS PERCENT AUTO 60.2 % (42.2-75.2); PLATELET COUNT,PLT 263 10^3/uL (150-450); RED BLOOD CELL COUNT 2.76 10^6/uL (4.6-6.2); WHITE BLOOD CELL COUNT,WBC 10.7 10^3/uL (5.0-10.0)
[2023-03-19 07:02] LABS: ANION GAP 9.1 mEq/L (7-13); CREATININE 1.6 mg/dL (0.70-1.30); EST CRCL DRUG DOSING (CG) 34.43 mL/min; POTASSIUM,K 4.1 mmol/L (3.5-5.1)
[2023-03-19] MEDS: Saccharomyces Boulardii (Probiotic) 250 MG Cap PO SCH ×2 (09:36→20:21)
[2023-03-19] MEDS: Baclofen 10 MG Tab PO SCH ×2 (09:36→20:21)
[2023-03-19] MEDS: Folic Acid 1 MG Tab PO SCH (09:36)
[2023-03-19] MEDS: Heparin Sodium 5,000 Units/ML Vial SUBCUT SCH ×2 (09:36→20:24)
[2023-03-19] MEDS: Docusate Sodium 100 MG Cap PO SCH ×2 (09:36→20:21)
[2023-03-19] MEDS: Aspirin 81 MG Tab.EC PO SCH (09:36)
[2023-03-19] MEDS: MIRABEGRON 25 MG PO SCH (09:39)
[2023-03-19] MEDS: TROSPIUM 20 MG PO SCH ×2 (09:40→20:21)
[2023-03-19] MEDS: amLODIPine 5 MG Tab PO SCH (09:41)
[2023-03-19] MEDS: Omeprazole 20 MG Cap.CR PO SCH (20:21)
[2023-03-19] MEDS: Pravastatin 20 MG Tab PO SCH (20:21)
[2023-03-19] MEDS: LORazepam 1 MG Tab PO PRN (20:22)
[2023-03-20] MEDS ORDERED: FOSFOMYCIN 3 GM PO SCH (09:00)
[2023-03-20] MEDS: amLODIPine 5 MG Tab PO SCH (09:25)
[2023-03-20] MEDS: Saccharomyces Boulardii (Probiotic) 250 MG Cap PO SCH ×2 (09:25→21:19)
[2023-03-20] MEDS: Folic Acid 1 MG Tab PO SCH (09:25)
[2023-03-20] MEDS: Heparin Sodium 5,000 Units/ML Vial SUBCUT SCH ×2 (09:26→21:19)
[2023-03-20] MEDS: Aspirin 81 MG Tab.EC PO SCH (09:26)
[2023-03-20] MEDS: Baclofen 10 MG Tab PO SCH ×2 (09:26→21:18)
[2023-03-20] MEDS: Docusate Sodium 100 MG Cap PO SCH ×2 (09:26→21:19)
[2023-03-20] MEDS: MIRABEGRON 25 MG PO SCH (09:27)
[2023-03-20] MEDS: TROSPIUM 20 MG PO SCH ×2 (09:27→21:19)
[2023-03-20 10:11] LABS: PERCENT FE SATURATION 39.2 % (20.0-50.0)
[2023-03-20] MEDS: Pravastatin 20 MG Tab PO SCH (21:18)
[2023-03-20] MEDS: Omeprazole 20 MG Cap.CR PO SCH (21:19)
[2023-03-21] MEDS: Docusate Sodium 100 MG Cap PO SCH ×2 (09:06→21:34)
[2023-03-21] MEDS: Folic Acid 1 MG Tab PO SCH (09:06)
[2023-03-21] MEDS: Saccharomyces Boulardii (Probiotic) 250 MG Cap PO SCH ×2 (09:06→21:33)
[2023-03-21] MEDS: Aspirin 81 MG Tab.EC PO SCH (09:07)
[2023-03-21] MEDS: Baclofen 10 MG Tab PO SCH ×2 (09:07→21:34)
[2023-03-21] MEDS: Heparin Sodium 5,000 Units/ML Vial SUBCUT SCH ×2 (09:07→21:33)
[2023-03-21] MEDS: amLODIPine 5 MG Tab PO SCH (09:07)
[2023-03-21] MEDS: MIRABEGRON 25 MG PO SCH (09:08)
[2023-03-21] MEDS: TROSPIUM 20 MG PO SCH ×2 (09:09→21:38)
[2023-03-21 20:31] VITALS: PULSE 76
[2023-03-21] MEDS: Omeprazole 20 MG Cap.CR PO SCH (21:33)
[2023-03-21] MEDS: Acetaminophen 325 MG Tab PO PRN (21:33)
[2023-03-21] MEDS: Pravastatin 20 MG Tab PO SCH (21:34)
[2023-03-22 07:56] VITALS: BP 126/62
[2023-03-22] MEDS: Docusate Sodium 100 MG Cap PO SCH (09:24)
[2023-03-22] MEDS: amLODIPine 5 MG Tab PO SCH (09:25)
[2023-03-22] MEDS: Saccharomyces Boulardii (Probiotic) 250 MG Cap PO SCH (09:25)
[2023-03-22] MEDS: Folic Acid 1 MG Tab PO SCH (09:25)
[2023-03-22] MEDS: Aspirin 81 MG Tab.EC PO SCH (09:25)
[2023-03-22] MEDS: Baclofen 10 MG Tab PO SCH (09:25)
[2023-03-22] MEDS: MIRABEGRON 25 MG PO SCH (09:27)
[2023-03-22] MEDS: TROSPIUM 20 MG PO SCH (09:27)
[2023-03-22] MEDS: Heparin Sodium 5,000 Units/ML Vial SUBCUT SCH (09:27)
== END 2023-03-22 14:20 | disposition home or self-care (01) | DRG 698 ==
LOC: DL.MS 10:12
PROVIDERS: ADMIT Internal Medicine; ATTEND Internal Medicine
PROC: 0T2BX0Z Change Drainage Device in Bladder, External Approach (ICD-10-PCS; principal; 2023-03-13)
DX: T83.511A Infection and inflammatory reaction due to indwelling urethral catheter, initial encounter (principal); A41.9 Sepsis, unspecified organism; N13.30 Unspecified hydronephrosis; N17.9 Acute kidney failure, unspecified; N39.0 Urinary tract infection, site not specified; G35 Multiple sclerosis; N31.9 Neuromuscular dysfunction of bladder, unspecified; E78.00 Pure hypercholesterolemia, unspecified; I12.9 Hypertensive chronic kidney disease with stage 1 through stage 4 chronic kidney disease, or unspecified chronic kidney disease; E11.22 Type 2 diabetes mellitus with diabetic chronic kidney disease; G47.30 Sleep apnea, unspecified; K59.09 Other constipation; N40.0 Benign prostatic hyperplasia without lower urinary tract symptoms; N18.9 Chronic kidney disease, unspecified; R41.82 Altered mental status, unspecified; Z87.891 Personal history of nicotine dependence; Z88.8 Allergy status to other drugs, medicaments and biological substances; Z79.82 Long term (current) use of aspirin; Z79.899 Other long term (current) drug therapy; Z90.49 Acquired absence of other specified parts of digestive tract; Z98.890 Other specified postprocedural states
CPT/HCPCS: 36415; 80048; 82728; 82947; 83540; 83550; 85025; 97110-GO; 97110-GP; 97161-GP; 97165-GO; 97530-GO; 97530-GP; 99306; 99309; 99316; A9270-GY; J1335; J1644; J3490

== ENCOUNTER 2023-05-13 16:14 | Inpatient (IN) | payer MEDICARE, BC ==
[2023-05-13] MEDS ORDERED: Sodium Chloride 0.9% 10 ML Syringe FLUSH PRN (16:17)
[2023-05-13] MEDS ORDERED: Sodium Chloride 0.9% 1,000 ML IV ONE ×2 (16:20→17:25)
[2023-05-13 16:43] LABS: BASOPHILS PERCENT AUTO 0.6 % (0.0-1.0); EOSINOPHILS PERCENT AUTO 0.5 % (1.0-3.0); HEMATOCRIT 32.8 % (40.0-54.0); HEMOGLOBIN 10.7 g/dL (14.0-18.0); LYMPHOCYTES PERCENT AUTO 15.1 % (20.5-50.1); MEAN CORPUSCULAR HEMOGLOBIN 33.8 pg (27.0-34.0); MEAN CORPUSCULAR HGB CONC 32.6 g/dL (33.0-35.0); MEAN CORPUSCULAR VOLUME 103.5 fL (80-100); MONOCYTES PERCENT AUTO 13.1 % (2-8); NEUTROPHILS PERCENT AUTO 70.7 % (42.2-75.2); PLATELET COUNT,PLT 220 10^3/uL (150-450); RED BLOOD CELL COUNT 3.17 10^6/uL (4.6-6.2); WHITE BLOOD CELL COUNT,WBC 12.6 10^3/uL (5.0-10.0)
[2023-05-13 16:58] LABS: APPEARANCE,URINE SLIGHTLY CLOUDY (CLEAR); BILIRUBIN,URINE NEGATIVE (NEGATIVE); COLOR,URINE YELLOW (YELLOW); GLUCOSE,URINE NEGATIVE (NEGATIVE); KETONES,URINE NEGATIVE (NEGATIVE); LEUKOCYTE ESTERASE,URINE NEGATIVE (NEGATIVE); NITRITE,URINE NEGATIVE (NEGATIVE); OCCULT BLOOD,URINE LARGE (NEGATIVE); PROTEIN,URINE 100 (NEGATIVE); UROBILINOGEN,URINE 0.2 mg/dL (0.2-1.0)
[2023-05-13 17:04] LABS: ALBUMIN 3.3 g/dL (3.4-5.0); ANION GAP 12.9 mEq/L (7-13); BILIRUBIN TOTAL 0.4 mg/dL (0.2-1.0); BUN/CREATININE RATIO 14.2 (No establ ref range); C-REACTIVE PROTEIN 9.22 ng/dL (<=0.50); CALCIUM 8.4 mg/dL (8.5-10.1); CREATININE 1.48 mg/dL (0.70-1.30); EST CRCL DRUG DOSING (CG) 39.15 mL/min; POTASSIUM,K 3.9 mmol/L (3.5-5.1); PROTEIN TOTAL,TP 7.4 g/dL (6.4-8.2)
[2023-05-13 17:08] LABS: A/G RATIO 0.8
[2023-05-13 17:09] LABS: LACTIC ACID 2.3 mmol/L (0.4-2.0)
[2023-05-13] MEDS ORDERED: Ciprofloxacin in D5W 400 MG in Premix Bag 1 BAG IV ONE ×2 (17:13)
[2023-05-13 17:22] LABS: RBC,URINE SEMI-PACKED /HPF (0-5)
[2023-05-13 17:23] LABS: BACTERIA,URINE FEW /HPF (0-FEW/HPF); EPITHELIAL CELLS,URINE RARE /HPF (NOT SEEN); MUCUS,URINE FEW /LPF (NOT SEEN)
[2023-05-13] MEDS ORDERED: Albuterol/Ipratropium 3.0-0.5 MG/3 ML Neb Soln NEB PRN (19:57)
[2023-05-13] MEDS ORDERED: Magnesium Hydroxide 400 MG/5 ML Susp 30 ML Cup PO PRN (19:57)
[2023-05-13] MEDS ORDERED: Polyethylene Glycol 3350 Powder 17 GM Packet PO PRN (19:57)
[2023-05-13] MEDS ORDERED: Ondansetron 4 MG/2 ML SDV IVPUSH PRN (19:57)
[2023-05-13] MEDS ORDERED: Naloxone 2 MG/2 ML Syringe IVPUSH PRN (19:57)
[2023-05-13] MEDS ORDERED: HYDROmorphone 0.5 MG/0.5 ML Syringe IVPUSH PRN (19:57)
[2023-05-13] MEDS ORDERED: traMADol 50 MG Tab PO PRN (19:59)
[2023-05-13] MEDS ORDERED: LORazepam 1 MG Tab PO PRN (20:04)
[2023-05-13] MEDS ORDERED: Sodium Chloride 0.9% 1,000 ML IV SCH (20:45)
[2023-05-13] MEDS: Piperacillin/Tazobactam 3.375 GM in Sodium Chloride 0.9% 100 ML IV SCH (20:53)
[2023-05-13] MEDS: Saccharomyces Boulardii (Probiotic) 250 MG Cap PO SCH (22:27)
[2023-05-13] MEDS: Baclofen 10 MG Tab PO SCH (22:27)
[2023-05-13] MEDS: Acetaminophen 325 MG Tab PO PRN (22:34)
[2023-05-14] MEDS: Piperacillin/Tazobactam 3.375 GM in Sodium Chloride 0.9% 100 ML IV SCH ×4 (02:12→20:40)
[2023-05-14 06:52] LABS: BASOPHILS PERCENT AUTO 0.3 % (0.0-1.0); EOSINOPHILS PERCENT AUTO 0.4 % (1.0-3.0); HEMATOCRIT 33.5 % (40.0-54.0); HEMOGLOBIN 10.9 g/dL (14.0-18.0); MEAN CORPUSCULAR HEMOGLOBIN 33.5 pg (27.0-34.0); MEAN CORPUSCULAR HGB CONC 32.5 g/dL (33.0-35.0); MEAN CORPUSCULAR VOLUME 103.1 fL (80-100); MONOCYTES PERCENT AUTO 13.3 % (2-8); PLATELET COUNT,PLT 176 10^3/uL (150-450); RED BLOOD CELL COUNT 3.25 10^6/uL (4.6-6.2); WHITE BLOOD CELL COUNT,WBC 12.2 10^3/uL (5.0-10.0)
[2023-05-14 07:20] LABS: ALBUMIN 2.9 g/dL (3.4-5.0); ANION GAP 14.8 mEq/L (7-13); BILIRUBIN TOTAL 0.5 mg/dL (0.2-1.0); BUN/CREATININE RATIO 12.9 (No establ ref range); C-REACTIVE PROTEIN 17.41 ng/dL (<=0.50); CALCIUM 8.3 mg/dL (8.5-10.1); CREATININE 1.39 mg/dL (0.70-1.30); EST CRCL DRUG DOSING (CG) 36.26 mL/min; MAGNESIUM 1.8 mg/dL (1.8-2.4); POTASSIUM,K 3.8 mmol/L (3.5-5.1); PROTEIN TOTAL,TP 6.7 g/dL (6.4-8.2)
[2023-05-14 07:30] LABS: A/G RATIO 0.76
[2023-05-14] MEDS: Saccharomyces Boulardii (Probiotic) 250 MG Cap PO SCH ×2 (08:51→21:14)
[2023-05-14] MEDS: Baclofen 10 MG Tab PO SCH ×2 (08:52→21:13)
[2023-05-14] MEDS: amLODIPine 5 MG Tab PO SCH (08:53)
[2023-05-14] MEDS: Ciprofloxacin in D5W 400 MG in Premix Bag 1 BAG IV SCH ×4 (10:43→21:13)
[2023-05-14] MEDS: MIRABEGRON 25 MG PO SCH (11:06)
[2023-05-14] MEDS: TROSPIUM 20 MG PO SCH ×3 (11:07→21:14)
[2023-05-14] MEDS: Acetaminophen 325 MG Tab PO PRN ×2 (15:33→21:10)
[2023-05-14] MEDS ORDERED: Metoprolol Tartrate 5 MG/5 ML SDV IVPUSH PRN (16:31)
[2023-05-14] MEDS: Pravastatin 20 MG Tab PO SCH (21:13)
[2023-05-14] MEDS: Omeprazole 20 MG Cap.CR PO SCH (21:14)
[2023-05-15] MEDS: Piperacillin/Tazobactam 3.375 GM in Sodium Chloride 0.9% 100 ML IV SCH ×4 (02:35→20:11)
[2023-05-15 06:27] LABS: BASOPHILS PERCENT AUTO 0.3 % (0.0-1.0); EOSINOPHILS PERCENT AUTO 1.8 % (1.0-3.0); HEMOGLOBIN 9.9 g/dL (14.0-18.0); LYMPHOCYTES PERCENT AUTO 11.7 % (20.5-50.1); MEAN CORPUSCULAR VOLUME 103.1 fL (80-100); MONOCYTES PERCENT AUTO 9.3 % (2-8); NEUTROPHILS PERCENT AUTO 76.9 % (42.2-75.2); PLATELET COUNT,PLT 179 10^3/uL (150-450); RED BLOOD CELL COUNT 2.91 10^6/uL (4.6-6.2); WHITE BLOOD CELL COUNT,WBC 10.3 10^3/uL (5.0-10.0)
[2023-05-15 06:52] LABS: ALBUMIN 2.5 g/dL (3.4-5.0); ANION GAP 13.7 mEq/L (7-13); BILIRUBIN TOTAL 0.4 mg/dL (0.2-1.0); BUN/CREATININE RATIO 12.6 (No establ ref range); C-REACTIVE PROTEIN 23.17 ng/dL (<=0.50); CREATININE 1.35 mg/dL (0.70-1.30); EST CRCL DRUG DOSING (CG) 37.33 mL/min; MAGNESIUM 1.9 mg/dL (1.8-2.4); POTASSIUM,K 3.7 mmol/L (3.5-5.1); PROTEIN TOTAL,TP 6.2 g/dL (6.4-8.2)
[2023-05-15 06:54] LABS: A/G RATIO 0.68
[2023-05-15] MEDS ORDERED: FOSFOMYCIN TROMETHAMINE 3 GM PO SCH (09:00)
[2023-05-15] MEDS: amLODIPine 5 MG Tab PO SCH (09:17)
[2023-05-15] MEDS: Baclofen 10 MG Tab PO SCH ×2 (09:18→21:23)
[2023-05-15] MEDS: Saccharomyces Boulardii (Probiotic) 250 MG Cap PO SCH ×2 (09:18→21:23)
[2023-05-15] MEDS: MIRABEGRON 25 MG PO SCH (09:19)
[2023-05-15] MEDS: TROSPIUM 20 MG PO SCH ×2 (09:19→21:27)
[2023-05-15] MEDS: Ciprofloxacin in D5W 400 MG in Premix Bag 1 BAG IV SCH ×4 (12:30→21:24)
[2023-05-15] MEDS: Sennosides/Docusate Sodium 50-8.6 MG Tab PO PRN (14:49)
[2023-05-15] MEDS: Acetaminophen 325 MG Tab PO PRN (15:37)
[2023-05-15] MEDS: Pravastatin 20 MG Tab PO SCH (21:23)
[2023-05-15] MEDS: Omeprazole 20 MG Cap.CR PO SCH (21:23)
[2023-05-16] MEDS: Piperacillin/Tazobactam 3.375 GM in Sodium Chloride 0.9% 100 ML IV SCH ×4 (02:08→19:28)
[2023-05-16 06:12] LABS: BASOPHILS PERCENT AUTO 0.3 % (0.0-1.0); HEMATOCRIT 28.5 % (40.0-54.0); HEMOGLOBIN 9.3 g/dL (14.0-18.0); LYMPHOCYTES PERCENT AUTO 12.7 % (20.5-50.1); MEAN CORPUSCULAR HEMOGLOBIN 33.6 pg (27.0-34.0); MEAN CORPUSCULAR HGB CONC 32.6 g/dL (33.0-35.0); MEAN CORPUSCULAR VOLUME 102.9 fL (80-100); MONOCYTES PERCENT AUTO 9.4 % (2-8); NEUTROPHILS PERCENT AUTO 73.6 % (42.2-75.2); PLATELET COUNT,PLT 182 10^3/uL (150-450); RED BLOOD CELL COUNT 2.77 10^6/uL (4.6-6.2)
[2023-05-16 06:48] LABS: ALBUMIN 2.3 g/dL (3.4-5.0); ANION GAP 12.7 mEq/L (7-13); BILIRUBIN TOTAL 0.3 mg/dL (0.2-1.0); BUN/CREATININE RATIO 12.8 (No establ ref range); C-REACTIVE PROTEIN 20.97 ng/dL (<=0.50); CALCIUM 7.8 mg/dL (8.5-10.1); CREATININE 1.25 mg/dL (0.70-1.30); EST CRCL DRUG DOSING (CG) 40.32 mL/min; MAGNESIUM 1.9 mg/dL (1.8-2.4); POTASSIUM,K 3.7 mmol/L (3.5-5.1); PROTEIN TOTAL,TP 6.1 g/dL (6.4-8.2)
[2023-05-16 06:59] LABS: A/G RATIO 0.61
[2023-05-16] MEDS: amLODIPine 5 MG Tab PO SCH (10:20)
[2023-05-16] MEDS: Saccharomyces Boulardii (Probiotic) 250 MG Cap PO SCH ×2 (10:20→20:18)
[2023-05-16] MEDS: Ciprofloxacin in D5W 400 MG in Premix Bag 1 BAG IV SCH ×4 (10:20→20:17)
[2023-05-16] MEDS: Baclofen 10 MG Tab PO SCH ×2 (10:21→20:18)
[2023-05-16] MEDS: MIRABEGRON 25 MG PO SCH (10:29)
[2023-05-16] MEDS: TROSPIUM 20 MG PO SCH ×2 (10:29→20:20)
[2023-05-16] MEDS: Sennosides/Docusate Sodium 50-8.6 MG Tab PO PRN (10:31)
[2023-05-16] MEDS ORDERED: Furosemide 20 MG/2 ML VIAL IVPUSH ONE (11:40)
[2023-05-16] MEDS ORDERED: Furosemide 40 MG Tab PO ONE (12:01)
[2023-05-16] MEDS: Acetaminophen 325 MG Tab PO PRN (20:18)
[2023-05-16] MEDS: Omeprazole 20 MG Cap.CR PO SCH (20:18)
[2023-05-16] MEDS: Pravastatin 20 MG Tab PO SCH (20:18)
[2023-05-16] MEDS ORDERED: Ciprofloxacin 500 MG Tab PO STA (20:47)
[2023-05-17 06:11] LABS: BASOPHILS PERCENT AUTO 0.1 % (0.0-1.0); EOSINOPHILS PERCENT AUTO 5.4 % (1.0-3.0); HEMATOCRIT 28.6 % (40.0-54.0); HEMOGLOBIN 9.3 g/dL (14.0-18.0); LYMPHOCYTES PERCENT AUTO 17.8 % (20.5-50.1); MEAN CORPUSCULAR HEMOGLOBIN 33.2 pg (27.0-34.0); MEAN CORPUSCULAR HGB CONC 32.5 g/dL (33.0-35.0); MEAN CORPUSCULAR VOLUME 102.1 fL (80-100); MONOCYTES PERCENT AUTO 10.2 % (2-8); NEUTROPHILS PERCENT AUTO 66.5 % (42.2-75.2); PLATELET COUNT,PLT 220 10^3/uL (150-450); WHITE BLOOD CELL COUNT,WBC 8.1 10^3/uL (5.0-10.0)
[2023-05-17 06:28] LABS: ALBUMIN 2.4 g/dL (3.4-5.0); ANION GAP 12.9 mEq/L (7-13); BILIRUBIN TOTAL 0.3 mg/dL (0.2-1.0); BUN/CREATININE RATIO 13.2 (No establ ref range); C-REACTIVE PROTEIN 16.59 ng/dL (<=0.50); CALCIUM 8.2 mg/dL (8.5-10.1); CREATININE 1.14 mg/dL (0.70-1.30); EST CRCL DRUG DOSING (CG) 44.21 mL/min; MAGNESIUM 1.9 mg/dL (1.8-2.4); POTASSIUM,K 3.9 mmol/L (3.5-5.1); PROTEIN TOTAL,TP 6.3 g/dL (6.4-8.2)
[2023-05-17 06:31] LABS: A/G RATIO 0.62
[2023-05-17] MEDS: Saccharomyces Boulardii (Probiotic) 250 MG Cap PO SCH (08:33)
[2023-05-17] MEDS: Baclofen 10 MG Tab PO SCH (08:33)
[2023-05-17] MEDS: amLODIPine 5 MG Tab PO SCH (08:34)
[2023-05-17] MEDS: MIRABEGRON 25 MG PO SCH (08:35)
[2023-05-17] MEDS: TROSPIUM 20 MG PO SCH (08:35)
[2023-05-17] MEDS ORDERED: Ciprofloxacin 500 MG Tab PO ONE (10:15)
== END 2023-05-17 10:30 | disposition home or self-care (01) | DRG 698 ==
LOC: DL.ED 16:14 → DL.MS 17:20
PROVIDERS: ADMIT Internal Medicine; ATTEND Internal Medicine
DX: T83.510A Infection and inflammatory reaction due to cystostomy catheter, initial encounter (principal); Z91.040 Latex allergy status; A41.9 Sepsis, unspecified organism; J90 Pleural effusion, not elsewhere classified; N39.0 Urinary tract infection, site not specified; E11.9 Type 2 diabetes mellitus without complications; E87.20 Acidosis, unspecified; I12.9 Hypertensive chronic kidney disease with stage 1 through stage 4 chronic kidney disease, or unspecified chronic kidney disease; E78.5 Hyperlipidemia, unspecified; G47.33 Obstructive sleep apnea (adult) (pediatric); E11.22 Type 2 diabetes mellitus with diabetic chronic kidney disease; K21.9 Gastro-esophageal reflux disease without esophagitis; G35 Multiple sclerosis; N52.9 Male erectile dysfunction, unspecified; D50.9 Iron deficiency anemia, unspecified; Y84.6 Urinary catheterization as the cause of abnormal reaction of the patient, or of later complication, without mention of misadventure at the time of the procedure; E11.65 Type 2 diabetes mellitus with hyperglycemia; Z79.899 Other long term (current) drug therapy; Z98.890 Other specified postprocedural states; Z79.82 Long term (current) use of aspirin; Z88.8 Allergy status to other drugs, medicaments and biological substances; Z91.041 Radiographic dye allergy status; Z90.49 Acquired absence of other specified parts of digestive tract
CPT/HCPCS: 36415; 71045; 80053; 81001; 83605; 83735; 84145; 84484; 85025; 86140; 87040; 87086; 93005; 93010; 97161-GP; 97165-GO; 97530-GO; 99223; 99232; 99233; 99238; A9270-GY; J0744; J2543; J3490; J7030